=== PATIENT | female | born 1935 | race Caucasian/White ===

== ENCOUNTER 2017-06-25 11:35 | Emergency (ER) | payer MEDICARE, OTHER ==
[~2017-06-25] VITALS: Ht 170.2 cm; Wt 58.1 kg
[~2017-06-25 11:35] MED LIST: ALBIPROI; ALBU90OI; ALBU90OI61 INH; ATEN50; BECL40OI INH; CIPHYDOTSU AS; CITA20; CITA20 PO; CLON.1; LEVO750 PO; LISI10; LISI20 PO; LORA.5 PO; LOVA40; Lopressor PO; METO25ER PO; METO50 PO; OMEP20ER; OMEP20ER PO; Percocet 5-3251 EACH PO; QVAR; RXLORA1 PO; SIMV10 PO; VICODIN 5-3001 EACH PO; WARF5; WARF5 PO; Zocor PO; Zofran4 MG PO
[2017-06-25 12:14] LABS: BASOPHILS ABSOLUTE AUTO 0.04 K/mm3 (0.00-0.23); BASOPHILS PERCENT AUTO 1 % (0-2); EOSINOPHILS ABSOLUTE AUTO 0.06 K/mm3 (0.00-0.68); EOSINOPHILS PERCENT AUTO 1 % (0-6); Hematocrit 40.7 % (33.0-51.0); Hemoglobin 13.3 g/dL (11.5-16.0); IMMATURE GRAN ABSOLUTE AUTO 0.01 K/mm3 (0.00-0.10); IMMATURE GRAN PERCENT AUTO 0 % (0-1); LYMPHOCYTES PERCENT AUTO 13 % (21-46); MONOCYTES ABSOLUTE AUTO 0.56 K/mm3 (0.16-1.47); MONOCYTES PERCENT AUTO 11 % (4-13); Mean Corpuscular HGB 31.1 pg (26.0-34.0); Mean Corpuscular HGB Conc 32.7 g/dL (31.5-36.5); Mean Corpuscular Volume 95 fL (80-100); Mean Platelet Volume 10.8 fL (9.1-12.4); NEUTROPHILS ABSOLUTE AUTO 3.91 K/mm3 (1.96-9.15); NEUTROPHILS PERCENT AUTO 74 % (41-73); Platelet Count 191 K/mm3 (150-400); RDW Coefficient Variation 15.7 % (11.7-14.2); Red Blood Cell Count 4.28 M/mm3 (3.80-5.20); White Blood Cell Count 5.28 K/mm3 (4.00-11.30)
[2017-06-25 12:41] LABS: Alanine Aminotransfer (ALT/SGP 40 U/L (12-78); Albumin, Blood 2.8 g/dL (3.4-5.0); Albumin/Globulin Ratio 0.5 (0.8-1.8); Alk Phos 185 U/L (50-136); Anion Gap 8 mmol/L (6-16); Aspartate Aminotrans (AST/SGOT 48 U/L (12-37); Bilirubin, Total 1.5 mg/dL (0.1-1.0); Blood Urea Nitrogen 15 mg/dL (8-24); Bun/Creatinine Ratio 22.4 (12.0-20.0); CO2, Blood 24 mmol/L (21-32); Calcium, Blood 8.8 mg/dL (8.5-10.1); Chloride, Blood 104 mmol/L (98-108); Creatinine, Blood 0.67 mg/dL (0.40-1.00); Globulin, Blood 5.3 g/dL (2.2-4.0); Glomerular Filtration Rate >60 (60-); Glucose, Blood 92 mg/dL (70-99); Potassium, Blood 3.3 mmol/L (3.5-5.5); Sodium, Blood 136 mmol/L (136-145); Total Protein, Blood 8.1 g/dL (6.4-8.2); Troponin I 0.021 ng/mL (0.000-0.040)
[2017-06-25 13:46] LABS: International Normalized Ratio 2.55; Prothrombin Time Results 27.3 Sec (9.7-11.5)
[2017-06-25] MEDS ORDERED: LEVFLO500 PO (14:11)
== END 2017-06-25 14:22 | disposition home or self-care (01) ==
LOC: ER 11:35
PROVIDERS: Emergency Medicine
DX: J44.0 Chronic obstructive pulmonary disease with (acute) lower respiratory infection (principal); J18.9 Pneumonia, unspecified organism; I48.91 Unspecified atrial fibrillation; I10 Essential (primary) hypertension; Z88.1 Allergy status to other antibiotic agents; Z88.0 Allergy status to penicillin; Z88.2 Allergy status to sulfonamides; Z79.899 Other long term (current) drug therapy; Z79.01 Long term (current) use of anticoagulants
CPT/HCPCS: 36415; 71045; 80053; 83880; 84484; 85025; 85610; 93005; 93010; 94640; 96374; 99283; J2930

== ENCOUNTER 2018-02-05 11:36 | Inpatient (IN) | payer MEDICARE, OTHER ==
[~2018-02-05] VITALS: Ht 170.2 cm; Wt 72.4 kg
[~2018-02-05 11:36] MED LIST changes: +LEVFLO500 PO
[2018-02-05 12:35] LABS: BASOPHILS ABSOLUTE AUTO 0.02 K/mm3 (0.00-0.23); BASOPHILS PERCENT AUTO 0 % (0-2); EOSINOPHILS ABSOLUTE AUTO 0.08 K/mm3 (0.00-0.68); EOSINOPHILS PERCENT AUTO 1 % (0-6); Hematocrit 42.8 % (33.0-51.0); Hemoglobin 13.3 g/dL (11.5-16.0); IMMATURE GRAN ABSOLUTE AUTO 0.05 K/mm3 (0.00-0.10); IMMATURE GRAN PERCENT AUTO 1 % (0-1); LYMPHOCYTES ABSOLUTE AUTO 1.29 K/mm3 (0.84-5.20); LYMPHOCYTES PERCENT AUTO 20 % (21-46); MONOCYTES ABSOLUTE AUTO 0.85 K/mm3 (0.16-1.47); MONOCYTES PERCENT AUTO 13 % (4-13); Mean Corpuscular HGB Conc 31.1 g/dL (31.5-36.5); Mean Corpuscular Volume 100 fL (80-100); Mean Platelet Volume 11.5 fL (9.1-12.4); NEUTROPHILS PERCENT AUTO 64 % (41-73); Platelet Count 176 K/mm3 (150-400); RDW Coefficient Variation 15.8 % (11.7-14.2); RDW Standard Deviation 57.3 fL (35.1-46.3); Red Blood Cell Count 4.29 M/mm3 (3.80-5.20); White Blood Cell Count 6.39 K/mm3 (4.00-11.30)
[2018-02-05 12:50] LABS: Albumin/Globulin Ratio 0.6 (0.8-1.8); Bilirubin, Total 1.3 mg/dL (0.1-1.0); Creatinine, Blood 1.15 mg/dL (0.40-1.00); Globulin, Blood 5.3 g/dL (2.2-4.0); Potassium, Blood 4.1 mmol/L (3.5-5.5); Total Protein, Blood 8.3 g/dL (6.4-8.2)
[2018-02-05 12:54] LABS: Prothrombin Time Results 41.9 Sec (9.7-11.5)
[2018-02-05 13:10] LABS: International Normalized Ratio 4.43
[2018-02-05 16:45] LABS: Source, Urine Catheter
[2018-02-05 16:55] LABS: Appearance, Urine Clear (Clear); Blood, Urine 2+ (Neg); Color, Urine Yellow (P-Yellow); Glucose Qualitative, Urine Neg (Neg); Ketones, Urine Neg (Neg); Leukocyte Esterase, Urine 1+ (Neg); Nitrite, Urine Neg (Neg); Protein, Urine 3+ (Neg); Specific Gravity, Urine 1.025 (1.003-1.022); Urobilinogen, Urine 2+ (Normal)
[2018-02-05] MEDS ORDERED: Prilosec Otc20 MG (16:59)
[2018-02-05 17:07] LABS: Bilirubin, Urine 1+ (Neg)
[2018-02-05 17:37] LABS: Bacteria Rare /hpf; Red Blood Cells, Urine 0-2 /hpf (0-2); Squamous Epithelial Cells Few /hpf (Few)
--- NOTE | 2018-02-05 18:21 | NUR ---
SUMMARY PT ADMITTED TO THE FLOOR, FAMILY AT THE BEDSIDE. FFP STARTED PER ORDERS, PT IS TOLERATING INFUSION WITH NO PROBLEMS AT THIS POINT. RIGHT LEG ETERNALLY ROTATED, PEDAL PULSE INTACT. BILATERAL LEGS ELEVATED ON PILLOWS. PT'S FAMILY STATED PT HIT HER HEAD DURING THE FALL. WAS NOTIFIED VIA PHONE. NEURO CHECKS WNL. PAIN MEDICATED WITH PO PAIN MEDICATION. FISCHER CATH WAS PLACED PER JONNATHAN, URINE SAMPLE SENT. IV LASIX ADMINISTERED. LUNGS ARE DIMINISHED THROUGH OUT. PT IS 92% ON 4 L 02 VIA OXIMIZER, DENIES SOB/CP. WCTM AT THIS TIME.
--- NOTE | 2018-02-05 19:15 | NUR ---
UNIT 2 OF 3 FFP'S STARTED. WILL CONTINUE TO MONITOR.
--- NOTE | 2018-02-05 21:45 | NUR ---
UNIT 2 OF 3 FFP'S COMPLETED. PIV FLUSHES WITH EASE. TOELRATED WELL. SAFETY MEASURES IN PLACE. WILL CONTINUE TO MONITOR.
--- NOTE | 2018-02-05 21:51 | NUR ---
UNIT 3 OF 3 FFP'S STARTED. WILL CONTINUE TO MONITOR.
--- NOTE | 2018-02-05 23:45 | NUR ---
UNIT 3 OF 3 FFP'S COMPLETED, PIV FLUSED WITH EASE, TOLERATED WELL. SAFETY MEASURES IN PLACE. WILL CONTINUE TO MONITOR.
[2018-02-06 01:54] LABS: BASOPHILS ABSOLUTE AUTO 0.01 K/mm3 (0.00-0.23); BASOPHILS PERCENT AUTO 0 % (0-2); EOSINOPHILS PERCENT AUTO 0 % (0-6); Hematocrit 39.7 % (33.0-51.0); Hemoglobin 12.4 g/dL (11.5-16.0); IMMATURE GRAN ABSOLUTE AUTO 0.02 K/mm3 (0.00-0.10); IMMATURE GRAN PERCENT AUTO 0 % (0-1); LYMPHOCYTES ABSOLUTE AUTO 0.36 K/mm3 (0.84-5.20); LYMPHOCYTES PERCENT AUTO 6 % (21-46); MONOCYTES ABSOLUTE AUTO 0.87 K/mm3 (0.16-1.47); MONOCYTES PERCENT AUTO 14 % (4-13); Mean Corpuscular HGB 30.5 pg (26.0-34.0); Mean Corpuscular HGB Conc 31.2 g/dL (31.5-36.5); Mean Corpuscular Volume 98 fL (80-100); Mean Platelet Volume 11.8 fL (9.1-12.4); NEUTROPHILS ABSOLUTE AUTO 4.83 K/mm3 (1.96-9.15); NEUTROPHILS PERCENT AUTO 79 % (41-73); Platelet Count 144 K/mm3 (150-400); RDW Coefficient Variation 15.9 % (11.7-14.2); RDW Standard Deviation 56.6 fL (35.1-46.3); Red Blood Cell Count 4.06 M/mm3 (3.80-5.20); White Blood Cell Count 6.09 K/mm3 (4.00-11.30)
[2018-02-06 02:06] LABS: Bun/Creatinine Ratio 21.8 (12.0-20.0); Calcium, Blood 9.2 mg/dL (8.5-10.1); Creatinine, Blood 1.19 mg/dL (0.40-1.00); Potassium, Blood 4.7 mmol/L (3.5-5.5)
[2018-02-06 02:08] LABS: International Normalized Ratio 2.39; Prothrombin Time Results 23.4 Sec (9.7-11.5)
--- NOTE | 2018-02-06 05:00 | NUR ---
HEPARIN ORDER VERIFIED WITH PHARMACY REGUARDING WHEN TO RESTART IT. CURRENT INR AT 2.39. WILL CONTINUE TO MONITOR.
--- NOTE | 2018-02-06 06:42 | NUR ---
LYING IN SEMI FOWLERS WITH EYES CLOSED. 3 UNITS OF FFP'S GIVEN AND HEPARIN DRIP STARTED PER MD ORDER. PAIN MANAGED WIRH TYLENOL AND ULTRAM. NO FURTHER CHANGES SINCE START OF SHIFT. SAFETY MEASURES IN PLACE. WILL GIVE HAND OFF TO ONCOMING SHIFT.
--- NOTE | 2018-02-06 08:38 | NUR ---
PATIENT AND DAUGHTER SPOKE WITH HOSP REP RE CODE STATUS: CHANGE TO FULL CODE.
--- NOTE | 2018-02-06 09:13 | NUR ---
Jeb was completing a nebulizer treatment and appeared comfortable and well supported. Her daughter was on site showing attention and concern. I engaged them in conversation, answered questions about her code status, and offered advance care planning education. No impediments encountered. The room engaged well, showed clear signs of interest and verbalized comprehension. POLST and OHD Advance Directive distributed and explained. Code status altered per request of principal from DNR /DNI to Full Code. Patient / Family have agreed to pursue a larger discussion around medical treatment preferences upon discharge, and complete and file a POLST / AD. I also provided pastoral companionship, words of reassurance and audible prayer for restored strength, healing and endurance.
[2018-02-06 10:43] LABS: International Normalized Ratio 2.1; Prothrombin Time Results 20.7 Sec (9.7-11.5)
--- NOTE | 2018-02-06 11:57 | NUR ---
HEPARIN GTT ADJUSTED TO 18.5 ML/HOUR PER PHARMACTY (14MG/KG/HR)
--- NOTE | 2018-02-06 12:12 | NUR ---
HEPARIN GTT RATE CHANGED TO 19.9 ML/HR PER PHARMACY.
--- NOTE | 2018-02-06 17:09 | NUR ---
SHIFT SUMMARY PATIENT STATES PAIN CONTROLLED WITH PO AND IV PAIN MED. TOLERATING PO. REPOSITIONED FOR COMFORT, SKIN INTEGRITY. DAUGHTERS IN MOST OF SHIFT. PLAN FOR OC TO OR TOMORROW.
--- NOTE | 2018-02-06 20:07 | NUR ---
DEBBIE BACK CONTACTED AND GIVEN INFORMATION OF CRITICAL VALUE OF APTT OF 104.8 WHO THEN INSTRUCTED NURSING TO CONTACT PHARMACY WHO IS MANAGING THE HEPARIN DRIP. HEPARIN DRIP TITRATED TO 18.5ML/HR PER PHARMACY. WILL CONTINUE TO MONITOR.
--- NOTE | 2018-02-07 05:15 | NUR ---
HEPARIN DRIP CHANGED PER PHARMACY AFTER SECOND CRITICAL LAB CALLED OF PTT OF 107.3. HEPARIN DRIP TO BE D/C AT 0700HRS THIS AM.
[2018-02-07 06:53] LABS: International Normalized Ratio 2.52; Prothrombin Time Results 24.6 Sec (9.7-11.5)
[2018-02-07 09:32] LABS: International Normalized Ratio 1.74
[2018-02-07 09:35] LABS: Prothrombin Time Results 17.4 Sec (9.7-11.5)
[2018-02-07 11:02] LABS: International Normalized Ratio 1.52; Prothrombin Time Results 15.3 Sec (9.7-11.5)
--- NOTE | 2018-02-07 11:10 | NUR ---
PT TO PRE OP VIA HOSPITAL BED
--- NOTE | 2018-02-07 11:51 | NUR ---
DAY SURGERY RN | CALL FROM PHARMACY This RN entered verbal orders from Dr. Baca for cefazolin 2g. The computer flagged the medication as reactive with allergies in the EMAR. Clarified order with Dr. Baca stating that the patient had a history of allergic reaction. He stated that "I still want to give it anyway". This RN took a call from Janny (pharmacist) stating that "this looks like a real allergy" and advised to seek additional clarification from Dr. Baca. Padma Soliman recommended Clindamycin 900mg instead. This RN clarified a second time with Dr. Baca and he stated he wished to continue with administration of 2g of cefazolin. This was relayed to Janny Pharmacist by Beatriz MERRILL.
--- NOTE | 2018-02-07 12:08 | NUR ---
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 Baca and Dr. Starr saw the patient in PACU. Consents signed. Report to Kimmy MERRILL."
--- NOTE | 2018-02-07 12:41 | NUR ---
02/07/18 1241 Cat Nino PT ARRIVED TO OR WITH FISCHER CATH IN PLACE. DR MENDOZA CONFIRMED TO HAVE ANCEF GIVEN IV.
--- NOTE | 2018-02-07 14:00 | NUR ---
DR HORVATH HERE TO SEE PT; ORDERS RECEIVED.
--- NOTE | 2018-02-07 15:42 | NUR ---
OR TRANSFER AT 1345 POST RIGHT PRITESH ARTHROPLASTY. REPORT RECEIVED FROM DR URENA. PT IS INTUBATED AND CURRENTLY NOT ON SEDATION. PT OPENS HER EYES AND FOLLOWS COMMANDS. SHE SHAKES HER HEAD "NO" WHEN ASKED IF SHE IS HAVING PAIN. CURRENT VENT SETTINGS: A/C 16, TV 450, PEEP 5 AND FI02 OF 30%. SEE FLOWSHEET FOR VS. FAMILY HERE EARLIER AND UPDATED.
[2018-02-08 04:15] LABS: BASOPHILS ABSOLUTE AUTO 0.01 K/mm3 (0.00-0.23); BASOPHILS PERCENT AUTO 0 % (0-2); EOSINOPHILS PERCENT AUTO 0 % (0-6); Hematocrit 34.7 % (33.0-51.0); Hemoglobin 11.3 g/dL (11.5-16.0); IMMATURE GRAN ABSOLUTE AUTO 0.03 K/mm3 (0.00-0.10); IMMATURE GRAN PERCENT AUTO 0 % (0-1); LYMPHOCYTES ABSOLUTE AUTO 0.26 K/mm3 (0.84-5.20); LYMPHOCYTES PERCENT AUTO 4 % (21-46); MONOCYTES ABSOLUTE AUTO 0.93 K/mm3 (0.16-1.47); MONOCYTES PERCENT AUTO 13 % (4-13); Mean Corpuscular HGB Conc 32.6 g/dL (31.5-36.5); Mean Platelet Volume 12.1 fL (9.1-12.4); NEUTROPHILS ABSOLUTE AUTO 5.86 K/mm3 (1.96-9.15); NEUTROPHILS PERCENT AUTO 83 % (41-73); Platelet Count 125 K/mm3 (150-400); RDW Coefficient Variation 15.9 % (11.7-14.2); RDW Standard Deviation 54.3 fL (35.1-46.3); Red Blood Cell Count 3.64 M/mm3 (3.80-5.20); White Blood Cell Count 7.09 K/mm3 (4.00-11.30)
[2018-02-08 04:18] LABS: Mean Corpuscular Volume 95 fL (80-100)
[2018-02-08 04:39] LABS: Calcium, Blood 8.9 mg/dL (8.5-10.1); Creatinine, Blood 1.03 mg/dL (0.40-1.00); Potassium, Blood 3.9 mmol/L (3.5-5.5)
[2018-02-08 05:46] LABS: PO2 Arterial 74.4 mmHg (80-100); pH Blood Arterial 7.63 (7.35-7.45)
--- NOTE | 2018-02-08 06:21 | NUR ---
EARLY IN SHIFT PT NOTED TO BE "GUMMING" ON OG TUBE & W FURROWED BROW. BP & HR ALSO SL ELEVATED. PT WAS MED W FENTANYL 25 MCG & ALSO ULTRAM. PROPOFOL GTT FOR SEDATION & CONT W BILAT WRIST RESTRAINTS. PT AROUSES EASILY, ABLE TO NOD YES, BUT GEN SLEEPY. CONT AFIB. DURING WEANING TRIAL THIS AM, BP AGAIN ELEVATED & RR INCREASED. PROPOFOL RESTARTED AT 10 MCG/KG/MIN. DR BENITEZ NOTIFIED RE DVT PROPHYLAXIS. HE ADVISED THAT DR GATICA WOULD BE IN THIS AM TO SEE PT.
--- NOTE | 2018-02-08 09:43 | NUR ---
0730-ASSUMED CARE OF PT. PT IS SEDATED WITH 10MCG/KG/MIN OF PROPOFOL. NOTED PT IS GRIMACING, SLIGHTLY AWAKE, BUT NOT FOLLOWING COMMANDS. PT TRIES TO OPEN EYES TO VOICE. DR. GATICA AT BEDSIDE. UPDATED HIM OF PT'S STATUS. 09-HEPARIN DRIP WAS STARTED AT 11UNITS/KG/HR ORDERED. INCREASED PROPOFOL DRIP AT 25MCG/KG/MIN. PT HAS BEEN TEARFUL, INCOMFORTABLE, PT HAD RECEIVED A DOSE OF OXYCODONE. PT IS MOUTHING WORDS "THIRSTY." EXPLAINED TO PT THAT HOPEFULLY WE WILL BE ABLE TO EXTUBATE HER TODAY. PT'S DAUGHTER ADARSH AT BEDSIDE. UPDATED HER OF PT'S STATUS.
--- NOTE | 2018-02-08 09:49 | NUR ---
WHEN DR. WARNER CAME TO SEE PT. SHE WAS ALSO NOTIFIED REGARDING PT'S HEART RATE LOW 30M BEATS/MIN. PT HAD STATED THAT SHE ALWAYS HAS A LOW HR BUT NOT LOW 30 BEATS/MIN.
--- NOTE | 2018-02-08 10:03 | NUR ---
DR. GATICA WAS NOTIFIED REGARDING PT'S HR STILL ON THE 140s-150s DESPITE THE 25MG OF METOPROLOL THAT WAS GIVEN. ORDERS RECEIVED TO GIVE ANOTHER DOSE OF LOPRESSOR 25MG.
--- NOTE | 2018-02-08 11:51 | NUR ---
DR. HORVATH IS AWARE PT'S HR STILL IN THE 120s-130S DESPITE THE EXTRA DOSE OF LOPRESSOR. PT WAS STARTED ON AMIODARONE DRIP @ 1MG/MIN FOR 6 HOURS THEN 0.5MG/MIN THEREAFTER. PT RECEIVED 150MG IV BOLUS BEFORE DRIP WAS STARTED. PT'S HR CURRENTLY AT 102-110 BEATS/MIN. PT IS RECEIVING A 250ML BOLUS AT THIS TIME.
[2018-02-08 12:28] LABS: Hematocrit 33.8 % (33.0-51.0); Hemoglobin 11.1 g/dL (11.5-16.0)
--- NOTE | 2018-02-08 15:21 | NUR ---
PT WAS PLACED ON PRESSURE SUPPORT BY DR. HORVATH. SETTINGS ARE 9/5 FIO2 30%.
[2018-02-08 15:42] LABS: PCO2 Arterial 39.1 mmHg (35-45); PO2 Arterial 63.9 mmHg (80-100)
[2018-02-08 17:11] LABS: Hematocrit 38.6 % (33.0-51.0); Hemoglobin 12.3 g/dL (11.5-16.0)
--- NOTE | 2018-02-08 18:28 | NUR ---
DR. HORVATH WAS NOTIFIED REGARDING PT'S LOW URINE OUTPUT. INFORMED HER REGARDING PT'S SWALLOWING, PT WAS HAVING A LITTLE TROUBLE WITH CLEAR LIQUIDS, DID FINE WITH APPLESAUCE.
--- NOTE | 2018-02-08 19:19 | NUR ---
SHIFT SUMMARY: PT IS ALERT AND ORIENTED. PT WAS RECENTLY EXTUBATED THIS AFTERNOON AT 1557. PT IS CURRENTLY ON 2LPM NC. PT WAS CURRENTLY MEDICATED WITH ULTRAM. PT HAD A DOSE OF FENTANYL 12.5MCG FOR HIP PAIN POST EXTUBATION. SHE ALSO RECEIVED A DOSE OF OXYCODONE THIS MORNING. DRESSING TO R HIP IS DRY AND INTACT. PT WAS ABLE TO SWALLOW THIN LIQUIDS BUT WAS HAVING A LITTLE BIT OF DIFFICULTY SWALLOWING. PT DID NOT HAVE ANY DIFFICULTY WHEN SHE SWALLOWED APPLESAUCE ALONG WITH HER CRUSHED PILLS. PT STILL ON HEPARIN DRIP @ 12 UNIT/KG/HR. AMIODARONE DRIP STILL @ 1MG/MIN. DAUGHTERS BEEN AT BEDSIDE SINCE THIS MORNING.
--- NOTE | 2018-02-08 20:00 | NUR ---
PT RESTING IN BED. DENIES PAIN, SOB, AND N/V. ABLE TO STATE HOSPITAL NAME AND THAT IT'S [facility] TIME. HAS C/D/I DRESSING TO R HIP. NO SIGN OF DISTRESS.
[2018-02-09 00:37] LABS: Hematocrit 37.6 % (33.0-51.0)
[2018-02-09 04:18] LABS: BASOPHILS ABSOLUTE AUTO 0.01 K/mm3 (0.00-0.23); BASOPHILS PERCENT AUTO 0 % (0-2); EOSINOPHILS ABSOLUTE AUTO 0.01 K/mm3 (0.00-0.68); EOSINOPHILS PERCENT AUTO 0 % (0-6); Hematocrit 38.1 % (33.0-51.0); Hemoglobin 12.2 g/dL (11.5-16.0); IMMATURE GRAN ABSOLUTE AUTO 0.06 K/mm3 (0.00-0.10); IMMATURE GRAN PERCENT AUTO 1 % (0-1); LYMPHOCYTES ABSOLUTE AUTO 0.29 K/mm3 (0.84-5.20); LYMPHOCYTES PERCENT AUTO 3 % (21-46); MONOCYTES ABSOLUTE AUTO 1.57 K/mm3 (0.16-1.47); MONOCYTES PERCENT AUTO 13 % (4-13); Mean Corpuscular HGB 31.6 pg (26.0-34.0); Mean Corpuscular Volume 99 fL (80-100); Mean Platelet Volume 12.5 fL (9.1-12.4); NEUTROPHILS ABSOLUTE AUTO 9.84 K/mm3 (1.96-9.15); NEUTROPHILS PERCENT AUTO 84 % (41-73); NRBC ABSOLUTE 0.02 K/mm3 (0.00-0.02); NRBC Auto 0.2 /100 WBC (0.0-0.2); Platelet Count 147 K/mm3 (150-400); RDW Coefficient Variation 16.6 % (11.7-14.2); RDW Standard Deviation 58.9 fL (35.1-46.3); Red Blood Cell Count 3.86 M/mm3 (3.80-5.20); White Blood Cell Count 11.78 K/mm3 (4.00-11.30)
[2018-02-09 04:45] LABS: International Normalized Ratio 1.53; Prothrombin Time Results 15.4 Sec (9.7-11.5)
[2018-02-09 04:51] LABS: Bun/Creatinine Ratio 30.1 (12.0-20.0); Calcium, Blood 8.6 mg/dL (8.5-10.1); Creatinine, Blood 1.63 mg/dL (0.40-1.00); Potassium, Blood 4.2 mmol/L (3.5-5.5)
[2018-02-09 05:07] LABS: PCO2 Arterial 53.2 mmHg (35-45); PO2 Arterial 77.3 mmHg (80-100); pH Blood Arterial 7.38 (7.35-7.45)
--- NOTE | 2018-02-09 06:32 | NUR ---
SUMMARY PT SLEPT A LOT OF THE NIGHT. GAVE OXYCODONE ONE TIME FOR R HIP PAIN WITH REPOSITIONING IN BED. DENIES N/V AND SOB. CALLED DR. HORVATH THIS AM ABOUT INCREASED BNP, DECREASED URINE OUTPUT, AND CREATININE LEVEL. NEW ORDER FOR LASIX AND TO HOLD CARLOS INHIBITORS. NO SIGN OF DISTRESS.
--- NOTE | 2018-02-09 08:09 | NUR ---
ASSUMED CARE OF PT. PT IS SLEEPING SOUNDLY. PT OPENS EYES TO VOICE. FOLLOWING COMMANDS. AMIODARONE DRIP @ 0.5MMG/MIN. DENIES PAIN AT THIS TIME. PT SEEN BY DR. GATICA. UPDATED HIM OF PT'S STATUS. PT'S STATUS NOW CHANGED TO PCU. PT'S SWALLOWING HAS IMPROVED FROM YESTERDAY. PT STILL HAS SLIGHT DIFFIUCLTY SWALLOWING DUE TO SORE THROAT FROM ET TUBE. DRESSING TO R HIP CLEAN DRY AND INTACT. STILL AFIB BUT CONTROLLED RHYTHM.
[2018-02-09 13:20] LABS: Hematocrit 38.1 % (33.0-51.0)
--- NOTE | 2018-02-09 13:41 | NUR ---
DR. KAM CAME BY TO VISIT PT. UPDATED HIM OF PT'S STATUS.
--- NOTE | 2018-02-09 13:42 | NUR ---
1123-NS 1 LITER BOLUS INFUSING AT THIS TIME ORDERED BY DR. HORVATH. PT'S BLOOD PRESSURE IN THE 70s-80s. SYSTOLIC. PT IS ALERT AND ORIENTED. FAMILY UPDATED OF PT'S CONDITION.
--- NOTE | 2018-02-09 14:34 | NUR ---
IRRIGATED FISCHER CATH WITH CLEAR NS SOLUTION TO CHECK FOR ANY CLOTS. NO CLOTS NOTED, LIGHT RED DRAIN NOTED INITIALLY BUT CLEARED AFTER 3RD FLUSH.
--- NOTE | 2018-02-09 16:51 | NUR ---
PICC LINE NURSE, STILL ATTEMPTING TO PLACE PICC. BLOOD PRESSURE IMPROVED. STILL WITH ONLY 100 CC OUTPUT SINCE THIS MORNING. DR. HORVATH IS AWARE.
--- NOTE | 2018-02-09 18:53 | NUR ---
ORDERS NOTED CONSENT SIGNED BY DAUGHTER HERMILO MOORE.
--- NOTE | 2018-02-09 19:16 | NUR ---
SHIFT SUMMARY: PT IS ALERT AND ORIENTED. STILL ONLY HAS 100ML OF UO THROUGH OUT THE SHIFT. DR. HORVATH IS AWARE. BLOOD PRESSURE HAS IMPROVED. PICC LINE WAS JUST PLACED.
--- NOTE | 2018-02-09 19:52 | NUR ---
PICC LINE IN LUE, CEPHALIC.
--- NOTE | 2018-02-09 20:12 | NUR ---
[place] of Care: Patient drowsy, but responding to verbal stimuli, oriented x4, slow to respond. Denies pain, discomfort, SOB, or dyspnea at this time. Heart rhythm shows A-fibb in the 90's, BP stable, O2- 96% on 3L/NC. PICC line retracted by 4cm at start of shift, 15cm now exposed, draws and flushes wnl. Heparin gtt infusing at 14u/kg/hr dosed at 67kg. Dressing to rt hip C/D/I, will follow hp precautions when turning. Hazel cath in place, minimal amount of blood tinged urine seen in collection tube. Family at bedside. Will continue to monitor for pain, comfort, safety.
[2018-02-10 03:34] LABS: BASOPHILS ABSOLUTE AUTO 0.01 K/mm3 (0.00-0.23); BASOPHILS PERCENT AUTO 0 % (0-2); EOSINOPHILS PERCENT AUTO 0 % (0-6); Hematocrit 38.8 % (33.0-51.0); Hemoglobin 12.2 g/dL (11.5-16.0); IMMATURE GRAN ABSOLUTE AUTO 0.04 K/mm3 (0.00-0.10); IMMATURE GRAN PERCENT AUTO 0 % (0-1); LYMPHOCYTES ABSOLUTE AUTO 0.22 K/mm3 (0.84-5.20); LYMPHOCYTES PERCENT AUTO 2 % (21-46); MONOCYTES PERCENT AUTO 15 % (4-13); Mean Corpuscular HGB 31.1 pg (26.0-34.0); Mean Corpuscular HGB Conc 31.4 g/dL (31.5-36.5); Mean Corpuscular Volume 99 fL (80-100); Mean Platelet Volume 12.2 fL (9.1-12.4); NEUTROPHILS PERCENT AUTO 82 % (41-73); NRBC ABSOLUTE 0.09 K/mm3 (0.00-0.02); NRBC Auto 0.9 /100 WBC (0.0-0.2); Platelet Count 194 K/mm3 (150-400); RDW Coefficient Variation 16.8 % (11.7-14.2); RDW Standard Deviation 59.5 fL (35.1-46.3); Red Blood Cell Count 3.92 M/mm3 (3.80-5.20); White Blood Cell Count 9.77 K/mm3 (4.00-11.30)
[2018-02-10 03:49] LABS: Albumin, Blood 2.4 g/dL (3.4-5.0); Anion Gap 7 mmol/L (6-16); Blood Urea Nitrogen 63 mg/dL (8-24); CO2, Blood 30 mmol/L (21-32); Calcium, Blood 8.2 mg/dL (8.5-10.1); Chloride, Blood 99 mmol/L (98-108); Creatinine, Blood 2.62 mg/dL (0.40-1.00); Glomerular Filtration Rate 19 (60-); Glucose, Blood 99 mg/dL (70-99); Magnesium, Blood 1.9 mg/dL (1.6-2.4); Phosphorus, Blood 6.3 mg/dL (2.5-4.9); Potassium, Blood 4.9 mmol/L (3.5-5.5); Sodium, Blood 136 mmol/L (136-145)
[2018-02-10 04:39] LABS: PCO2 Arterial 60.8 mmHg (35-45); PO2 Arterial 78.7 mmHg (80-100)
--- NOTE | 2018-02-10 06:29 | NUR ---
Shift Summary: Patient drowsy/sleeping throughout shift, but easily roused via verbal stimuli. Appears drowsy and lethargic when awake, slow to respond verbally, quickly goes back to sleep when not stimulated. Levophed gtt started at approx 0100hr, at 2mcg/min, titrated between 2-4mcg/min throughout remainder of shift. Contacted Dr. Galvan this morning r/t scant urine output (25ml), hematuria, ABG results, decreased respiratory rate (10-12 when sleeping), and LOC. Received orders for x2 blood cultures, urine culture, BiPAP 10/5 when sleeping, and to consult Dr. Roberts. Patient tolerating BiPAP mask without difficulty (appears comfortable), but respiratory rate occasionally increases to high 30's with low tidal volumes, decreased back to rate low 20's with tidal volumes over 300. Rt hip dressing remains C/D/I. PICC to VLADISLAV remains patent and intact. Will continue to monitor until report to day shift RN.
[2018-02-10 09:01] LABS: International Normalized Ratio 2.62; Prothrombin Time Results 25.6 Sec (9.7-11.5)
--- NOTE | 2018-02-10 10:24 | NUR ---
PT UPDATE: SPEECH THERAPY WORKED WITH PT AND REPORTS CONTINUE THICKENED LIQ/NO STRAW/PUREE DIET. DR HORVATH IN TO ASSESS PT AND WILL ORDER CLINIMIX TO ASSIST WITH NUTRITIONAL STATUS, PT IS NOT TAKING IN MUCH PO R/T FATIGUE. DISCUSSED DECREASING METOPROLOL DOSE R/T CONTINUED LOW BP'S. ATTEMPTED TO TAKE PT OFF OF LEVOPHED MAP WAS >70 ON 2MCG/MIN, BUT MAP DROPPED TO <65. RESTARTED LEVOPHED AT 2MCG/MIN. HELD METOPROLOL THIS AM. WILL SEND A URINE ANALYSIS PER DR HORVATH A CX WAS SENT OFF ON NOC SHIFT.
[2018-02-10 11:55] LABS: Base Excess Venous 4.8 mmol/L; PCO2 Venous 58.2 mmHg (38-42); PO2 Venous 45.7 mmHg (38-42); pH Blood Venous 7.33 (7.34-7.37)
--- NOTE | 2018-02-10 12:03 | NUR ---
DR CONNOR IN TO ASSESS PT. DRSG TO RT HIP CHANGED PER DR. RT HIP WITH FLORIN IN PLACE. NO S/SX OF INFECTION/DRAINAGE/BLEEDING. GAUZE AND MEFIX NOW OVER SURGICAL SITE.
[2018-02-10 12:28] LABS: Source, Urine Catheter
[2018-02-10 12:35] LABS: Blood, Urine 5+ (Neg); Glucose Qualitative, Urine Neg (Neg); Ketones, Urine 1+ (Neg); Leukocyte Esterase, Urine 2+ (Neg); Nitrite, Urine Neg (Neg); Protein, Urine 3+ (Neg); Specific Gravity, Urine 1.025 (1.003-1.022); Urobilinogen, Urine NORM (Normal)
[2018-02-10 12:54] LABS: Appearance, Urine Cloudy (Clear); Bilirubin, Urine 1+ (Neg); Color, Urine Amber (P-Yellow)
[2018-02-10 12:55] LABS: Bacteria Few /hpf; Red Blood Cells, Urine TNTC /hpf (0-2); Squamous Epithelial Cells Few /hpf (Few); White Blood Cells, Urine TNTC /hpf (0-5)
--- NOTE | 2018-02-10 17:35 | NUR ---
DR JACOBSON IN TO CONSULT WITH PT. PT'S DAUGHTER AT THE BEDSIDE. DR JACOBSON UPDATED ON STATUS OF KIDNEYS. SEE NEW ORDERS.
--- NOTE | 2018-02-10 17:50 | NUR ---
SHIFT SUMMARY: PT IS ALERT AND ORIENTED X3. PT IS VERY SLOW TO ANSWER QUESTIONS, BUT ANSWERS THEM APPROPRIATELY. PLEASANT AND COOPERATIVE WITH CARE. PT IS SLIGHTLY LIME, AND HEARS BETTER OUT OF THE LT EAR. DOES NOT WEAR HEARING AIDS. MANAGING RT HIP PAIN R/T SURGICAL REPAIR OF RT HIP WITH FENTANYL/OXYCODONE. PHYSICAL THERAPY IN TO WORK WITH PT. PT AND FAMILY SHOWN IN BED EXERCISES AND PT'S DUAGHTER VERY HELPFUL IN ENCOURAGING PT TO DO EXERCISES AND USE IS. LUNGS ARE CLEAR BUT DIMINISHED T/O BILATERALLY. PT TAKES VERY SHALLOW BREATHES, BUT 02 SATS >90% ON HOME 02 DOSE OF 3L PER N/C. PT DID REQUIRE BIPAP DURING THE NOC FOR SHALLOW RESPIRATIONS. HR IRREGULAR, ATRIAL FIB-LOW 100'S RANGE. HEPARIN GTT D/C'D AND PT STARTED BACK ON COUMADIN. UNABLE TO WEAN PT COMPLETELY OFF OF LEVOPHED. PT HAS CONT TO NEED LEVOPHED AT 1MCG/MIN. SPEECH RE-EVALUATED PT THIS AM AND REPORTS TO CONTINUE PUREED DIET AND THICKENED LIQ/NO STRAWS. PT STARTED ON CLINIMIX TO SUPPORT NUTRITIONAL STATUS. -FULL CODE STATUS.
--- NOTE | 2018-02-10 19:15 | NUR ---
REPORTED OFF TO DESIRAE WORRELL WHOM WILL ASSUME CARE OF THIS PT.
--- NOTE | 2018-02-10 19:15 | NUR ---
ASSUMING CARE / DR. HORVATH ASSUMING CARE OF PT AT THIS TIME. PT REPORT RECEIVED AT BEDSIDE WITH OFFGOING NURSE, SALINA MERRILL. PT'S DAUGHTER AT BEDSIDE AT THIS TIME. PT LAYING IN BED, SLEEPING UPON ENTERING THE ROOM. VS STABLE - SEE VS FS. PT DOES NOT APPEAR TO BE IN DISTRESS AT THIS TIME. WILL REVEIW PLAN OF CARE.
--- NOTE | 2018-02-10 19:30 | NUR ---
ASSESSMENT PT CALM, QUIET, COOPERATIVE, RESPONDS TO VERBAL STIMULI, SPONT OPENS EYES, SLOW TO RESPOND, OTHERWISE TALKS AND ANSWERS QUESTIONS APPROPRIATELY, A&O EXCEPT TO DATE/TIME, SLEEPING IN BED. SENSATION INTACT BUE'S. N/T BLE'S. PT CORRAL. WEAKNESS NOTED. PT C/O 03/26 PAIN RIGHT HIP AND THROAT - MEDICATED WITH TYELNOL PER PHYSICIAN'S ORDER AND UTILIZED NONPHARM METHODS. PT ON 3L NC WITH HUMIDIFED AIR. BIPAP PRN: 01/18, FIO2 35%. OXY SAT >95% WHILE ON 3L NC WITH HUMIDIFIED AIR. RR 12. DENIES SOB. OCC WEAK, NONPRODUCTIVE COUGH. AFEBRILE. ATRIAL FLUTTER. HR 100'S. BP STABLE - SEE VS FS. LEVOPHED DRIP 1 MCG/MIN - WILL TITRATE TO EFFECT. FAINT PULSES. WARM, PINK SKIN. NON-PITTING EDEMA BUE'S AND BLE'S. HYPOACTIVE BT X4 QUADRANTS. ABD SOFT, NONTENDER. NO N/V. NO BM. ASPIRATION PRECAUTIONS. F/C IN PLACE - PINK, TEA COLORED URINE WITH BLOOD CLOTS. PICC SOY. PIV X1 - S. CLINIMIX AT 75 ML/HR.
[2018-02-11 03:29] LABS: Base Excess Venous 5.5 mmol/L; Bicarbonate Venous 27.3 mmol/L (24.0-30.0); PCO2 Venous 63.5 mmHg (38-42); PO2 Venous 36.6 mmHg (38-42); pH Blood Venous 7.31 (7.34-7.37)
[2018-02-11 03:43] LABS: BASOPHILS PERCENT AUTO 0 % (0-2); EOSINOPHILS ABSOLUTE AUTO 0.01 K/mm3 (0.00-0.68); EOSINOPHILS PERCENT AUTO 0 % (0-6); Hematocrit 35.6 % (33.0-51.0); Hemoglobin 11.2 g/dL (11.5-16.0); IMMATURE GRAN ABSOLUTE AUTO 0.02 K/mm3 (0.00-0.10); IMMATURE GRAN PERCENT AUTO 0 % (0-1); LYMPHOCYTES PERCENT AUTO 3 % (21-46); MONOCYTES ABSOLUTE AUTO 1.08 K/mm3 (0.16-1.47); MONOCYTES PERCENT AUTO 15 % (4-13); Mean Corpuscular HGB 31.1 pg (26.0-34.0); Mean Corpuscular HGB Conc 31.5 g/dL (31.5-36.5); Mean Corpuscular Volume 99 fL (80-100); Mean Platelet Volume 12.3 fL (9.1-12.4); NEUTROPHILS ABSOLUTE AUTO 5.96 K/mm3 (1.96-9.15); NEUTROPHILS PERCENT AUTO 82 % (41-73); NRBC ABSOLUTE 0.03 K/mm3 (0.00-0.02); NRBC Auto 0.4 /100 WBC (0.0-0.2); Platelet Count 162 K/mm3 (150-400); RDW Coefficient Variation 16.3 % (11.7-14.2); RDW Standard Deviation 58.2 fL (35.1-46.3); White Blood Cell Count 7.27 K/mm3 (4.00-11.30)
[2018-02-11 03:56] LABS: International Normalized Ratio 3.9; Prothrombin Time Results 37.2 Sec (9.7-11.5)
[2018-02-11 04:05] LABS: Alanine Aminotransfer (ALT/SGP 20 U/L (12-78); Albumin, Blood 2.2 g/dL (3.4-5.0); Albumin/Globulin Ratio 0.5 (0.8-1.8); Alk Phos 76 U/L (50-136); Anion Gap 5 mmol/L (6-16); Aspartate Aminotrans (AST/SGOT 27 U/L (12-37); Bilirubin, Direct 1.1 mg/dL (0.0-0.3); Bilirubin, Indirect 0.4 mg/dL (0.1-0.7); Bilirubin, Total 1.5 mg/dL (0.1-1.0); Blood Urea Nitrogen 83 mg/dL (8-24); Bun/Creatinine Ratio 29.1 (12.0-20.0); CO2, Blood 32 mmol/L (21-32); CPK Creatine Kinase 89 U/L (26-193); Calcium, Blood 7.7 mg/dL (8.5-10.1); Chloride, Blood 99 mmol/L (98-108); Creatinine, Blood 2.85 mg/dL (0.40-1.00); Globulin, Blood 4.1 g/dL (2.2-4.0); Glomerular Filtration Rate 17 (60-); Glucose, Blood 130 mg/dL (70-99); Phosphorus, Blood 5.9 mg/dL (2.5-4.9); Potassium, Blood 4.8 mmol/L (3.5-5.5); Sodium, Blood 136 mmol/L (136-145); Total Protein, Blood 6.3 g/dL (6.4-8.2)
--- NOTE | 2018-02-11 05:01 | NUR ---
SHIFT ASSESSMENT NO ACUTE CHANGES NOTED T/O SHIFT. PT CALM, QUIET, COOPERATIVE, SLEPT T/O SHIFT, LETHARGIC, DROWSY, QUICKLY FALLS BACK ASLEEP WITH DECREASING STIMULI, RESPONDS TO VERBAL STIMULI, SPONT OPNES EYES, SLOW TO RESPOND, OTHERWISE TALKS AND ANSWERS QUESTIONS APPROPRIATLEY, SOFT SPEECH, A&O EXCEPT TO DATE/TIME. SENSATION INTACT BUE'S. N/T BLE'S. PT CORRAL. WEAKNESS NOTED. PT C/O RIGHT HIP AND THROAT PAIN AT BEGINNING OF THE SHIFT THAT RESOLVED AFTER ADMINISTERING TYLENOL AND UTILIZING NONPHARM METHODS. LUNGS CLEAR, DIMINISHED LOWER LOBES. PT ON 3L NC WITH HUMIDIFED AIR. OXY SAT >90%. RR 10 TO 14. NO BIPAP T/O SHIFT. DENIES SOB. OCC WEAK, NONPRODUCTIVE COUGH. AFEBRILE. ATRIAL FLUTTER T/O SHIFT, BUT CONVERTED TO NSR TO ST THIS AM. HR 80'S TO 100'S. BP STABLE - SEE VS FS. LEVOPHED DRIP CURRENTLY 2 MCG/MIN - CONTINUED TO TITRATE TO EFFECT. FAINT PULSES. NON-PITTING EDEMA BUE'S AND BLE'S. WARM, PINK SKIN. HYPOACTIVE BT X4 QUADRANTS. ABD SOFT, NONTENDER. NO N/V. NO BM. ASPIRATION PRECAUTIONS. F/C IN PLACE - PINK, TEA COLORED URINE WITH BLOOD CLOTS. PICC SOY. PIV X1 - SL. CLINIMIX AT 75 ML/HR. WILL CONT TO MONITOR PT AND WILL PROVIDE BEDSIDE REPORT TO ONCOMING NURSE THIS AM.
--- NOTE | 2018-02-11 07:15 | NUR ---
REC'D BEDSIDE REPORT FROM DESIRAE WORRELL. REVIEWED ALL GTTS.
--- NOTE | 2018-02-11 08:38 | NUR ---
DR GATICA IN TO ASSESS PT. DISCUSSED POSSIBLY STARTING MIDODRINE R/T PT NEEDING CONTINUED LOW DOSE LEVOPHED. DISCUSSED WHAT TO USE FOR NUTRITIONAL REPLACEMENT IF CLINIMIX IS STOPPED. DISCUSSED CHANGING BOWEL CARE PROTOCOL.
--- NOTE | 2018-02-11 11:37 | NUR ---
PT UPDATE: DR HORVATH IN TO ASSESS PT. DISCUSSED PT NEED TO BE PLACED ON BIPAP WITH ALL NAPS/SLEEP, R/T SHALLOW BREATHING/WORSENING ABG. PT PLACED ON BIPAP 28/06, WITH FI02-35% AT THIS TIME BY RT DEXTER.
--- NOTE | 2018-02-11 17:44 | NUR ---
SHIFT SUMMAR: PT REMAINS VERY DROWSY T/O THE SHIFT. PT WILL AWAKEN TO VERBAL STIMULI. HOWEVER, DOES NOT STAY AWAKE FOR MORE THAN A COUPLE MINUTES. SPEECH THERAPY AND PT UNABLE TO WORK WITH PT RELATED TO DROWSINESS. PT MEDICATED ONCE EARLY THIS SHIFT FOR RT HIP PAIN, BUT HAS APPEARED COMFORTABLE T/O THE REST OF THE SHIFT. LUNGS REMAIN CLEAR IN THE UPPER LOBES AND DIMINISHED IN THE LOWER LOBES. PT TO WEAR BIPAP WITH ALL SLEEP PERIODS SHE BREATHES VERY SHALLOW AND BLOOD GASES WORSE AFTER NOT WEARING BIPAP THROUGH LAST NOC. PT TOLERATING BIPAP WELL AND 02 SATS MAINTAIN >90% ON 01/18, RATE 14, AND FI02 FO 30%. HR IRREGULAR, ATRIAL FIB WITH CONTROLLED RATE OF 90-LOW 100'S. FISCHER CATH WITH IMPROVED URINE OUTPUT. APPEARANCE OF URINE MUCH IMPROVED, IT IS NOW HAZE, DARK YELLOW.
--- NOTE | 2018-02-11 19:15 | NUR ---
ASSUMING CARE OF PT AT THIS TIME. PT REPORT RECEIVED AT BEDSIDE WITH OFFGOING NURSE, SALINA MERRILL. PT LAYING IN BED, SLEEPING UPON ENTERING THE ROOM. PT ON BIPAP 01/18, FIO2 25%. PT'S DAUGHTER AT BEDSIDE. VS STABLE - SEE VS FS. PT DOES NOT APPEAR TO BE IN DISTRESS AT THIS TIME. WILL REVIEW PLAN OF CARE.
--- NOTE | 2018-02-11 19:30 | NUR ---
ASSESSMENT PT CALM, QUIET, COOPERATIVE, RESPONDS TO VERBAL STIMULI, OPENING EYES TO VERBAL STIMULI, DROWSY, LETHARGIC, QUICKLY FALLS BACK ASLEEP WITH DECREASED STIMULI, A&O EXCEPT TO EXACT TIME/DATE, OTHERWISE TALKS AND ANSWERS QUESTIONS APPROPRIATELY, SOFT SPEECH, SLWO TO RESPONDS. SENSATION INTACT. DENIES N/T. PT CORRAL. WEAKNESS NOTED. PT REQUIRES ASSISTANCE WITH TURNS. S/SX OF PAIN/DISCOMFORT NOTED - MEDICATED WITH TYLENOL PER PHYSICIAN'S ORDER / UTILIZED NONPHARM METHODS. LUNGS CLEAR, LOWER LOBES DIMINIHSED AND FINE CRACKLES. BIPAP 12/5, FI2O 25%. OXY SAT >90% WHILE ON BIPAP. RR 20'S WHILE ON BIPAP. PT PLACED ON 3L NC WITH HUMIDIFIED AIR WHILE COMPLETING ORAL CARE AND ADMINSITERING PO MEDICATIONS. OXY SAT >90% AND RR 20'S WHILE ON 3L NC WITH HUMIDIFED AIR. OCC WEAK, NONPRODUCTIVE COUGH. AFEBRILE. A FLUTTER. HR 100'S. BP STABLE - SEE VS FS. LEVOPHED DRIP 1 MCG/MIN - WILL TITRATE TO EFFECT. FAINT PULSES. COOL PINK SKIN - WARM BLANKETS APPLIED. EDEMA NOTED. HYPOACTIVE BT X4 QUADRANTS. ABD SOFT, NONTENDER. NO N/V. NO BM. PT TOLERATED APPLESAUCE WITH MEDICATIONS. F/C IN PLACE - DARK, YELLOW URINE NOTED. PICC VLADISLAV. D5 NS AT 50 ML/HR. R HIP SURGICAL SITE - DRESSING REMAINS C/I WITH SMALL AMOUNTS OF SEROSANGUINOUS FLUDIS NOTED, NO S/SX OF INFECTION.
[2018-02-12 03:41] LABS: Base Excess Venous 2.5 mmol/L; Bicarbonate Venous 25.2 mmol/L (24.0-30.0); PCO2 Venous 65.8 mmHg (38-42); PO2 Venous 72 mmHg (38-42); pH Blood Venous 7.26 (7.34-7.37)
[2018-02-12 03:42] LABS: BASOPHILS PERCENT AUTO 0 % (0-2); EOSINOPHILS ABSOLUTE AUTO 0.05 K/mm3 (0.00-0.68); EOSINOPHILS PERCENT AUTO 1 % (0-6); Hematocrit 36.9 % (33.0-51.0); Hemoglobin 11.5 g/dL (11.5-16.0); IMMATURE GRAN ABSOLUTE AUTO 0.03 K/mm3 (0.00-0.10); IMMATURE GRAN PERCENT AUTO 0 % (0-1); LYMPHOCYTES PERCENT AUTO 2 % (21-46); MONOCYTES ABSOLUTE AUTO 1.31 K/mm3 (0.16-1.47); MONOCYTES PERCENT AUTO 16 % (4-13); Mean Corpuscular HGB 30.7 pg (26.0-34.0); Mean Corpuscular HGB Conc 31.2 g/dL (31.5-36.5); Mean Corpuscular Volume 98 fL (80-100); Mean Platelet Volume 12.1 fL (9.1-12.4); NEUTROPHILS ABSOLUTE AUTO 6.65 K/mm3 (1.96-9.15); NEUTROPHILS PERCENT AUTO 81 % (41-73); NRBC ABSOLUTE 0.03 K/mm3 (0.00-0.02); NRBC Auto 0.4 /100 WBC (0.0-0.2); Platelet Count 188 K/mm3 (150-400); RDW Standard Deviation 57.1 fL (35.1-46.3); Red Blood Cell Count 3.75 M/mm3 (3.80-5.20); White Blood Cell Count 8.24 K/mm3 (4.00-11.30)
[2018-02-12 04:01] LABS: Alanine Aminotransfer (ALT/SGP 20 U/L (12-78); Albumin, Blood 2.2 g/dL (3.4-5.0); Albumin/Globulin Ratio 0.5 (0.8-1.8); Alk Phos 94 U/L (50-136); Anion Gap 4 mmol/L (6-16); Aspartate Aminotrans (AST/SGOT 28 U/L (12-37); Bilirubin, Total 1.9 mg/dL (0.1-1.0); Blood Urea Nitrogen 90 mg/dL (8-24); CO2, Blood 31 mmol/L (21-32); Calcium, Blood 7.8 mg/dL (8.5-10.1); Chloride, Blood 101 mmol/L (98-108); Creatinine, Blood 2.81 mg/dL (0.40-1.00); Globulin, Blood 4.3 g/dL (2.2-4.0); Glomerular Filtration Rate 17 (60-); Glucose, Blood 97 mg/dL (70-99); Phosphorus, Blood 5.7 mg/dL (2.5-4.9); Potassium, Blood 5.1 mmol/L (3.5-5.5); Prothrombin Time Results 63.8 Sec (9.7-11.5); Sodium, Blood 136 mmol/L (136-145); Total Protein, Blood 6.5 g/dL (6.4-8.2)
[2018-02-12 04:07] LABS: International Normalized Ratio 6.91
--- NOTE | 2018-02-12 04:30 | NUR ---
DR. HORVATH INFORMED DR. HORVATH OF AM LABS. DR. HORVATH ORDERED BIPAP 14/5, FIO2 25%. INFORMED DEANDRE RT OF BIPAP CHANGES. DR. HORVATH ALSO INSTRUCTED TO HOLD WARFARIN THIS AM D/T INR VALUE. INFORMED RUDDY PHARMACIST OF INR VALUE.
--- NOTE | 2018-02-12 05:40 | NUR ---
DR. KAVON JACOBSON CALLED ICU AT THIS TIME. INFORMED DR. JACOBSON OF AM LABS. DR. JACOBSON INCREASED DOSAGE OF MIDODRINE TO 7.5 MG TIDD AND ORDERED 12.5 MG ALBUMIN NOW. WAITING FOR VERIFICATION OF MEDICATION FROM PHARMACY AND WAITING FOR ALBUMIN FROM PHARMACY AT THIS TIME. DR. JACOBSON PLANNING TO COME TO ICU THIS AM.
--- NOTE | 2018-02-12 06:30 | NUR ---
DR. KAVON JACOBSON IN TO SEE PT AT THIS TIME. DR. JACOBSON ORDERED 2MG BUMEX THAT IS TO BE ADMINSITERED AFTER COMPLETION OF ALBUMIN. WAITING FOR ALMBUMIN FROM PHARMACY AT THIS TIME.
--- NOTE | 2018-02-12 06:38 | NUR ---
SHIFT ASSESSMENT NO ACUTE CHANGES NOTED T/O SHIFT. PT SLEPT T/O SHIFT. PT CALM, QUIET, COOPERATIVE, RESPONDS TO VERBAL STIMULI, OPENING EYES TO VERBAL STIMULI, DROWSY, LETHARGIC, QUICKLY FALLS BACK ASLEEP WITH DECREASED STIMULI, A&O EXCEPT TO EXACT TIME/DATE, OTHERWISE TALKS AND ANSWERS QUESTIONS APPROPRIATELY, SOFT SPEECH, SLWO TO RESPOND. PT MORE DIFFICULT TO AROUSE THIS PM. SENSATION INTACT. DENIES N/T. PT CORRAL. WEAKNESS NOTED. PT REQUIRES ASSISTANCE WITH TURNS. S/SX OF RODRIGUEZ/DISCOMFORT NTOED T/O SHIFT - TYLENOL ADMINISTERED PER PHYSICIAN'S ORDER / UTILIZED NONPAHRM METHODS. LUNGS CLEAR. LOWER LOBES DIMINIHSED AND FINE CRACKLES. BIPAP CURRENTLY 14/5, FIO2 25%. OXY SAT 90% AND GREATER WHILE ON BIPPA. PT PLACED ON 3L NC WITH HUMIDIFIED AIR WHILE COMPLETING ORAL CARE AND ADMINSITERING PO MEDICATIONS. RR 14 TO 30'S. OCC WEAK, NONPRODUCTIVE COUGH. AFEBRILE. A FLUTTER. HR 90'S TO 100'S. CONTINUED TO TITRATE LEVOPHED DRIP TO MAINTAIN BP - SEE VS FS. LEVOPHED DRIP 3 MCG/MIN - CONTINUED TO TITRATE TO EFFECT. FAINT PULSES. WARM, PINK SKIN. EDEMA NOTED. HYPOACTIVE BT X4 QUADRANTS. ABD SOFT, NONTENDER. NO N/V. NO BM. PT TOELRATED APPLESAUCE WITH MEDICATIONS. F/C IN PLACE - DARK, YELLOW URINE NOTED. PICC VLADISLAV. D5 NS AT 50 ML/HR. R HIP SURGICAL SITE - DRESSING REMAINS C/I WITH SMALL AMOUNTS OF SEROSANGUINOUS FLUIDS NOTED, NO S/SX OF INFECTION. ALBUMIN INFUSING. WAITING TO ADMINISTER BUMEX UNTIL COMPLETION OF ALBUMIN. WILL CONT TO MONITOR PT AND WILL PROVIDE BEDSIDE REPORT TO ONCOMING NURSE THIS AM.
--- NOTE | 2018-02-12 07:15 | NUR ---
REC'D REPORT FROM DESIRAE WORRELL AND WILL NOW ASSUME CARE OF PT.
--- NOTE | 2018-02-12 08:00 | NUR ---
DR GATICA IN TO ASSESS PT. DISCUSSED NUTRITIONAL STATUS, CLINIMIX WAS D/C'D YESTERDAY AND PT'S LETHERGY IS SUCH THAT PO INTAKE IS MINIMAL.
--- NOTE | 2018-02-12 08:59 | NUR ---
PT/FAMILY UPDATE: PT TAKEN OFF BIPAP TO PROVIDE ORAL CARE. WILL ATTEMPT TO GIVE PO MEDS AND FEED BREAKFAST IF PT IS ABLE TO STAY AWAKE. UPDATED PT'S DAUGHTER ON PT'S STATUS AND NEW ORDERS TO PLACE DOBHOFF FOR TUBE FEEDINGS. PT'S DAUGHTER CONCERNED ABOUT DISCOMFORT TO PT, AND REQUESTED TO CONSULT WITH DR HORVATH RE: OTHER NUTRITIONAL OPTIONS BEFORE PLACING TUBE.
--- NOTE | 2018-02-12 10:00 | NUR ---
DR HORVATH IN TO ASSESS PT. IN LIGHT THAT PT ATE WELL AT BREAKFAST TODAY, WILL CONTINUE TO ENCOURAGE MAGIC CUPS/NEPHRO, EVEN IN BETWEEN MEALS. DR HORVATH TALKED WITH PT/FAMILY ABOUT TRYING TO MANAGE PAIN WITH TYLENOL, PT MAY BE SENSITIVE TO NARCOTICS. PT ATE WELL WITH FULL ASSIST AND DID WELL WORKING WITH PT TODAY AND WAS ABLE TO SIT AT THE SIDE OF THE BED TO DANGLE.
--- NOTE | 2018-02-12 13:15 | NUR ---
PT UPDATE: PT MORE AWAKE IN COMPARISON TO YESTERDAY AND ABLE TO ANSWER QUESTIONS SLOWLY BUT APPROPRIATELY, FOLLOW SIMPLE COMMANDS AND PO INTAKE MUCH IMPROVED WITH FULL MEAL ASSIST. PT'S DAUGHTER IN ROOM AT BEDSIDE AND VERY HELPFUL IN PT'S CARE. PT ABLE TO CONSUME 40-50% OF BREAKFAST/LUNCH. PT REMAINS OOB TO CHAIR WITH CEILING LIFT. PT TOLERATING BEING OOB WELL. PT AWAITING DOPPLER OF LT UE R/T CONTINUED SWELLING. PT REMAINS ON LEVOPHED @ 3MCG/MIN DESPITE INCREASING MIDODRINE DOSAGE.
--- NOTE | 2018-02-12 14:00 | NUR ---
AUTOMATIC GRINDER OPERATOR HERE TO DO VENOUS DUPLEX OF LT UA.
--- NOTE | 2018-02-12 15:18 | NUR ---
CALLED DR HORVATH RE: LT UE VENOUS DUPLEX RESULTS. ADVISED TO APPLY WARM COMPRESSES TO LT UE.
--- NOTE | 2018-02-12 18:45 | NUR ---
SHIFT SUMMARY: PT WITH SOME IMPROVEMENTS THIS SHIFT. PT HAS BEEN MUCH MORE ALERT, ORIENTED TO PERSON, SELF, FAMILY, PLACE, MONTH/YEAR. PT ABLE TO FOLLOW SIMPLE COMMANDS THAT ARE WITHIN HER PHYSICAL CAPIBILITIES. PT ALERT ENOUGH TO WORK WITH PHYSICAL THERAPY AND DANGLE AT THE SIDE OF THE BED FOR A SHORT TIME. PT OOB FOR THE LAST PART OF THE SHIFT AND TOLERATED WELL. LUNGS REMAIN CLEAR BUT DIMINISHED IN THE BILATERAL BASES. 02 SATS >90% ON 3L 02 VIA N/C. PT HAS OCCASIONAL, WET, NON-PRODUCTIVE COUGH. HR SLIGHTLY IRREGULAR, ATRIAL FLUTTER THIS EVENING. VENOUS DUPLEX OF LT UE DONE, AND HEAT PACKS BEING APPLIED TO THE LT UE PER DR HORVATH. LEVOPHED CONTINUED AT 3MCG/MIN T/O SHIFT. UNABLE TO WEAN LEVOPHED DOWN DESPITE INCREASED MIDODRINE DOSE. D5NS @ 50ML/HR. APPETITE MUCH IMPROVED WITH IMPROVED PO INTAKE FOR BREAKFAST AND LUNCH, HOWEVER, PT REFUSED TO EAT ANY OF HER DINNER, EVEN WITH SEVERAL ATTEMPTS FROM FAMILY TRYING TO ASSIST WITH DINING. FISCHER CATHETER WITH CASTS AND SOME BLOOD TINGED CASTING SEEN, HOWEVER, MUCH CLEARER, AND OUTPUT IMPROVED WITH 500ML OUT.
--- NOTE | 2018-02-12 19:15 | NUR ---
REPORTED OFF TO DESIRAE WORRELL WHOM WILL ASSUME CARE OF PT.
--- NOTE | 2018-02-12 19:15 | NUR ---
ASSUMING OF PT AT THIS TIME. PT REPORT RECEIVED AT BEDSIDE WITH OFFGOING NURSE, SALINA MERRILL. PT LAYING IN BED, SLEEPING UPON ENTERING THE ROOM. PT'S DAUGHTER AT BEDSIDE. VS STABLE - SEE VS FS. PT DOES NOT APPEAR TO BE IN DISTRESS AT THIS TIME. WILL REVIEW PLAN OF CARE.
--- NOTE | 2018-02-12 19:30 | NUR ---
ASSESSMENT PT CALM, QUIET, COOPERATIVE, RESPONDS TO VERBAL STIMULI, OPENING EYES TO VERBAL STIMULI, DROWSY, LETHARGIC, QUICKLY FALLS BACK ASLEEP WITH DECREASED STIMULI, A&O EXCEPT TO TIME/DATE, OTHERWISE TALKS AND ANSWERS QUESTIONS APPROPRIAZTLEY, SOFT SPEECH, SLOW TO RESPOND. LESS DROWSY AND LETHARGIC THIS PM. SENSATION INTACT. DENIES N/T. PT MAR. WEAKNESS NOTED. PT REQUIRES ASSISTANCE WITH TURNS. S/SX OF PAIN/DISCOMFORT NOTED - MEDICATED WITH FENT PER PHYSICIAN'S ORDER / UTILIZED NONPHARM METHODS. LUNGS CLEAR, DIMINISHED T/O. PT ON 3L NC WITH HUMIDIFED AIR. RR 14. OXY SAT >95%. BIPAP ON STANDBY: 01/18, FI02 25%. USE BIPAP WHILE SLEEPING. OCC WEAK, NONPRODUCTIVE COUGH. AFEBRILE. A FLUTTER. HR 100'S. BP STABLE - SEE VS FS. LEVOPHED DRIP 3 MCG/MIN - WILL TITRATE TO EFFECT. FAINT PULSES. WARM, PINK SKIN. EDEMA NOTED. WARM BLANKETS APPLIED TO LUE. HYPOACTIVE BT X4 QUADRANTS. ABD SOFT, NONTENDER. N/V. PT VOMITING THIN YELLOW SECRETIONS. ZOFRAN ADMINISTERED. F/C IN PLACE - DARK YELLOW URINE NOTED. PICC VLADISLAV. D5 NS AT 50 ML/HR. R HIP SURGICAL SITE - DRESSING SATURATED, DRESSING CHANGED, CURRENT DRESSING C/D/I, NO S/SX OF INFECTION NOTED.
--- NOTE | 2018-02-12 19:39 | NUR ---
DR. HORVATH INFORMED DR. HORVATH OF N/V. PT VOMING MODERATE AMOUNTS OF THIN YELLOW SECRETIONS. ZOFRAN ADMINISTERED. NO VOMITING AFTER ADMINISTERING ZOFRAN, BUT PT REMAINS NASEOUS. DR. HORVATH D/C PREVIOUS PROTONIX ORDER AND ORDER PROTONIX 40 MG BID. PT HAS HX OF REFLUX AND TAKES PRILOSEC AT HOME. WAITING FOR VERIFICATION OF MEDICATION FROM PHARMACY AT THIS TIME.
--- NOTE | 2018-02-12 22:30 | NUR ---
DR. HORVATH PT'S HR 120'S TO 130'S. LEVOPHED 3 MCG/MIN. AFIB. INFORMED DR. HORVATH OF VS, LEVOPHED DRIP, AND AFIB. DR. HORVATH ORDERED AMDIORAONE BOLUS 150 MG AND AMIODRAONE DRIP. DR. HORVATH INSTRUCTED TO INFUSE THE AMIODARONE 1 MG FOR FIRST SIX HOURS AND TITRATE THE AMDIODARONE TO 0.5 MG FOR THE FOLLOWING 18 HOURS.
[2018-02-13 03:44] LABS: Base Excess Venous 3.1 mmol/L; Bicarbonate Venous 25.9 mmol/L (24.0-30.0); PCO2 Venous 53.3 mmHg (38-42); PO2 Venous 43.1 mmHg (38-42); pH Blood Venous 7.34 (7.34-7.37)
[2018-02-13 03:48] LABS: BASOPHILS ABSOLUTE AUTO 0.01 K/mm3 (0.00-0.23); BASOPHILS PERCENT AUTO 0 % (0-2); EOSINOPHILS ABSOLUTE AUTO 0.04 K/mm3 (0.00-0.68); EOSINOPHILS PERCENT AUTO 0 % (0-6); Hematocrit 34.5 % (33.0-51.0); Hemoglobin 11.1 g/dL (11.5-16.0); IMMATURE GRAN ABSOLUTE AUTO 0.03 K/mm3 (0.00-0.10); IMMATURE GRAN PERCENT AUTO 0 % (0-1); LYMPHOCYTES ABSOLUTE AUTO 0.09 K/mm3 (0.84-5.20); LYMPHOCYTES PERCENT AUTO 1 % (21-46); MONOCYTES ABSOLUTE AUTO 1.57 K/mm3 (0.16-1.47); MONOCYTES PERCENT AUTO 14 % (4-13); Mean Corpuscular HGB 31.5 pg (26.0-34.0); Mean Corpuscular HGB Conc 32.2 g/dL (31.5-36.5); Mean Corpuscular Volume 98 fL (80-100); NEUTROPHILS PERCENT AUTO 84 % (41-73); NRBC ABSOLUTE 0.03 K/mm3 (0.00-0.02); NRBC Auto 0.3 /100 WBC (0.0-0.2); Platelet Count 189 K/mm3 (150-400); RDW Standard Deviation 55.8 fL (35.1-46.3); Red Blood Cell Count 3.52 M/mm3 (3.80-5.20); White Blood Cell Count 11.14 K/mm3 (4.00-11.30)
[2018-02-13 04:11] LABS: International Normalized Ratio 6.02
[2018-02-13 04:14] LABS: Alanine Aminotransfer (ALT/SGP 22 U/L (12-78); Albumin, Blood 2.3 g/dL (3.4-5.0); Albumin/Globulin Ratio 0.6 (0.8-1.8); Anion Gap 5 mmol/L (6-16); Aspartate Aminotrans (AST/SGOT 41 U/L (12-37); Bilirubin, Total 2.3 mg/dL (0.1-1.0); Blood Urea Nitrogen 88 mg/dL (8-24); Bun/Creatinine Ratio 33.8 (12.0-20.0); CO2, Blood 28 mmol/L (21-32); Calcium, Blood 7.9 mg/dL (8.5-10.1); Chloride, Blood 102 mmol/L (98-108); Glomerular Filtration Rate 19 (60-); Glucose, Blood 115 mg/dL (70-99); Magnesium, Blood 1.8 mg/dL (1.6-2.4); Phosphorus, Blood 4.4 mg/dL (2.5-4.9); Potassium, Blood 5.3 mmol/L (3.5-5.5); Sodium, Blood 135 mmol/L (136-145); Total Protein, Blood 6.3 g/dL (6.4-8.2); Triglycerides 79 mg/dL (30-160)
[2018-02-13 04:15] LABS: Alk Phos 123 U/L (50-136)
--- NOTE | 2018-02-13 05:03 | NUR ---
SHIFT ASSESSMENT PT SLEPT T/O SHIFT. PT CALM, QUIET, COOPERATIVE, RESPONDS TO VERBAL STIMULI, OPENING EYES TO VERBAL STIMULI, DROWSY, LETHARGIC, QUICKLY FALLS BACK ASLEEP WITH DECREASED STIMULI, A&O EXCEPT TO TIME/DATE, OTHERWISE TALKS AND ANSWERS QUESTIONS APPROPRIATELY, SOFT SPEECH, SLOW TO RESOPND. LESS DROWSY AND LETHARGIC THIS PM. PT TALKED MORE THIS PM. SENSATION INTACT. DENIES N/T. PT CORRAL. WEANESS NOTED. PT REQUIRES ASSISTANCE WITH TURNS. OCC S/SX OF PAIN/DISCOMFORT NOTED T/O SHIFT - MEDICATED WITH FENT PER PHYSICIAN'S ORDER / UTILIZED NONPHARM METHODS. LUNGS CLEAR, DIMINIHSED T/O WHILE ON NC, AND DIMINISHED LOWER LOBES WHILE ON BIPAP. PT ON 3L NC WITH HUMIDIFIED AIR WHILE AWAKE. OXY SAT REMAINED 90% AND GREATER WHILE ON 3L NC. PT ON BIPAP WHILE SLEEPING. BIPAP 14/5, FIO2 25%. OXY SAT REMAINED 90% AND GREATER WHILE ON BIPAP 14/5, FIO2 25%. OCC WEAK NONPRODUCTIVE COUGH. AFEBRILE. ATRIAL FLUTTER TO AFIB T/O SHIFT. HR 90'S TO 130'S. AMDIODARONE BOLUS ADMINISTERED FOR AFIB WITH RVR. AMIODARONE DRIP 1 MG/MIN FOR 6 HR. WILL TITRATE AMIODARONE DRIP TO 0.5 MG/MIN FOR REMAINING 18 HOURS. HR CURRENTLY 90'S. CONTINUED TO TITRATE LEVOPHED TO MAINTAIN BP. LEVOPHED DRIP 1 MCG/MIN - CONTINUED TO TITRATE TO EFFECT. FAINT PULSES. WARM, PINK SKIN. EDEMA NOTED. WARM BLANKETS APPLIED TO LUE. HYPOACTIVE BT X4 QUADRANTS. ABD SOFT, NONTENDER. PT VOMITED THIN YELLOW SECRETIONS AT BEGINNING OF THE SHIFT. NO VOMITING NOTED AFTER ADMINSITERING ZOFRAN. PT C/O NAUSEA THIS AM, NO VOMITING. PT STATES NAUSEA RESOLVED AFTER ADMINISTERING ZOFRAN. NO PO MEDICATIONS ADMINSITERED D/T N/V. F/C IN PLACE - DARK, YELLOW URINE NOTED. PICC VLADISLAV. D5 NS AT 50 ML/HR. R HIP SURGICAL SITE - SMALL AMOUNTS OF CLEAR SECRETIONS NOTED, OTHERWISE DRESSING C/D/I, NO S/SX OF INFECTION NOTED. WILL CONT TO MONITOR PT AND WILL PROVIDE BEDSIDE REPORT TO ONCOMING NURSE THIS AM.
--- NOTE | 2018-02-13 07:00 | NUR ---
DR. KAVON JACOBSON IN TO SEE PT AT THIS TIME. DR. JACOBSON ORDERED ALBUMIN 12.5 MG AND BUMEX [address] JACOBSON INSTRUCTED TO ADMINISTER BUMEX AFTER COMPLETION OF ALBUMIN. WAITING FOR VERIFICATION OF MEDICATIONS AT THIS TIME.
--- NOTE | 2018-02-13 07:45 | NUR ---
STOPPED LEVOPHED DRIP AT THIS TIME.
--- NOTE | 2018-02-13 09:33 | NUR ---
0715-ASSUMED CARE OF PT. PT IS ASLEEP AT THIS TIME. WILL ALLOW PT TO SLEEP IN AT THIS TIME. 0850-AWAKENED PT FOR BREAKFAST AND MEDICATIONS. PT IS ALERT, ORIENTED TO SELF, FAMILY, PLACE, DISORIENTED TO TIME. PT WAS ABLE TO SWALLOW MEDS WITH APPLESAUCE WITHOUT ANY DIFFICULTY ALTHOUGH SHE STILL COMPLAINTS OF SORE THROAT. 0915-ASSISTED PT WITH MEALS. PT'S DAUGHTER AT BEDSIDE. 0932-DR. HERNANDEZ AT BEDSIDE. UPDATED HIM OF PT'S STATUS.
--- NOTE | 2018-02-13 16:31 | NUR ---
DR. GOMEZ WAS NOTIFIED REGARDING PT'S HR/RHYTHM & BLOOD PRESSURE. NO ORDERS RECEIVED.
--- NOTE | 2018-02-13 17:30 | NUR ---
CALLED DR. JACOBSON RE: IV FLUID CLARIFICATION ONCE TPN STARTED. UPDATED HIM OF PT'S STATUS. ORDERS RECEIVED.
[2018-02-13 18:19] LABS: Hematocrit 31.7 % (33.0-51.0); Hemoglobin 10.1 g/dL (11.5-16.0)
--- NOTE | 2018-02-13 18:40 | NUR ---
SHIFT SUMMARY: PT IS ALERT AND ORIENTED. PT HAS BEEN SLEEPING ON AND OFF TODAY. PT WAS UP IN THE CHAIR FOR 5 HOURS. PT WAS ABLE TO EAT 30-40% OF HER LUNCH, 50% OF HER DINNER. PT NEEDED TO BE PRODDED WITH ACTIVITY AND EATING. PT HAS MAINTAINED HER SBP >90 MOST OF THE DAY. LEVOPHED WAS TURNED OFF AT 0745 THIS MORNING. STILL ON AMIODARONE DRIP @ 0.5 MG/MIN THEN DC ONCE WHOLE TREATMENT IS DONE. PT IS ON TPN AT 75ML/HR.
[2018-02-13 19:23] LABS: Stool Occult Blood Guaiac 1 Pos (Neg)
--- NOTE | 2018-02-13 19:54 | NUR ---
[place] of Care: Patient drowsy but wake visiting with family at bedside. Slow to respond, oriented to self, place, family, confused to time/date. Denies pain except for mild discomfort with repositioning. Denies dyspnea or SOB, O2- 99% on 3L/NC, plan to place patient on BiPAP mask when sleeping. Amiodarone gtt at 0.5mg/min, will D/C when volume in bag is completed. TPN infusing at 75ml/hr, rate confirmed with EMAR. PICC line patent and intact, infusing without difficulty. Hazel cath patent and intact, draining light yellow clear urine. Gauze/tape dressing to rt hip, minimal serous drainage noted to gauze, will continue to monitor and change dressing as indicated. Maroon colored BM reported from day shift RN, but no stool/BM noted at this time, HR and BP stable, will continue to monitor for stool, s/s of bleeding. Will continue to monitor for pain, comfort, safety.
[2018-02-14 03:24] LABS: BASOPHILS ABSOLUTE AUTO 0.01 K/mm3 (0.00-0.23); BASOPHILS PERCENT AUTO 0 % (0-2); EOSINOPHILS PERCENT AUTO 3 % (0-6); Hematocrit 30.3 % (33.0-51.0); Hemoglobin 9.7 g/dL (11.5-16.0); IMMATURE GRAN ABSOLUTE AUTO 0.02 K/mm3 (0.00-0.10); IMMATURE GRAN PERCENT AUTO 0 % (0-1); LYMPHOCYTES PERCENT AUTO 3 % (21-46); MONOCYTES ABSOLUTE AUTO 1.01 K/mm3 (0.16-1.47); MONOCYTES PERCENT AUTO 13 % (4-13); Mean Corpuscular HGB 31.5 pg (26.0-34.0); Mean Corpuscular Volume 98 fL (80-100); Mean Platelet Volume 11.7 fL (9.1-12.4); NEUTROPHILS ABSOLUTE AUTO 6.54 K/mm3 (1.96-9.15); NEUTROPHILS PERCENT AUTO 82 % (41-73); Platelet Count 160 K/mm3 (150-400); RDW Coefficient Variation 16.1 % (11.7-14.2); Red Blood Cell Count 3.08 M/mm3 (3.80-5.20); White Blood Cell Count 7.98 K/mm3 (4.00-11.30)
[2018-02-14 03:35] LABS: International Normalized Ratio 3.26; Prothrombin Time Results 31.4 Sec (9.7-11.5)
[2018-02-14 03:40] LABS: Albumin, Blood 2.5 g/dL (3.4-5.0); Anion Gap 6 mmol/L (6-16); Blood Urea Nitrogen 90 mg/dL (8-24); Bun/Creatinine Ratio 37.5 (12.0-20.0); CO2, Blood 29 mmol/L (21-32); Chloride, Blood 104 mmol/L (98-108); Glomerular Filtration Rate 21 (60-); Glucose, Blood 131 mg/dL (70-99); Magnesium, Blood 1.7 mg/dL (1.6-2.4); Phosphorus, Blood 3.5 mg/dL (2.5-4.9); Potassium, Blood 4.7 mmol/L (3.5-5.5); Sodium, Blood 139 mmol/L (136-145)
--- NOTE | 2018-02-14 05:30 | NUR ---
Shift Summary: Patient slept well throughout shift, easily roused via verbal stimuli. BiPAP mask on throughout most of shift while sleeping, also tolerating 1-2 h breaks from mask, with 3L/NC. No BM's/bloody stool, or s/s of bleeding this shift, BP and HR stable. Hazel cath remains patent and intact, draining clear yellow urine. PICC line remains patent and intact. Moderate amount of serous drainage noted to rt hip dressing, plan to change with 0600hr repositioning. Pt denies pain, but showed facial grimace late in shift, accepted prn tylenol, now sleeping. Will continue to monitor until report to day shift RN.
--- NOTE | 2018-02-14 07:40 | NUR ---
START OF SHIFT NOTE: PATIENT IS RESTING WITH EYES CLOSED, OPENS EYES TO SPEECH, FOLLOWS COMMANDS, ALERT AND ORIENTED TO SELF AND PLACE, AFEBRILE, LS CLEAR BUT DIMINISHED, HR 100S, ON 3L NC, O2 SATS IN MID 90S, REPOSITIONED FOR COMFORT AND DRESSING ON R HIP CHANGED, FLORIN INTACT, SKIN DRY AND NO SIGNS OF INFECTION, NO REDNESS OR SWELLING NOTED, PATIENT DENIES PAIN OR SOB, REPORTS NO CHEST PAIN OR DISCOMFORT, TPN INFUSING VIA VLADISLAV PICC LINE, CALL LIGHT IN REACH, WILL CONTINUE TO MONITOR.
--- NOTE | 2018-02-14 11:16 | NUR ---
PATIENT UP TO CHAIR VIA CEILING LIFT AND 2 ASSIST, PATIENT TOLERATED FAIR, POSITIONED FOR COMFORT, PATIENT CONTINUES TO HAVE NO APPETITE, DAUGHTER AT BEDSIDE, CALL LIGHT IN REACH, CONTINUE TO MONITOR.
--- NOTE | 2018-02-14 13:50 | NUR ---
PATIENT RECEIVED 10 MG HYDRALAZINE FOR ELEVATED SBPs IN 170s, WILL CONTINUE TO MONITOR.
--- NOTE | 2018-02-14 14:44 | NUR ---
WHILE PATIENT WAS MOVED BACK TO BED FROM CHAIR, SHE C/O ABDOMINAL PAIN, DAUGHTER IN ROOM STATED "SHE DOES VERY WELL WITH TYLENOL", PATIENT RECEIVED 650 MG TYLENOL PO, MEDICATION WAS GIVEN WITH APPLESAUCE AND PATIENT SWALLOWED WITHOUT PROBLEMS, CALL LIGHT IN REACH, WILL CONTINUE TO MONITOR.
--- NOTE | 2018-02-14 15:36 | NUR ---
CALLED DR. GOMEZ ABOUT PATIENT'S HR, SBP, AND C/O PAIN IN ABDOMEN, NO NEW ORDERS RECEIVED.
--- NOTE | 2018-02-14 17:55 | NUR ---
SHIFT SUMMARY NOTE: PATIENT'S DAUGHTER AT BEDSIDE FEEDING DINNER TO PATIENT, NEEDS ASSISTANCE AND ENCOURAGEMENT TO EAT, TPN INFUSING AT 75 CC/HR, PATIENT TOLERATING WELL, A+O TO SELF AND PLACE, LS CLEAR BUT DIMINISHED IN BASES, CONTINUOUS TO BE IN A-FLUTTER WITH HR IN 110s, SBP IN 170s AT TIMES, DR. GOMEZ AWARE, DID NOT WRITE NEW ORDERS, PATIENT WAS UP IN CHAIR FOR 3.5 HOURS AND TOLERATED WELL, FISCHER CATHETER IN PLACE, PATIENT HAD BMs x 3, TWO OF THEM LOOSE AND WATERY, ONE MEDIUM FORMED BROWN BM, NO SIGNS OF BLEEDING NOTED, URINE OUTPUT HAS INCREASED, 950 CC OUT THIS SHIFT, PATIENT RECEIVED TYLENOL 650 MG PO AND FENTANYL 50 MCG IV ONCE FOR 9/10 PAIN IN ABDOMEN AND RIGHT HIP, PAIN DECREASED, PAIN MEDS EFFECTIVE, PATIENT ALSO RECEIVED HYDRALAZINE 10 MG TWICE FOR SBPs IN 170s, DR. GOMEZ AWARE, DAUGHTERS AT BEDSIDE THROUGHOUT DAY, PATIENT INCREASINGLY MORE ACTIVE, AND ALERT TODAY, INCREASE IN INTERACTION WITH STAFF AND FAMILY, CALL LIGHT IN REACH, WILL CONTINUE TO MONITOR AND GIVE REPORT TO ONCOMING PEDIGREE TRACER.
--- NOTE | 2018-02-14 19:35 | NUR ---
THIS RN DISCOVERED THAT SHE GAVE THE WRONG DOSE OF FENTANYL, ORDER WAS WRITTEN O.25 ML OF 50 MCG, AND THIS RN GAVE 50 MCG AT 1452 AND 50 MCG [id number], THE CORRECT DOSE WAS 12.5 MCG PATIENT WAS RESPONSIVE AT ALL TIMES AND VITAL SIGNS WERE STABLE, PATIENT REPORTED GOOD PAIN CONTROL, IRIS WAS DONE AND DR. OLIVEIRA WAS NOTIFIED OF THE INCIDENTAT 19:35.
--- NOTE | 2018-02-14 20:16 | NUR ---
ASSUMED CARE OF PT AT 1900. REPORT RECEIVED AT BEDSIDE. PT PRESENTS IN BED. ALERT AND ORIENTED. PLEASANT AND COOPERATIVE WITH CARE AND ASSESSMENT. PT'S DAUGHTER AT BEDSIDE. VITAL SIGNS DONE WHICH REVEALS MODERATE HYPERTENSION AND TACHYCARDIA - ATRIAL FLUTTER. PT HAS JUST COMPLETED NEBULIZER TREATMENT. WILL MONITOR RATE AND BLOOD PRESSURE TO SEE IF THIS SELF CORRECTS. DOES GET BETA ROSA THIS EVENING. WILL MEDICATE WITH PRN ANTIHYPERTENSIVES NEEDED. WILL REVIEW CHART AND PLAN OF CARE FOR THIS PT.
--- NOTE | 2018-02-14 23:23 | NUR ---
PT REMAINS ON 3 L/M O2 PER NASAL CANNULA. TOLERATING THIS WELL. HAVE DISCUSSED WITH RESPIRATORY THERAPY ABOUT PT WEARING BIPAP. WILL USE IF PT'S RESPIRATORY NEEDS INCREASE. PT TOLERATING Q 2 HOUR TURNS IN BED. USES CALL LIGHT APPROPRIATELY AND REQUESTS WATER. PROVIDED NECTAR THICK WATER. PT STATES SHE WOULD RATHER HAVE REGULAR CONSISTENCY WATER. EXPLAINED TO PT THAT SWALLOW EVALUATION RECOMMEDED NECTAR THICK. PT ABLE TO TAKE PO MEDS WITH APPLESAUCE.
[2018-02-15 04:08] LABS: BASOPHILS ABSOLUTE AUTO 0.01 K/mm3 (0.00-0.23); BASOPHILS PERCENT AUTO 0 % (0-2); EOSINOPHILS ABSOLUTE AUTO 0.11 K/mm3 (0.00-0.68); EOSINOPHILS PERCENT AUTO 1 % (0-6); Hemoglobin 10.5 g/dL (11.5-16.0); IMMATURE GRAN ABSOLUTE AUTO 0.03 K/mm3 (0.00-0.10); IMMATURE GRAN PERCENT AUTO 0 % (0-1); LYMPHOCYTES ABSOLUTE AUTO 0.19 K/mm3 (0.84-5.20); LYMPHOCYTES PERCENT AUTO 2 % (21-46); MONOCYTES ABSOLUTE AUTO 1.18 K/mm3 (0.16-1.47); MONOCYTES PERCENT AUTO 14 % (4-13); Mean Corpuscular HGB 31.1 pg (26.0-34.0); Mean Corpuscular HGB Conc 31.8 g/dL (31.5-36.5); Mean Corpuscular Volume 98 fL (80-100); Mean Platelet Volume 11.5 fL (9.1-12.4); NEUTROPHILS ABSOLUTE AUTO 7.14 K/mm3 (1.96-9.15); NEUTROPHILS PERCENT AUTO 83 % (41-73); Platelet Count 186 K/mm3 (150-400); RDW Coefficient Variation 16.1 % (11.7-14.2); RDW Standard Deviation 56.5 fL (35.1-46.3); Red Blood Cell Count 3.38 M/mm3 (3.80-5.20); White Blood Cell Count 8.66 K/mm3 (4.00-11.30)
[2018-02-15 04:21] LABS: International Normalized Ratio 1.73; Prothrombin Time Results 17.3 Sec (9.7-11.5)
[2018-02-15 04:25] LABS: Albumin, Blood 2.4 g/dL (3.4-5.0); Anion Gap 3 mmol/L (6-16); Blood Urea Nitrogen 88 mg/dL (8-24); Bun/Creatinine Ratio 43.6 (12.0-20.0); CO2, Blood 32 mmol/L (21-32); Calcium, Blood 8.2 mg/dL (8.5-10.1); Chloride, Blood 106 mmol/L (98-108); Creatinine, Blood 2.02 mg/dL (0.40-1.00); Glomerular Filtration Rate 25 (60-); Glucose, Blood 119 mg/dL (70-99); Magnesium, Blood 1.4 mg/dL (1.6-2.4); Phosphorus, Blood 2.4 mg/dL (2.5-4.9); Potassium, Blood 4.4 mmol/L (3.5-5.5); Sodium, Blood 141 mmol/L (136-145)
[2018-02-15 04:30] LABS: Percent Saturation 22.7 % (15.0-50.0)
--- NOTE | 2018-02-15 06:37 | NUR ---
PT HAS BEEN ABLE TO REST THIS NIGHT. DID WEAR O2 AT 3 L/M THROUGHOUT THE NIGHT. MAINTAINS SATURATIONS >93 PERCENT. NO COMPLAINTS OF DYSPNEA. HAS HAD ONE SMALL INCONTINENT STOOL WITHOUT FALLON BLOOD. MEDICATED ONCE WITH 12.5 MCG FENTANYL FOR COMPLAINTS OF ABDOMINAL AND RIGHT HIP PAIN. PT STATES THAT THIS IS AFFECTIVE IN RELIEVING PAIN. DRESSING TO RIGHT HIP CDI. GOOD DISTAL CMS CHECKS NOTED. HAS TOLERATED Q [address] BED[address] JACOBSON HAS BEEN IN TO SEE PT THIS AM. ORDERS RECEIVED. WILL CONTINUE TO MONITOR PT, AND WILL REPORT OFF TO ONCOMING RN.
--- NOTE | 2018-02-15 08:20 | NUR ---
Received report and assumed care of patient. This morning she has c/o a sore throat and abdominal pain t/o. She continues to use 3 LPM humidified O2 via NC, O2 sat are 97% and RR 18. TPN is running at 75 ml/hour at this time. Pt has a grimace and reports 8/10 pain that is in her abdomen and hip, when offered pain medication, she refused. Will continue to monitor closely and offer warm fluids and repositioning Q2 hours or as needed.
--- NOTE | 2018-02-15 10:10 | NUR ---
PT O2 LEVELS ABOUT 99%, DECREASED O2 TO 2 LPM HUMIDIFIED. PT TOLERATING WELL, O2 SAT ABOVE 97%.
--- NOTE | 2018-02-15 14:06 | NUR ---
Dr. Harrington in to see patient. Plan to continue TPN. CBG checks will be reassessed for need after 48 hours of TPN use.
--- NOTE | 2018-02-15 18:45 | NUR ---
Shift Summary: Patient has rested throughout the day, she stated multiple times throughout the day that she was feeling tired. She reports pain 8/10; however, when offered pain medications, she refuses. O2 sat is stable >92% on 2 LPM via NC. PT worked with patient today, and patient daughters at bedside encouraging continued movement as well as assisting and encouraging meals. HIDA scan planned for 0715 02/[address] He orders. TPN running at 75ml/hr. Will continue to monitor and give report to NOC RN>
--- NOTE | 2018-02-15 20:40 | NUR ---
ASSUMED CARE OF PT AT 1900. REPORT PARTIALLY RECEIVED AT BEDSIDE. PT'S DAUGHTER AT BEDSIDE. PT INITIALLY IN ICU 14 AND HAS BEEN SUBSEQUENTLY BEEN MOVED TO ROOM ICU 3 SECONDARY TO PATIENT CONSOLIDATION. PT TOLERATES THE TRANSFER WELL. DAUGHTER HAS GONE HOME FOR THE NIGHT. WILL REVIEW CHART AND PLAN OF CARE FOR THIS PT.
--- NOTE | 2018-02-15 22:36 | NUR ---
PT AWAKENS AND IS ABLE TO TAKE HER PO MEDICATIONS THIS EVENING IN ICE CREAM FOR THE FAT REQUIRED FOR TOMORROW'S HIDA SCAN. PT DENIES COMPLAINTS AT THIS TIME.
--- NOTE | 2018-02-16 01:44 | NUR ---
PT CONTINUES TO BE ABLE TO REST THIS NIGHT. NO COMPLAINTS OF ABDOMINAL PAIN. CONTINUES ON TPN AT 75 PER HOUR. WILL CONTINUE TO MONITOR PT.
[2018-02-16 04:19] LABS: Hemoglobin 10.5 g/dL (11.5-16.0)
[2018-02-16 04:32] LABS: International Normalized Ratio 1.53; Prothrombin Time Results 15.4 Sec (9.7-11.5)
[2018-02-16 04:37] LABS: Alanine Aminotransfer (ALT/SGP 28 U/L (12-78); Albumin, Blood 2.3 g/dL (3.4-5.0); Albumin/Globulin Ratio 0.6 (0.8-1.8); Alk Phos 162 U/L (50-136); Amylase, Blood 334 U/L (25-115); Anion Gap 5 mmol/L (6-16); Aspartate Aminotrans (AST/SGOT 40 U/L (12-37); Bilirubin, Direct 1.2 mg/dL (0.0-0.3); Bilirubin, Indirect 0.5 mg/dL (0.1-0.7); Bilirubin, Total 1.7 mg/dL (0.1-1.0); Blood Urea Nitrogen 89 mg/dL (8-24); Bun/Creatinine Ratio 55.6 (12.0-20.0); CO2, Blood 31 mmol/L (21-32); Calcium, Blood 8.5 mg/dL (8.5-10.1); Chloride, Blood 106 mmol/L (98-108); Globulin, Blood 3.9 g/dL (2.2-4.0); Glomerular Filtration Rate 33 (60-); Glucose, Blood 142 mg/dL (70-99); Magnesium, Blood 1.3 mg/dL (1.6-2.4); Phosphorus, Blood 2.3 mg/dL (2.5-4.9); Potassium, Blood 4.2 mmol/L (3.5-5.5); Sodium, Blood 142 mmol/L (136-145); Total Protein, Blood 6.2 g/dL (6.4-8.2)
--- NOTE | 2018-02-16 06:34 | NUR ---
PT HAS HAD RESTFUL NIGHT. IS TOLERANT OF Q 2 HOUR TURNS. TAKES NECTAR THICKENED WATER. CONTINUES ON 1 LITER PER MINUTE OXYGEN THERAPY PER NASAL CANNULA. HAS MAINTAINED > 90 PERCENT SATURATIONS. OF NOTE: PT USES 3 LITERS OXYGEN PER NASAL CANNULA AT HOME. PT HAS HAD ONLY MILD DISCOMFORT IN ABDOMEN. IS TO HAVE HIDA SCAN THIS AM. RECOMMEDATIONS FOR HIDA SCAN IS NO NARCOTICS IN AM OF TEST. DRESSING TO RIGHT HIP CDI. WILL CONTINUE TO MONITOR PT, AND WILL REPORT OFF TO ONCOMING RN.
--- NOTE | 2018-02-16 07:20 | NUR ---
RECEIVED REPORT ON PATIENT AND ASSUMED CARE. PT IS DOING WELL THIS MORNING, SITTING UP IN BED SHE IS RELAXED AND COMFORTABLE. 1 LPM VIA NC WITH O2 SAT >95%. TPN CONTINUES TO RUN AT 75 ML/HOUR. CALLED DR. GOMEZ TO UPDATE ON STATUS OF PATIENT, HE GAVE VERBAL ORDER TO CHANGE TO PCU STATUS. PT SCHEDULED FOR HIDA SCAN THIS MORNING, GEAR STRAIGHTENER IN ROOM TO TRANSFER PATIENT TO SCAN.
--- NOTE | 2018-02-16 10:01 | NUR ---
PT BACK FROM IMAGING AT THIS TIME. VITALS STABLE. PT SATTING WELL ON 1L/MIN NC. PT REFUSING BREAKFAST AT THIS TIME. ABLE TO TAKE A FEW DRINKS OF NEPRO SUPPLEMENT. TPN INFUSING AT 75ML/HR. PT IS PCU STATUS. WILL CONTINUE TO MONITOR.
--- NOTE | 2018-02-16 12:08 | NUR ---
DR GOMEZ SAW PATIENT THIS MORNING AND POC TO INCREASE METOPROLOL AND CONTINUE TPN TO BE MANAGED BY HOSPITALIST SHE ADVANCES DIET. PT AND SPEECH THERAPY IN TO WORK WITH PATIENT. TODAY SHE WAS STILL UNABLE TO DRINK CLEAR LIQUIDS, SO SHE WILL CONTINUE ON NECTAR THICK FLUIDS. PT STATED THAT SHE WOULD BENEFIT FROM OT WELL. PT HAS ROOM TO BE TRANSFERRED TO PCU 5, WILL CALL REPORT TO RN.
--- NOTE | 2018-02-16 18:33 | NUR ---
SHIFT SUMMARY PT RESTING IN ROOM COMFORTABLY WITH FAMILY AT BEDSIDE. PT CAME FROM ICU THIS AFTERNOON. EXTUBATED X3 DAYS AGO. R HIP FRACTURE REPAIR WITH FLORIN AND CLEAN DRESSING IN PLACE. PT REPORT SOME PAIN TO HIP, BUT UNDER CONTROL. PT REPORTS ABD PAIN, PER PT AND FAMILY PT LIVES WITH CHRONIC ABD PAIN. PT WAS MEDICATED PER EMAR FOR PAIN. FISCHER CATH IN PLACE DRAINING DARK YELLOW URINE, SOME LEAKING NOTED AROUND FISCHER. BALOON DEFLATED 8ML OF NS IN BALOON. REINFLATED WITH A NEW 10ML SYRINGE. CPN INFUSING IN PICC TO VLADISLAV. CALL LIGHT IN REACH.
[2018-02-17 05:27] LABS: International Normalized Ratio 1.65; Prothrombin Time Results 16.5 Sec (9.7-11.5)
--- NOTE | 2018-02-17 05:29 | NUR ---
SHIFT SUMMARY PATIENT PLEASENT AND COOPERATIVE THROUGHOUT THE NIGHT. PATIENT APPEARED TO NAP ON AND OFF LAST NIGHT. PATIENT REPOSITIONED Q2H AND REMAINS VERY WEAK. CPN RUNNING PER ORDERS VIA PICC. FISCHER CATHETER APPEARS TO BE DRAINING WELL AND PATIENT APPEARS TO NO LONGER BE VOIDING AROUND THE CATHETER. WILL CONTINUE TO MONITOR. VITAL SIGNS CHARTED. WILL CONTINUE TO MONITOR PATIENT AND REPORT TO ONCOMING RN.
--- NOTE | 2018-02-17 09:04 | NUR ---
pt eating breakfast, is feeding herself, but very slow going, she took her po medications with applesauce without diff, a/ox3, slow to answer, has a tremor, feeding precautions, lungs are clear in upper [place], dim in bases, resp even and unlabored, no cough noted, was 100% on 2 liters, turned her down to 1. hrr, tele in place running sr per monitor, see strip, no edema noted, ppp+1, cap refill <3 sec, vs stable, afebrile, iv site is clear and patent, is picc line to left upper arm infusing cpn at this time, btx4, abd flat soft nontender, luque cath draining clear yellow urine, skin has fernando to right hip, otherwise c/w/d, wanda samuel, call light in reach.
[2018-02-17 10:17] LABS: Albumin, Blood 2.4 g/dL (3.4-5.0); Anion Gap 6 mmol/L (6-16); Blood Urea Nitrogen 76 mg/dL (8-24); Bun/Creatinine Ratio 66.7 (12.0-20.0); CO2, Blood 29 mmol/L (21-32); Calcium, Blood 8.4 mg/dL (8.5-10.1); Chloride, Blood 109 mmol/L (98-108); Creatinine, Blood 1.14 mg/dL (0.40-1.00); Glomerular Filtration Rate 49 (60-); Glucose, Blood 97 mg/dL (70-99); Magnesium, Blood 1.6 mg/dL (1.6-2.4); Phosphorus, Blood 3.2 mg/dL (2.5-4.9); Potassium, Blood 4.6 mmol/L (3.5-5.5); Sodium, Blood 144 mmol/L (136-145)
--- NOTE | 2018-02-17 14:00 | NUR ---
pt has been somewhat agitated, and uncomfortable, heart rate up to 130's. call to Dr. Alvarez, recieved orders for ekg and labatolol push, this brought rate down to 115. continue to monitor. call light in reach.
--- NOTE | 2018-02-17 18:27 | NUR ---
spoke with Dr. Alvarez this evening regarding heart rate going up again, recieved orders to increase metoporol to 25mg, and give a one time dose of 12.5 now, this was given, she is also complaining about her mouth and throat hurting, looked in her mouth is bright shiny red. recieved order for nystatin s/s, this was started, her daughter said she said she was feeling like she needs to void but can't, inspected luque, is straight with no kinks, but found the bed wet, she was cleaned up as she had some stool, and old luque removed, was almost out, and looked like it was clogged, after cleaning her and using sterile technique, placed new 16f luque with immediate return of 900mls theodore urine, pt expressed some relief. family in room, call light in reach.
[2018-02-18 04:28] LABS: Hematocrit 35.3 % (33.0-51.0); Hemoglobin 11.2 g/dL (11.5-16.0); Mean Corpuscular HGB Conc 31.7 g/dL (31.5-36.5); Mean Corpuscular Volume 98 fL (80-100); Mean Platelet Volume 11.6 fL (9.1-12.4); Platelet Count 225 K/mm3 (150-400); RDW Coefficient Variation 17.4 % (11.7-14.2); RDW Standard Deviation 60.1 fL (35.1-46.3); Red Blood Cell Count 3.61 M/mm3 (3.80-5.20); White Blood Cell Count 10.16 K/mm3 (4.00-11.30)
[2018-02-18 04:42] LABS: International Normalized Ratio 1.98; Prothrombin Time Results 19.6 Sec (9.7-11.5)
[2018-02-18 04:52] LABS: Magnesium, Blood 1.6 mg/dL (1.6-2.4)
[2018-02-18 05:07] LABS: Albumin, Blood 2.4 g/dL (3.4-5.0); Anion Gap 4 mmol/L (6-16); Blood Urea Nitrogen 68 mg/dL (8-24); CO2, Blood 29 mmol/L (21-32); Calcium, Blood 8.7 mg/dL (8.5-10.1); Chloride, Blood 110 mmol/L (98-108); Creatinine, Blood 0.95 mg/dL (0.40-1.00); Glomerular Filtration Rate >60 (60-); Glucose, Blood 89 mg/dL (70-99); Phosphorus, Blood 2.9 mg/dL (2.5-4.9); Potassium, Blood 6.2 mmol/L (3.5-5.5); Sodium, Blood 143 mmol/L (136-145); Triglycerides 39 mg/dL (30-160)
--- NOTE | 2018-02-18 06:00 | NUR ---
SHIFT SUMMARY PT ALERT AND ORIENTED THROUGHOUT SHIFT. ELEVATED BP THAT IMPROVED WITH MEDICATION ADMINISTRATION SEE VS. ELEVATED K+ THIS AM. DR BADILLO NOTIFIED AND ORDERS GIVEN. PT REPOSTIIONED Q2H. PT COMPLAINS THAT SHE WOULD LIKE TO DRINIK REGULAR WATER, BUT EDUCATED ABOUT ASPIRATION RISK. HR HAS BEEN AFLUTTER WITH A RATE IN THE 110-120s. PT DENIES ANY PAIN IN HER HIP. NO OTHER CHANGES SINCE INITIAL ASSESSMENT. WILL CONTINUE TO MONITOR AND REPORT TO ONCOMING RN. CALL LIGHT IN REACH.
--- NOTE | 2018-02-18 10:16 | NUR ---
pt laying in bed awake a/ox3, pleasant and cooperative with care, follows commands well, denies pain at this time, states she isn't much better than yesterday, but looks better, she is more relaxed, lungs are clear in upper [place], dim in bases, took 02 off as her sats were 99% on 1 liter. resp even and unlabored no cough noted, hrr, tele in place running aflutter per monitor, in the one teens, no edema noted to b/l le, she has wendy hose in place, does however have edema to thighs, ppp+2, cap refill <3sec, vs stable, afebrile, iv is picc line that is flushing well, dressing c/d/i, btx4, abd round soft some tenderness noted, pt is very frail, luque cath draing theodore urine, skin frail, some pink area to inner thighs, has very red mouth, started swish and swallow for thrush, she feels some improvment, attends in place, profoundly weak, pt/ot working with her, wanda, call light in reach.
--- NOTE | 2018-02-18 12:23 | NUR ---
pt worked with pt this am and was able to dangle on side of bed while recieving a bed bath, and linen change. was advanced in her diet by speech. vs stable, no needs at this time. call light in reach.
[2018-02-18 14:50] LABS: Bun/Creatinine Ratio 67.8 (12.0-20.0); Calcium, Blood 8.7 mg/dL (8.5-10.1); Creatinine, Blood 0.96 mg/dL (0.40-1.00)
[2018-02-18 15:30] LABS: Potassium, Blood 3.9 mmol/L (3.5-5.5)
[2018-02-19 05:48] LABS: International Normalized Ratio 2.29; Prothrombin Time Results 22.5 Sec (9.7-11.5)
[2018-02-19 05:51] LABS: Bun/Creatinine Ratio 60.2 (12.0-20.0); Calcium, Blood 8.6 mg/dL (8.5-10.1); Creatinine, Blood 1.08 mg/dL (0.40-1.00); Magnesium, Blood 1.5 mg/dL (1.6-2.4); Phosphorus, Blood 3.5 mg/dL (2.5-4.9); Potassium, Blood 4.1 mmol/L (3.5-5.5)
--- NOTE | 2018-02-19 06:27 | NUR ---
SHIFT SUMMARY PT ALERT AND ORIENTED. VS STABLE. O2 SATS REMIANED >92% ON 1L VIA NC. PT REMAINS VERY WEAK. PT ENCOURAGED TO MOVE LIMBS WHILE IN BED. PT PARTICIPATED IN RANGE OF MOTION EXERCISES. HR HAS BEEN AFLUTTER WITH A RATE IN THE 110-120'2. PT DENIES ANY PAIN TO RIGHT HIP. SURGICAL SITE COVERED WITH DRESSING C/D/I. FISCHER CATHETER PATENT AND DRAINING DAYAMI URINE. SWALLOW PRECAUTIONS IN PLACE. WILL CONTINUE TO MONITOR AND REPORT TO ONCOMING RN. CALL LIGHT IN REACH.
--- NOTE | 2018-02-19 17:37 | NUR ---
EVENING NOTE PT ALERT. FINDINS MOVING AROUND AND BENDING HIS KNEES DIFFICULT. SHE HAS AN OLD FRACTURED LEFT ANKLE THAT GIVES HER ROM ISSUES. HER DAUGHTER HELP REMIND HER TO DO HER BED EXERCISES. SHE IS STARTING TO HELP TURN SIDE TO SIDE. TALKED WITH PT/DAUGHTERS ABOUT ASPIRATION PRECAUTIONS AND SITTIN UP AND HOW IMPORTANT IT IS TO GET OFF HER BUTTOCKS DURING THE NIGHT. PT DENIES NEED FOR PAIN MEDICATIONS. HER AREA OF DISCOMFORT IS HER THROAT AND MOUTH. NYSTATIN IS STARTING TO HELP. COLD FOODS/LIQUIDS HELP TOO. PT AFIB CONVERTED TO SR THIS MORNING. VSS. JUAQUIN ALDANA CALLED (SACHIN) TO INQUIRE ABOUT PT. ASKED PT/DAUGHTER PRIOR TO TALKING WITH THEM FOR PERMISSION. [facility] CARE TEAM WILL BE CONTACTING TOURIST ADVISER TO START PLANNING FOR REHAB TRANSFER AND CONTINUED THERAPY IN THEIR FACILITY. PT AWARE OF PROBABLE TRANSFER. CONTINUE POT.
--- NOTE | 2018-02-20 05:25 | NUR ---
SHIFT SUMMARY PT A&O, FORGETFUL AT TIMES. NO C/O HIP PAIN T/O SHIFT. Q2H REPOSITIONING W/ ROLLED WEDGE KEPT IN BETWEEN KNEES. DRESSING TO R HIP C/D/I. PT C/O MOUTH DISCOMFORT AT BEGINNING OF SHIFT. ORAL NYSTATIN ADMINISTERED ORDERED. NO FURTHER COMPLAINT FROM PT. ASPIRATION PRECAUTIONS FOLLOWED T/O SHIFT. MONITOR SHOWS NSR W/ PAC'S, HR 80'S. LUNG SOUNDS CLEAR T/O, DIM IN BASES. SPO2 > 92% ON 0.5L T/O NIGHT, WITH SWITCH TO RA THIS AM. PT TOLERATING WELL. FISCHER PATENT AND DRAINING CLEAR, DARK YELLOW URINE. BLE ELEVATED W/ PILLOWS . FOAM HEEL PROTECTORS IN PLACE TO BILAT HEELS. WILL CONTINUE TO MONITOR AND PROVIDE CARE UNTIL REPORT OFF TO DAY SHIFT RN.
[2018-02-20 05:26] LABS: International Normalized Ratio 2.66; Prothrombin Time Results 25.9 Sec (9.7-11.5)
[2018-02-20 05:38] LABS: Bun/Creatinine Ratio 54.8 (12.0-20.0); Calcium, Blood 8.3 mg/dL (8.5-10.1); Creatinine, Blood 1.24 mg/dL (0.40-1.00); Magnesium, Blood 1.6 mg/dL (1.6-2.4); Phosphorus, Blood 3.6 mg/dL (2.5-4.9); Potassium, Blood 4.5 mmol/L (3.5-5.5)
--- NOTE | 2018-02-20 11:33 | NUR ---
NOTE PT UP IN RECLINER AT BEDSIDE. PT TOLERATING WELL. PT NAPPING SOFTLY. DAUGHTER AT BEDSIDE. REPOSTIONED FOR COMFORT IN RECLINER. VSS. CONTINUE POT.
--- NOTE | 2018-02-20 17:41 | NUR ---
EVENING NOTE PT WAS UP IN THE RECLINER FOR ABOUT 3 HOURS THIS MORNING. TOOK 3 PEOPLE TO GET HER BACK TO BED WITH GAIT BELT. PT WAS VERY TIRED AFTER HER TIME UP AND NAPPED MOST OF THE AFTERNOON. DAUGHTER AT BEDSIDE. GOOD APPETITE. PT STATED THAT HER MOUTH AND THROAT ARE FEELING BETTER. NO GRIMMICING WITH SWALLOWING. PT HELPED TO TURN SIDE TO SIDE. PILLOW BETWEEN HER KNEES TO PREVENT ANKLE CROSSING WHILE IN BED. RIGHT HIP CD&I. INCISION WITH EDGES WELL APPROXIMATED. CLEAN DRY DRESSING OVER THE TOP. CONTINUE POT.
[2018-02-21 04:31] LABS: International Normalized Ratio 2.9; Prothrombin Time Results 28.1 Sec (9.7-11.5)
--- NOTE | 2018-02-21 05:08 | NUR ---
SHIFT SUMMARY. TURNED Q 2 HR. ENC TO COUGH AND DEEP BREATHE ALL NOC. PAIN REPORTED WAS ONLY SORE THROAT AND TONGUE. AND WHEN TURNED PAINFUL W/ MOVEMENT OF LEG.ALWAYS ABDUCTION MAINTAINED W/ ALL TURNS. FORGETFUL AND REORIENTED. AWAKENS FORM SOUND SLEEP AND A LITTLE DISORIENTED AND TALKING TO SELF. TYLENOL HELP SORE THROAT. DSG INTACT ON RT HIP/ ANASARCA / ESPECIALLY RT HIP AREA/ SR SB / PAC'S ALL SHIFT. RASHY APPEARANCE WILLIE ANAL UNGT APPLIED./MOUTH SEVERE DRYNESS BUT NO WHITE SPOTS SEEN. ALOT OF H2O TAKEN W/ ASP PRECAUTIONS AND HIGH FOWLERS . CONSTANT SUPERVISION FOR FEEDING SELF AND TAKING A DRINK FROM CUP. AT 2300 NOTED HOME O2 USED 24/ . REPORTS 3L USE . 2 L PLACED ALL NOC. LIGHT TEA URINE FEW SPECS OF BLOOD THREADS IN TUBING OF FISCHER. I.S. 500ML. AWAKE ON AND OFF. MOSTLY W/TURNING AND HAS SOME SIPS OF FLUID.
[2018-02-21 07:20] LABS: Bun/Creatinine Ratio 52.1 (12.0-20.0); Calcium, Blood 7.9 mg/dL (8.5-10.1); Creatinine, Blood 1.44 mg/dL (0.40-1.00); Magnesium, Blood 1.7 mg/dL (1.6-2.4); Potassium, Blood 4.2 mmol/L (3.5-5.5)
--- NOTE | 2018-02-21 12:47 | NUR ---
pt up to chair with PT for lunch, daughter in room. she had a bm. did well, is actually smiling, much better affect than last week. call light in reach.
--- NOTE | 2018-02-21 18:11 | NUR ---
pt resting quietly when left undisturbed, she denies complaints this evening, daughter in room. pt condition improving, states she is feeling better, did give pain meds once today, has not required since then, call light in reach.
[2018-02-22 04:40] LABS: International Normalized Ratio 3.35; Prothrombin Time Results 32.2 Sec (9.7-11.5)
--- NOTE | 2018-02-22 05:03 | NUR ---
SHIFT SUMMARY PT ALERT AND ORIENTED. VS STABLE. PT RESTED MOST OF SHIFT. FLORIN REMOVED FROM INCISION SITE. INCISION REMAINS C/D/I. STERI STRIPS APPLIED AND COVERED WITH DRESSING. PT TOLERATED WELL. NO COMPLAINTS AT THIS TIME. PT REPOSITIONED Q2H. PT DENIES ANY PAIN IN THE HIP. EDEMATOUS EXTREMETIES ELEVATED ON PILLOWS. CALL LIGHT IN REACH. WILL CONTINUE TO MONITOR AND REPORT TO ONCOMING RN.
[2018-02-22 08:36] LABS: Hematocrit 33.1 % (33.0-51.0); Hemoglobin 10.5 g/dL (11.5-16.0)
[2018-02-22 08:51] LABS: Bun/Creatinine Ratio 49.3 (12.0-20.0); Calcium, Blood 8.2 mg/dL (8.5-10.1); Creatinine, Blood 1.42 mg/dL (0.40-1.00); Magnesium, Blood 1.6 mg/dL (1.6-2.4); Potassium, Blood 4.3 mmol/L (3.5-5.5)
--- NOTE | 2018-02-22 10:18 | NUR ---
PT RESTING IN BED TROUGHOUT THE MORNING. VSS. ALERT AND ORIENTED X3. C/O 7/10 THROAT PAIN. RIGHT HIP DRSG CDI, NO DRAINAGE NOTED. AMADO DC'D PER ORDERS. ATTENDS IN PLACE. 2+ PITTING EDEMA TO BLE. PT STABLE FOR TRANSFER TO SURGICAL FLOOR. BEDSIDE REPORT TO LIZ MERRILL. PT TRANSFERED TO SURGICAL FLOOR WITH BELONGINGS. DAUGHTER STACIE UPDATED ON NEW ROOM.
--- NOTE | 2018-02-22 13:11 | NUR ---
PT EATING LUNCH. DR FELIZ TO ROOM. DRESSING TO RIGHT HIP CHANGED. NEW AQUACELL DRESSING PLACED. PT SAMUEL WELL. PT WEAK WITH ROLLING.
--- NOTE | 2018-02-22 19:23 | NUR ---
SHIFT SUMMARY PT HAS SHOWN IMPROVEMENT THIS SHIFT-WORKED WITH PT AND OT, UP TO BSC MAX ASSIST WITH 2 STAFF AND GAIT BELT. URINARY RETENTION THIS SHIFT SINCE FISCHER REMOVED AT 1000, BLADDER SCANNED FOR 341 AND STRAIGHT CATHED FOR 400. FLOMAX STARTED THIS SHIFT PER DR GATICA. DENIES PAIN. LEGS ELEVATED FOR BLE EDEMA. PLAN IS TO DC TO SNF WHEN PT VOIDING.
--- NOTE | 2018-02-23 04:43 | NUR ---
SHIFT SUMMARY: PT CONTINUES TO RETAIN URINE. BLADDER SCANNED TWICE AND STRAIGHT CATHED ONCE THIS SHIFT WITH 475 OUTPUT AT APPROX 0345. PT IN BED MOST OF SHIFT. TYLENOL GIVEN TWICE FOR PAIN. SKIN BREAKDOWN NOTED ON COCCYX AREA. PICTURES TAKEN. MEPILEX IN PLACE. SATS ABOVE 90% ON 1 L 02 NC. PT SAMUEL ORAL MEDS WHOLE WITH APPLE SAUCE. EDEMA IN BLE. ANTIEMBOLIC STOCKINGS AND SKUDS APPLIED. PLAN IS FOR PT TO DISCHARGE TO SNF TODAY.
[2018-02-23 05:24] LABS: International Normalized Ratio 3.03; Prothrombin Time Results 29.3 Sec (9.7-11.5)
--- NOTE | 2018-02-23 13:05 | NUR ---
PERMISSION FOR CARE PT GAVE THIS FENDER FINISHER PERMISSION TO CARE FOR HER ON FEBRUARY 23, 2018
--- NOTE | 2018-02-23 16:13 | NUR ---
DISCHARGE PT DISCHARGED TO [facility] AT APROX 1545. REPORT GIVEN TO HERBERTH AT 1600.
== END 2018-02-23 15:45 | DRG 469 ==
LOC: ER 11:36 → SURS 14:49 → ICUW 14:49 → SURS 15:45 → ICUW 02-07 13:50 → ICUE 02-15 19:05 → PCU 02-16 13:30 → SURS 02-22 10:05
PROVIDERS: Anesthesiology; Emergency Medicine; Internal Medicine; Internal Medicine Critical Care Medicine; Internal Medicine Nephrology; Orthopaedic Surgery; Pharmacist; ADMIT Hospitalist
PROC: 30233K1 Transfusion of Nonautologous Frozen Plasma into Peripheral Vein, Percutaneous Approach (ICD-10-PCS; 2018-02-05)
PROC: 30233K1 Transfusion of Nonautologous Frozen Plasma into Peripheral Vein, Percutaneous Approach (ICD-10-PCS; 2018-02-06)
PROC: 30233K1 Transfusion of Nonautologous Frozen Plasma into Peripheral Vein, Percutaneous Approach (ICD-10-PCS; 2018-02-07)
PROC: 0SRR0JZ Replacement of Right Hip Joint, Femoral Surface with Synthetic Substitute, Open Approach (ICD-10-PCS; principal; 2018-02-07 09:00)
PROC: 02HV33Z Insertion of Infusion Device into Superior Vena Cava, Percutaneous Approach (ICD-10-PCS; 2018-02-09)
PROC: B548ZZA Ultrasonography of Superior Vena Cava, Guidance (ICD-10-PCS; 2018-02-09)
PROC: 3E043XZ Introduction of Vasopressor into Central Vein, Percutaneous Approach (ICD-10-PCS; 2018-02-09)
PROC: 5A1955Z Respiratory Ventilation, Greater than 96 Consecutive Hours (ICD-10-PCS; 2018-02-10)
DX: S72.011A Unspecified intracapsular fracture of right femur, initial encounter for closed fracture (principal); N17.0 Acute kidney failure with tubular necrosis; R65.21 Severe sepsis with septic shock; A41.9 Sepsis, unspecified organism; I50.31 Acute diastolic (congestive) heart failure; J95.2 Acute pulmonary insufficiency following nonthoracic surgery; E87.1 Hypo-osmolality and hyponatremia; N39.0 Urinary tract infection, site not specified; J44.9 Chronic obstructive pulmonary disease, unspecified; I11.0 Hypertensive heart disease with heart failure; I95.9 Hypotension, unspecified; E86.1 Hypovolemia; E88.09 Other disorders of plasma-protein metabolism, not elsewhere classified; E86.9 Volume depletion, unspecified; E87.5 Hyperkalemia; Z99.81 Dependence on supplemental oxygen; R31.9 Hematuria, unspecified; R13.10 Dysphagia, unspecified; E83.39 Other disorders of phosphorus metabolism; E83.42 Hypomagnesemia; I36.1 Nonrheumatic tricuspid (valve) insufficiency; Z66 Do not resuscitate; D63.8 Anemia in other chronic diseases classified elsewhere; I48.91 Unspecified atrial fibrillation; E63.9 Nutritional deficiency, unspecified; Z79.899 Other long term (current) drug therapy; R79.1 Abnormal coagulation profile; R19.5 Other fecal abnormalities; K21.9 Gastro-esophageal reflux disease without esophagitis; R00.0 Tachycardia, unspecified; B37.9 Candidiasis, unspecified; R33.9 Retention of urine, unspecified; Z79.01 Long term (current) use of anticoagulants; Z91.81 History of falling; Z88.1 Allergy status to other antibiotic agents; Z88.0 Allergy status to penicillin; Z88.2 Allergy status to sulfonamides; Z95.2 Presence of prosthetic heart valve; V48.4XXA Person boarding or alighting a car injured in noncollision transport accident, initial encounter; Y93.89 Activity, other specified; Y92.9 Unspecified place or not applicable
CPT/HCPCS: 31720; 36415; 36430; 36569; 36600; 71045; 73502; 76770; 78227; 80048; 80053; 80069; 81001; 82150; 82248; 82272; 82550; 82728; 82803; 82947; 83540; 83550; 83690; 83735; 83880; 84100; 84478; 85014; 85018; 85025; 85027; 85610; 85730; 86900; 86901; 87040; 87086; 88305; 88311; 92526; 92610; 93005; 93010; 93306; 93971; 94002; 94003; 94640; 94660; 94760; 96374; 97110; 97163; 97166; 97530; 99285-25; A9537; C1751; C1776; C1894; C9113; G8978; G8979; G8996; G8997; J0282; J0360; J0610; J0690; J0881; J1100; J1644; J1815; J1940; J2370; J2405; J2710; J3010; J3411; J3430; J3475; J7030; J7040; J7042; J7050; J7060; J7120; J7131; P9041; P9059

== ENCOUNTER → 2018-05-31 | Outpatient (CLI) | payer MEDICARE, OTHER ==
[~2018-05-31] MED LIST changes: +Prilosec Otc20 MG
[2018-05-31 13:53] LABS: International Normalized Ratio 2.55; Prothrombin Time Results 24.8 Sec (9.7-11.5)
== END ==
LOC: LAB HH 13:26 → LAB 13:26
PROVIDERS: Family Medicine
DX: Z79.01 Long term (current) use of anticoagulants (principal); Z51.81 Encounter for therapeutic drug level monitoring; I48.91 Unspecified atrial fibrillation
CPT/HCPCS: 85610

== ENCOUNTER → 2018-06-07 | Outpatient (CLI) | payer MEDICARE, OTHER ==
[2018-06-07 12:32] LABS: Creatinine, Blood 1.27 mg/dL (0.40-1.00); Potassium, Blood 3.6 mmol/L (3.5-5.5)
[2018-06-07 12:38] LABS: International Normalized Ratio 2.26; Prothrombin Time Results 22.2 Sec (9.7-11.5)
== END ==
LOC: LAB SHORT 12:10 → LAB 12:10
PROVIDERS: Family Medicine
DX: Z79.01 Long term (current) use of anticoagulants (principal); Z51.81 Encounter for therapeutic drug level monitoring; I11.0 Hypertensive heart disease with heart failure; I50.22 Chronic systolic (congestive) heart failure
CPT/HCPCS: 82565; 83735; 84132; 84520; 85610

== ENCOUNTER 2018-08-09 18:34 | Emergency (ER) | payer MEDICARE, OTHER ==
[~2018-08-09] VITALS: Ht 167.6 cm; Wt 90.7 kg
[2018-08-09] MEDS ORDERED: FURO40 PO (19:14)
[2018-08-09] MEDS ORDERED: MAGOXI400 PO (19:14)
[2018-08-09] MEDS ORDERED: METO5 PO (19:16)
[2018-08-09] MEDS ORDERED: POTCHL10ER PO (19:17)
[2018-08-09] MEDS ORDERED: WARF2.5 PO (19:18)
[2018-08-09] MEDS ORDERED: VITAMIN D32000 UNIT PO (19:20)
[2018-08-09 19:25] LABS: BASOPHILS ABSOLUTE AUTO 0.05 K/mm3 (0.00-0.23); BASOPHILS PERCENT AUTO 1 % (0-2); EOSINOPHILS PERCENT AUTO 3 % (0-6); Hematocrit 37.3 % (33.0-51.0); Hemoglobin 11.1 g/dL (11.5-16.0); IMMATURE GRAN ABSOLUTE AUTO 0.01 K/mm3 (0.00-0.10); IMMATURE GRAN PERCENT AUTO 0 % (0-1); LYMPHOCYTES ABSOLUTE AUTO 0.82 K/mm3 (0.84-5.20); LYMPHOCYTES PERCENT AUTO 21 % (21-46); MONOCYTES PERCENT AUTO 21 % (4-13); Mean Corpuscular HGB 29.1 pg (26.0-34.0); Mean Corpuscular HGB Conc 29.8 g/dL (31.5-36.5); Mean Corpuscular Volume 98 fL (80-100); Mean Platelet Volume 11.6 fL (9.1-12.4); NEUTROPHILS ABSOLUTE AUTO 2.07 K/mm3 (1.96-9.15); NEUTROPHILS PERCENT AUTO 54 % (41-73); Platelet Count 189 K/mm3 (150-400); RDW Coefficient Variation 19.2 % (11.7-14.2); RDW Standard Deviation 69.5 fL (35.1-46.3); Red Blood Cell Count 3.82 M/mm3 (3.80-5.20); White Blood Cell Count 3.85 K/mm3 (4.00-11.30)
[2018-08-09 19:41] LABS: International Normalized Ratio 2.72; Prothrombin Time Results 26.3 Sec (9.7-11.5)
[2018-08-09 19:46] LABS: Troponin I 0.02 ng/mL (0.000-0.040)
[2018-08-09 20:01] LABS: Albumin, Blood 2.4 g/dL (3.4-5.0); Albumin/Globulin Ratio 0.4 (0.8-1.8); Bilirubin, Total 0.8 mg/dL (0.1-1.0); Bun/Creatinine Ratio 26.4 (12.0-20.0); Calcium, Blood 9.1 mg/dL (8.5-10.1); Creatinine, Blood 0.98 mg/dL (0.40-1.00); Globulin, Blood 5.6 g/dL (2.2-4.0); Potassium, Blood 4.9 mmol/L (3.5-5.5)
== END 2018-08-09 21:10 | disposition home or self-care (01) ==
LOC: ER 18:34
PROVIDERS: Physician Assistant
DX: R60.0 Localized edema (principal); I11.0 Hypertensive heart disease with heart failure; I50.32 Chronic diastolic (congestive) heart failure; I48.91 Unspecified atrial fibrillation; J44.9 Chronic obstructive pulmonary disease, unspecified; K21.9 Gastro-esophageal reflux disease without esophagitis; Z79.899 Other long term (current) drug therapy; Z79.01 Long term (current) use of anticoagulants
CPT/HCPCS: 36415; 71046; 80053; 83880; 84484; 85025; 85610; 85730; 93005; 93010; 96374; 99284-25; J1940

== ENCOUNTER 2018-08-21 13:16 | Emergency (ER) | payer MEDICARE, OTHER ==
[~2018-08-21] VITALS: Ht 170.2 cm; Wt 72.6 kg
[~2018-08-21 13:16] MED LIST changes: +FURO40 PO; +MAGOXI400 PO; +METO5 PO; +POTCHL10ER PO; +VITAMIN D32000 UNIT PO; +WARF2.5 PO
[2018-08-21 14:15] LABS: BASOPHILS ABSOLUTE AUTO 0.04 K/mm3 (0.00-0.23); BASOPHILS PERCENT AUTO 1 % (0-2); EOSINOPHILS ABSOLUTE AUTO 0.08 K/mm3 (0.00-0.68); EOSINOPHILS PERCENT AUTO 2 % (0-6); Hematocrit 37.7 % (33.0-51.0); Hemoglobin 11.5 g/dL (11.5-16.0); IMMATURE GRAN ABSOLUTE AUTO 0.01 K/mm3 (0.00-0.10); IMMATURE GRAN PERCENT AUTO 0 % (0-1); LYMPHOCYTES ABSOLUTE AUTO 0.76 K/mm3 (0.84-5.20); LYMPHOCYTES PERCENT AUTO 16 % (21-46); MONOCYTES ABSOLUTE AUTO 0.71 K/mm3 (0.16-1.47); MONOCYTES PERCENT AUTO 15 % (4-13); Mean Corpuscular HGB 29.1 pg (26.0-34.0); Mean Corpuscular HGB Conc 30.5 g/dL (31.5-36.5); Mean Platelet Volume 11.2 fL (9.1-12.4); NEUTROPHILS ABSOLUTE AUTO 3.15 K/mm3 (1.96-9.15); NEUTROPHILS PERCENT AUTO 66 % (41-73); Platelet Count 216 K/mm3 (150-400); RDW Coefficient Variation 19.4 % (11.7-14.2); RDW Standard Deviation 67.6 fL (35.1-46.3); Red Blood Cell Count 3.95 M/mm3 (3.80-5.20); White Blood Cell Count 4.75 K/mm3 (4.00-11.30)
[2018-08-21 14:16] LABS: Mean Corpuscular Volume 95 fL (80-100)
[2018-08-21 14:46] LABS: Albumin, Blood 2.5 g/dL (3.4-5.0); Albumin/Globulin Ratio 0.4 (0.8-1.8); Bilirubin, Total 0.9 mg/dL (0.1-1.0); Bun/Creatinine Ratio 27.6 (12.0-20.0); Calcium, Blood 8.9 mg/dL (8.5-10.1); Creatinine, Blood 1.05 mg/dL (0.40-1.00); Globulin, Blood 5.6 g/dL (2.2-4.0); Potassium, Blood 3.7 mmol/L (3.5-5.5); Total Protein, Blood 8.1 g/dL (6.4-8.2)
[2018-08-21 14:48] LABS: Troponin I 0.022 ng/mL (0.000-0.040)
[2018-08-21 14:55] LABS: International Normalized Ratio 2.57
[2018-08-21 15:08] LABS: Source, Urine Clean Catch
[2018-08-21 15:11] LABS: Bilirubin, Urine Neg (Neg); Blood, Urine Neg (Neg); Glucose Qualitative, Urine Neg (Neg); Ketones, Urine Neg (Neg); Leukocyte Esterase, Urine Neg (Neg); Nitrite, Urine Neg (Neg); Protein, Urine Neg (Neg); Specific Gravity, Urine 1.005 (1.003-1.022); Urobilinogen, Urine NORM (Normal)
[2018-08-21 15:24] LABS: Appearance, Urine Clear (Clear); Color, Urine Pale Yellow (P-Yellow)
== END 2018-08-21 16:50 | disposition home or self-care (01) ==
LOC: ER 13:16
PROVIDERS: Emergency Medicine; Physician Assistant
DX: R53.1 Weakness (principal); R62.7 Adult failure to thrive; Z68.25 Body mass index [BMI] 25.0-25.9, adult; Z88.8 Allergy status to other drugs, medicaments and biological substances; Z88.0 Allergy status to penicillin; Z88.1 Allergy status to other antibiotic agents; Z88.2 Allergy status to sulfonamides; Z79.899 Other long term (current) drug therapy; Z79.01 Long term (current) use of anticoagulants; I10 Essential (primary) hypertension; I48.91 Unspecified atrial fibrillation
CPT/HCPCS: 36415; 71046; 80053; 81003; 83735; 83880; 84484; 85025; 85610; 93005; 93010; 99284-25

== ENCOUNTER 2018-10-31 20:49 | Inpatient (IN) | payer MEDICARE, OTHER ==
[~2018-10-31] VITALS: Ht 170.2 cm; Wt 67.3 kg
[2018-10-31 21:02] LABS: Hematocrit 38.9 % (33.0-51.0); Hemoglobin 11.7 g/dL (11.5-16.0); Mean Corpuscular HGB Conc 30.1 g/dL (31.5-36.5); Mean Corpuscular Volume 103 fL (80-100); Mean Platelet Volume 10.6 fL (9.1-12.4); Platelet Count 210 K/mm3 (150-400); RDW Coefficient Variation 16.8 % (11.7-14.2); RDW Standard Deviation 63.8 fL (35.1-46.3); Red Blood Cell Count 3.77 M/mm3 (3.80-5.20)
[2018-10-31] MEDS ORDERED: CITA20 PO (21:05)
[2018-10-31] MEDS ORDERED: MIRT15 PO (21:05)
[2018-10-31] MEDS ORDERED: POTA10T PO (21:05)
[2018-10-31] MEDS ORDERED: OMEPRAZOLE20 MG PO (21:05)
[2018-10-31] MEDS ORDERED: METO25 PO (21:05)
[2018-10-31] MEDS ORDERED: Zocor20 MG PO (21:06)
[2018-10-31] MEDS ORDERED: MAGNESIUM OXID500 MG PO (21:06)
[2018-10-31] MEDS ORDERED: FURO40 PO (21:06)
[2018-10-31] MEDS ORDERED: WARF2.5 PO ×2 (21:06→21:07)
[2018-10-31] MEDS ORDERED: Ventolin/Prove6.7 GM INH (21:07)
[2018-10-31] MEDS ORDERED: ALVESCO INH (21:08)
[2018-10-31 21:23] LABS: BAND PERCENT MAN 8 % (0-8); BASOPHILS ABSOLUTE MAN 0.13 K/mm3 (0.00-0.23); BASOPHILS PERCENT MAN 1 % (0-2); EOSINOPHILS PERCENT MAN 0 % (0-6); LYMPHOCYTES ABSOLUTE MAN 0.52 K/mm3 (0.84-5.20); LYMPHOCYTES PERCENT MAN 4 % (21-46); MONOCYTES ABSOLUTE MAN 1.17 K/mm3 (0.16-1.47); MONOCYTES PERCENT MAN 9 % (4-13); NEUTROPHILS ABSOLUTE MAN 11.26 K/mm3 (1.96-9.15); SEG NEUTROPHILS PERCENT MAN 78 % (41-73); TOTAL CELLS COUNTED 100
[2018-10-31 21:25] LABS: Alanine Aminotransfer (ALT/SGP 101 U/L (12-78); Albumin, Blood 2.7 g/dL (3.4-5.0); Albumin/Globulin Ratio 0.5 (0.8-1.8); Alk Phos 399 U/L (50-136); Anion Gap 5 mmol/L (6-16); Aspartate Aminotrans (AST/SGOT 205 U/L (12-37); Bilirubin, Total 3.1 mg/dL (0.1-1.0); Blood Urea Nitrogen 30 mg/dL (8-24); Bun/Creatinine Ratio 35.4 (12.0-20.0); CO2, Blood 41 mmol/L (21-32); Calcium, Blood 9.5 mg/dL (8.5-10.1); Chloride, Blood 98 mmol/L (98-108); Creatinine, Blood 0.85 mg/dL (0.40-1.00); Globulin, Blood 5.9 g/dL (2.2-4.0); Glomerular Filtration Rate >60 (60-); Glucose, Blood 141 mg/dL (70-99); Potassium, Blood 3.5 mmol/L (3.5-5.5); Sodium, Blood 144 mmol/L (136-145); Total Protein, Blood 8.6 g/dL (6.4-8.2); Troponin I 0.024 ng/mL (0.000-0.040)
[2018-10-31 21:47] LABS: PCO2 Arterial 69.9 mmHg (35-45); PO2 Arterial 66.9 mmHg (80-100); pH Blood Arterial 7.41 (7.35-7.45)
[2018-11-01 05:09] LABS: Hematocrit 33.8 % (33.0-51.0); Hemoglobin 10.3 g/dL (11.5-16.0); Mean Corpuscular HGB 31.1 pg (26.0-34.0); Mean Corpuscular HGB Conc 30.5 g/dL (31.5-36.5); Mean Corpuscular Volume 102 fL (80-100); Mean Platelet Volume 11.4 fL (9.1-12.4); Platelet Count 162 K/mm3 (150-400); RDW Standard Deviation 63.5 fL (35.1-46.3); Red Blood Cell Count 3.31 M/mm3 (3.80-5.20); White Blood Cell Count 10.58 K/mm3 (4.00-11.30)
[2018-11-01 05:29] LABS: Albumin, Blood 2.3 g/dL (3.4-5.0); Albumin/Globulin Ratio 0.5 (0.8-1.8); Bilirubin, Total 3.8 mg/dL (0.1-1.0); Bun/Creatinine Ratio 25.2 (12.0-20.0); Creatinine, Blood 1.35 mg/dL (0.40-1.00); Magnesium, Blood 1.9 mg/dL (1.6-2.4); Prothrombin Time Results 44.2 Sec (9.7-11.5); Total Protein, Blood 7.3 g/dL (6.4-8.2)
[2018-11-01 05:33] LABS: International Normalized Ratio 4.81
[2018-11-01 05:36] LABS: BAND PERCENT MAN 9 % (0-8); BASOPHILS PERCENT MAN 0 % (0-2); EOSINOPHILS PERCENT MAN 0 % (0-6); LYMPHOCYTES ABSOLUTE MAN 0.21 K/mm3 (0.84-5.20); LYMPHOCYTES PERCENT MAN 2 % (21-46); MONOCYTES ABSOLUTE MAN 0.21 K/mm3 (0.16-1.47); MONOCYTES PERCENT MAN 2 % (4-13); NEUTROPHILS ABSOLUTE MAN 10.15 K/mm3 (1.96-9.15); SEG NEUTROPHILS PERCENT MAN 87 % (41-73); TOTAL CELLS COUNTED 100
--- NOTE | 2018-11-01 11:00 | NUR ---
INITIAL ASSESSMENT: Report recieved from Maria Eugenia Comer ED RN. Patient arrived to PCU 2 via gurney and was slid to the bed. Patient is awake and oriented to self only. Patient thinks she is at [facility] and is not able to tell me the date. Patient reports she is having pain in her left hand, unalbe to rate-3/10 per face scale. HRR, SR with PAC's per telemetry. LS dim T/O. Biox 98% on 4L oxygen via oxymizer. RT titrated Oxygen down to 2l via NC. BT+. PPP. No edema present at this time. Patient rolled to get extra linen out from underneath her. Skin checked, she has a couple of pressure ulcers to bilat upper buttocks. Area around coccyx and gluteal cleft is purple, but blanchable. Will place mepliex to coccyx, and take pictures. Patient repositioned to left side. Bed alarm on for safety. Patient oriented to room and call light. Will continue to monitor.
--- NOTE | 2018-11-01 12:00 | NUR ---
Report given to Monster Moreno.
--- NOTE | 2018-11-01 12:19 | NUR ---
NEW 18G IV STARTED TO LEFT FA. FLUSHES WELL. WILL START IVF TO THIS ACCESS. IV TO RIGHT AC FLUSHED AND CLAMPED.
--- NOTE | 2018-11-01 13:26 | NUR ---
THERAPY AT BEDSIDE. FAMILY NOW PRESENT.
--- NOTE | 2018-11-01 15:53 | NUR ---
PT TURNED, MEPILEX PLACED TO BUTTOCKS.
--- NOTE | 2018-11-01 16:00 | NUR ---
ASSUMED CARE OF PATIENT. PT IS RESTING WITH EYES CLOSED, RESP E/U. FAMILY AT BEDSIDE. PT AND FAMILY DENIES NEEDS AT THIS TIME. CALL LIGHT IN REACH. BED ALARM ON FOR SAFETY. WILL CONTINUE TO MONITOR.
--- NOTE | 2018-11-01 17:30 | NUR ---
BEDSIDE SWALLOW EVAL: PT IS SITTING AT A 90 DEGREE ANGLE IN BED. ORAL CARE PERFORMED WITH GREEN ORAL SWAB. BIOX WNL ON 2L VIA NC. RESP E/U AT 20 BPM. PT WAS ABLE TO SWALLOW SPOONFUL OF WATER WITHOUT DIFFICULTY. THIS RN ALSO GAVE PATIENT, A BITE OF APPLESAUCE, PUDDING, AND A GRAM CRACKER. ALL OF THESE VARIOUS ITEMS WERE SWALLOWED WITHOUT DIFFICULTY. PT HAD CLEAR VOICE AFTER SWALLOWING EACH. PRILOSEC GIVEN WITH APPLESAUCE WHOLE, SWALLOWED WITHOUT DIFFICULTY. PT DENIES OTHER NEEDS AT THIS TIME. CARDIAC DIET ORDERED PER MD ORDERS POST-BEDSIDE SWALLOW EVAL.
--- NOTE | 2018-11-01 18:51 | NUR ---
PATIENT HAS DONE WELL SINCE ARRIVAL TO PCU 2. PT HAS MOSTLY BEEN RESTING WITH EYES CLOSED, RESP E/U. BIOX HAS BEEN WNL ON 2L VIA NC. PT HAS NOT REQUIRED BI-PAP AT ALL THIS SHIFT. PT WAS ABLE TO PASS BEDSIDE SWALLOW EVAL-RN. NO ACUTE CHANGES THIS SHIFT. WILL REPORT TO ONCOMING RN.
[2018-11-01 22:04] LABS: Source, Urine Catheter
[2018-11-01 22:07] LABS: Blood, Urine 3+ (Neg); Glucose Qualitative, Urine 1+ (Neg); Ketones, Urine 1+ (Neg); Leukocyte Esterase, Urine 1+ (Neg); Nitrite, Urine Pos (Neg); Protein, Urine 2+ (Neg); Specific Gravity, Urine 1.025 (1.003-1.022); Urobilinogen, Urine 3+ (Normal)
[2018-11-01 22:18] LABS: Appearance, Urine Hazy (Clear); Bilirubin, Urine 2+ (Neg); Color, Urine Amber (P-Yellow)
[2018-11-01 22:19] LABS: Amorphous Light (0-Heavy); Bacteria Mod /hpf; Red Blood Cells, Urine Rare /hpf (0-2); Squamous Epithelial Cells Few /hpf (Few); Transitional Epithelial Cells Few /hpf (0-Rare)
[2018-11-02 04:08] LABS: Hematocrit 31.5 % (33.0-51.0); Hemoglobin 9.8 g/dL (11.5-16.0); Mean Corpuscular HGB 30.5 pg (26.0-34.0); Mean Corpuscular HGB Conc 31.1 g/dL (31.5-36.5); Mean Platelet Volume 11.5 fL (9.1-12.4); Platelet Count 162 K/mm3 (150-400); RDW Standard Deviation 61.8 fL (35.1-46.3); Red Blood Cell Count 3.21 M/mm3 (3.80-5.20)
[2018-11-02 04:09] LABS: Mean Corpuscular Volume 98 fL (80-100)
[2018-11-02 04:31] LABS: Prothrombin Time Results 52.5 Sec (9.7-11.5)
[2018-11-02 04:37] LABS: Alanine Aminotransfer (ALT/SGP 165 U/L (12-78); Albumin, Blood 2.4 g/dL (3.4-5.0); Albumin/Globulin Ratio 0.5 (0.8-1.8); Alk Phos 334 U/L (50-136); Anion Gap 6 mmol/L (6-16); Aspartate Aminotrans (AST/SGOT 274 U/L (12-37); Blood Urea Nitrogen 52 mg/dL (8-24); Bun/Creatinine Ratio 21.8 (12.0-20.0); CO2, Blood 38 mmol/L (21-32); Calcium, Blood 8.9 mg/dL (8.5-10.1); Chloride, Blood 98 mmol/L (98-108); Creatinine, Blood 2.39 mg/dL (0.40-1.00); Glomerular Filtration Rate 21 (60-); Glucose, Blood 104 mg/dL (70-99); Phosphorus, Blood 3.8 mg/dL (2.5-4.9); Potassium, Blood 3.6 mmol/L (3.5-5.5); Sodium, Blood 142 mmol/L (136-145); Total Protein, Blood 7.4 g/dL (6.4-8.2)
[2018-11-02 04:48] LABS: BAND PERCENT MAN 4 % (0-8); BASOPHILS PERCENT MAN 0 % (0-2); EOSINOPHILS PERCENT MAN 0 % (0-6); LYMPHOCYTES ABSOLUTE MAN 0.08 K/mm3 (0.84-5.20); LYMPHOCYTES PERCENT MAN 1 % (21-46); MONOCYTES ABSOLUTE MAN 0.49 K/mm3 (0.16-1.47); MONOCYTES PERCENT MAN 6 % (4-13); NEUTROPHILS ABSOLUTE MAN 7.62 K/mm3 (1.96-9.15); SEG NEUTROPHILS PERCENT MAN 89 % (41-73); TOTAL CELLS COUNTED 100
[2018-11-02 04:50] LABS: International Normalized Ratio 5.81
--- NOTE | 2018-11-02 05:00 | NUR ---
PROVIDER DR RITCHIE NOTIFIED OF PT'S CREATININE INCREASING FROM 1.35 TO 2.39 AND BUN FROM 34 TO 52. REVIEWED CURRENT NS IV OF 50MLS/HR. DOES NOT PLACE ANY ORDERS AT THIS TIME.
--- NOTE | 2018-11-02 07:43 | NUR ---
END OF SHIFT SUMMARY PT ALERT AND SOMETIMES ORIENTED WITH UNDERLYING ANXIETY. PT PRESESNTS WITH TREMORS AND FOOT DROP. PT BEING REPOSITIONED BY STAFF. PT VSS EXCEPT WHEN DESATURATING WHEN PT TAKES OFF HER M SERIES. PT HAS BEEN ON M SERIES THIS SHIFT WITH 4L BLEED IN, THIS HAS REQUIRED SOME TITRATION UP AND DOWN T/O THE NIGHT. PT HAS TOLERATED SMALL BREAKS ON 2LNC. PT WAS NOT INCONTINENT THIS SHIFT SINCE I OBTAINED THIS PT FROM VERONIKA MERRILL. SEE NOTE REGARDING PHYSICIAN. PT WAS COMPLAINING OF SEVERE SHOOTING PAIN IN FEET, PT STARTED ON GABAPENTIN PER DR RITCHIE. OTHERWISE, PT HAS TO BE REMINDED TO USE TALYA LIGHT APPROPRIATELY AND TO KEEP MASK ON. CALL LIGHT ON BED. BED IN LOWEST POSITION. BED ALARM IN PLACE. REPORT GIVEN TO ONCKIA MERRILL.
--- NOTE | 2018-11-02 17:28 | NUR ---
EVENING NOTE PT ALERT, ORIENTED TO SELF. HAS A BEAUTIFUL SMILE. DAUGHTER AT BEDSIDE. SLEPT MOST OF THE DAY. UNLESS STAFF WAS TURNING HER, CLEANING HER OR HELPING TO EAT MEALS. PT HAND TREMOR MAKES IT DIFFICULT FOR HER TO USE UTENSILS WITHOUT DROPPING THE FOOD. DAUGHTER AT BEDSIDE. SLUDGE CONTROL OPERATOR IS WORKING TOWARDS MOVING HER TO SNF. DR JACOBSON CONSULTED. BLADDER SCAN DONE PER ORDER. PT RESTING QUIETLY. NO DISCOMFORT TODAY. SHE TRIES TO HLEP TURN BUT HER LEFT HAND HAS SUCH BAD ARTHRITUS THAT IT'S HARD FOR HER TO DISTILLERY LABORER AND HER RIGHT HAND HAS A TREMOR. CONTINUE POT.
[2018-11-03 04:05] LABS: BASOPHILS ABSOLUTE AUTO 0.01 K/mm3 (0.00-0.23); BASOPHILS PERCENT AUTO 0 % (0-2); EOSINOPHILS ABSOLUTE AUTO 0.01 K/mm3 (0.00-0.68); EOSINOPHILS PERCENT AUTO 0 % (0-6); Hematocrit 30.7 % (33.0-51.0); Hemoglobin 9.2 g/dL (11.5-16.0); IMMATURE GRAN ABSOLUTE AUTO 0.02 K/mm3 (0.00-0.10); IMMATURE GRAN PERCENT AUTO 0 % (0-1); LYMPHOCYTES ABSOLUTE AUTO 0.32 K/mm3 (0.84-5.20); LYMPHOCYTES PERCENT AUTO 5 % (21-46); MONOCYTES PERCENT AUTO 14 % (4-13); Mean Corpuscular HGB 30.4 pg (26.0-34.0); NEUTROPHILS ABSOLUTE AUTO 5.26 K/mm3 (1.96-9.15); NEUTROPHILS PERCENT AUTO 81 % (41-73); Platelet Count 142 K/mm3 (150-400); RDW Coefficient Variation 17.1 % (11.7-14.2); RDW Standard Deviation 63.2 fL (35.1-46.3); Red Blood Cell Count 3.03 M/mm3 (3.80-5.20); White Blood Cell Count 6.52 K/mm3 (4.00-11.30)
--- NOTE | 2018-11-03 04:05 | NUR ---
PATIENT HAS NOT HAD ANY URINE OUTPUT TONIGHT. PATIENT GETTING IV FLUIDS AT 75/HR. BLADDER SCANNED FOR 210CC. PATIENT DOES NOT FEEL THE NEED TO GO.
[2018-11-03 04:06] LABS: Mean Corpuscular Volume 101 fL (80-100)
[2018-11-03 04:24] LABS: Albumin, Blood 2.2 g/dL (3.4-5.0); Albumin/Globulin Ratio 0.5 (0.8-1.8); Bilirubin, Total 1.6 mg/dL (0.1-1.0); Bun/Creatinine Ratio 23.1 (12.0-20.0); Calcium, Blood 8.8 mg/dL (8.5-10.1); Creatinine, Blood 2.77 mg/dL (0.40-1.00); Globulin, Blood 4.8 g/dL (2.2-4.0)
[2018-11-03 04:25] LABS: Prothrombin Time Results 38.2 Sec (9.7-11.5)
[2018-11-03 04:28] LABS: International Normalized Ratio 4.1
--- NOTE | 2018-11-03 05:40 | NUR ---
PATIENT REPOSITIONED EVERY TWO HOURS. PATIENT PLEASANTLY CONFUSED. PATIENT CAN NOT MAKE ANY INDEPENDENT MOVEMENT. CONTINUES TO BE NO VOID. DENIES ANY PAIN. SLEPT THROUGH NIGHT IN BETWEEN CARE.
--- NOTE | 2018-11-03 10:27 | NUR ---
Reviewed pt's POLST form at [facility] with her. She agrees with POLST choices and is able to initial the form. She c/o very shaky hands. POLST signed by pt left on bedside table for MD to sign. Requested that pt's nurse contact PC when MD signs the POLST so it can be processed into the EMR and sent to [place] POL[place] registry.
[2018-11-03] MEDS ORDERED: METO2.5 PO (13:50)
--- NOTE | 2018-11-03 15:28 | NUR ---
UPDATE PT STILL UNABLE TO URINATE. BLADDER SCAN SHOWS 408ML. DR. JACOBSON CALLED AND NOTIFED. PT FAMILY MEMBER BROUGHT IN HOME MEDICATION ZAROXOLYN AND DR. JACOBSON NOTIFIED. NEW ORDERS FOR IV LASIX AND IF NO OUTPUT, PLACE FISCHER CATHETER. WILL CONTINUE TO MONITOR.
--- NOTE | 2018-11-03 17:52 | NUR ---
SHIFT SUMMARY PT ALERT AND ORIENTED TO SELF, SITUATION, AND FAMILY. VS STABLE. O2 SATS REMAIN ABOVE 90% ON 2L NC. HR HAS BEEN SR WITH WAP AVG RATE 105. BP STABLE. PT DENIES ANY PAIN. PT REPOSITIONED Q2H. FISCHER CATHETER INSERTED DUE TO RETENTION. NS INFUSING PER ORDERS. WILL CONTINUE TO MONITOR CLOSELY.
--- NOTE | 2018-11-03 19:43 | NUR ---
PATIENT COMPLAINING OF PAIN IN HER NECK AND JUST WANTING APAP. CALLED DR BENITEZ WHO ORDERED APAP 650MG Q8H PRN FOR PAIN. NO FURTHER ORDERS TAKEN.
[2018-11-04 04:21] LABS: Hemoglobin 9.4 g/dL (11.5-16.0)
[2018-11-04 04:34] LABS: International Normalized Ratio 2.6; Prothrombin Time Results 25.3 Sec (9.7-11.5)
[2018-11-04 04:39] LABS: Albumin, Blood 2.2 g/dL (3.4-5.0); Anion Gap 5 mmol/L (6-16); Blood Urea Nitrogen 68 mg/dL (8-24); Bun/Creatinine Ratio 25.5 (12.0-20.0); CO2, Blood 34 mmol/L (21-32); Calcium, Blood 8.4 mg/dL (8.5-10.1); Chloride, Blood 98 mmol/L (98-108); Creatinine, Blood 2.67 mg/dL (0.40-1.00); Glomerular Filtration Rate 18 (60-); Glucose, Blood 98 mg/dL (70-99); Magnesium, Blood 1.8 mg/dL (1.6-2.4); Phosphorus, Blood 3.5 mg/dL (2.5-4.9); Potassium, Blood 3.8 mmol/L (3.5-5.5); Sodium, Blood 137 mmol/L (136-145)
--- NOTE | 2018-11-04 06:00 | NUR ---
PATIENT HAS BEEN SLIGHTLY RESTLESS TONIGHT. PATIENT PULLING OFF OXYGEN AT TIMES. PATIENT SATURATION DROPS TO LOW 80'S ON ROOM AIR. PATIENT HAD NECK ACHE THAT WAS RESOLVED WITH APAP. PATIENT REPOSITIONED EVERY TWO HOURS. CALL LIGHT REMAINED WITH IN REACH.
--- NOTE | 2018-11-04 19:28 | NUR ---
SHIFT SUMMARY FISCHER IN PLACE AND DRAINING, ONLY 2OOcc OUT DURING SHIFT, 24cc BLADDER SCAN. LEFT MESSAGE FOR DR JACOBSON WITH NO RETURN CALL OF NOW, REPORT GIVEN TO DESIRAE MAJOR TO FOLLOW UP. PT HAS HAD INCREASED EDEMA TO BLE, 1+ THIS AM, 2+ THIS AFTERNOON. PT SOB WITH EXERTION, SPO2 >94% ON 3L O2, TITRATED TO 2L O2 DURING SHIFT, LS DIM T/O. PT A&Ox1, PLEASANTLY CONFUSED. PT 1-2 PERSON ASSIST WITH SITTING ON SIDE OF BED. PT REPORTS NECK PAIN, MEDICATED WITH TYLENOL WITH POSITIVE RESULTS. PT REPOSITIONED Q2 T/O SHIFT. PT RECEIVING IV ANTIBIOTICS AND IV FLUIDS. NO BM SINCE ADMISSION, DR CALVILLO NOTIFIED, NEW ORDERS ENTERED. VSS. NO OTHER ACUTE CHANGES NOTED DURING SHIFT. REPORT GIVEN TO ONCOMING RN.
--- NOTE | 2018-11-04 20:02 | NUR ---
DR. JACOBSON CALLED BACK. INFORMED DOCTOR OF URINE OUTPUT. DOCTOR ORDERED FOR 2MG IV BUMEX X1. NO FURTHER ORDERS TAKEN.
--- NOTE | 2018-11-04 23:19 | NUR ---
DR. JACOBSON IN TO SEE PATIENT. DOCTOR ORDERED TO DISCONTINUE I FLUIDS AND START ON 2MG BUMEX IV BID. NO FURTHER ORDERS TAKEN.
[2018-11-05 04:03] LABS: BASOPHILS ABSOLUTE AUTO 0.01 K/mm3 (0.00-0.23); BASOPHILS PERCENT AUTO 0 % (0-2); EOSINOPHILS ABSOLUTE AUTO 0.11 K/mm3 (0.00-0.68); EOSINOPHILS PERCENT AUTO 2 % (0-6); Hematocrit 31.2 % (33.0-51.0); Hemoglobin 9.6 g/dL (11.5-16.0); IMMATURE GRAN ABSOLUTE AUTO 0.01 K/mm3 (0.00-0.10); IMMATURE GRAN PERCENT AUTO 0 % (0-1); LYMPHOCYTES ABSOLUTE AUTO 0.37 K/mm3 (0.84-5.20); LYMPHOCYTES PERCENT AUTO 8 % (21-46); MONOCYTES ABSOLUTE AUTO 0.63 K/mm3 (0.16-1.47); MONOCYTES PERCENT AUTO 14 % (4-13); Mean Corpuscular HGB 30.4 pg (26.0-34.0); Mean Corpuscular HGB Conc 30.8 g/dL (31.5-36.5); Mean Corpuscular Volume 99 fL (80-100); NEUTROPHILS ABSOLUTE AUTO 3.52 K/mm3 (1.96-9.15); NEUTROPHILS PERCENT AUTO 76 % (41-73); Platelet Count 143 K/mm3 (150-400); RDW Coefficient Variation 16.9 % (11.7-14.2); RDW Standard Deviation 60.7 fL (35.1-46.3); Red Blood Cell Count 3.16 M/mm3 (3.80-5.20); White Blood Cell Count 4.65 K/mm3 (4.00-11.30)
[2018-11-05 04:16] LABS: International Normalized Ratio 1.93; Prothrombin Time Results 19.3 Sec (9.7-11.5)
[2018-11-05 04:20] LABS: Albumin, Blood 2.2 g/dL (3.4-5.0); Anion Gap 4 mmol/L (6-16); Blood Urea Nitrogen 67 mg/dL (8-24); Bun/Creatinine Ratio 26.7 (12.0-20.0); CO2, Blood 34 mmol/L (21-32); Calcium, Blood 8.7 mg/dL (8.5-10.1); Chloride, Blood 99 mmol/L (98-108); Creatinine, Blood 2.51 mg/dL (0.40-1.00); Glomerular Filtration Rate 20 (60-); Glucose, Blood 85 mg/dL (70-99); Potassium, Blood 3.9 mmol/L (3.5-5.5); Sodium, Blood 137 mmol/L (136-145)
--- NOTE | 2018-11-05 05:42 | NUR ---
PATIENT LAYING IN BED, REPOSITIONED EVERY 2 HOURS. PATIENT DENIES ANY PAIN, BUT COMPLAINING OF A SORE THROAT THIS AM. PATIENT IS A MOUTH BREATHER. PATIENT HAD 700 URINE OUTPUT AFTER DIYRETIC. PATIENT FLUIDS DISCONTINUED.
--- NOTE | 2018-11-05 18:48 | NUR ---
SHIFT SUMMARY PT A&O TO PERSON, UNABLE TO STATE DATE, PLACE/SURROUNDING OR WHY SHE IS HERE. PT PLEASANTLY CONFUSED. 2 PERSON ASSIST WITH REPOSITIONING, Q2. PASSIVE RANGE OF MOTION PREFORMED T/O SHIFT. PT REPORTS PAIN IN NECK, MEDICATED x1 WITH TYLENOL WITH POSITIVE RESULTS, REPOSITIONED NECK WITH POSITIVE RESULTS. PT DENIES NAUSEA, GOOD APPETITE, FEEDER. PT ON FLUID RESTRICTION THIS AM PER DR JACOBSON, 1000ML, 800ML IN DURING SHIFT. 1000ML URINE OUTPUT DURING SHIFT. PT RECEIVING IV BUMEX. PT SOB AND DESAT WITH MOVEMENT, ON 3L O2 MARK NC THIS AM, TITRATED TO 2L O2 VIA NC THIS EVENING. FISCHER PATENT AND DRAINING. VSS. NO OTHER ACUTE CHANGES NOTED DURING SHIFT. REPORT GIVEN TO ONCOMING RN.
--- NOTE | 2018-11-05 21:08 | NUR ---
CALLED SOLEDAD GUTIERREZ FOR ORDERS FOR CONSTIPATION. TAKEN ORDERS FOR DULCOLAX SUPP AND FLEET MINERAL OIL ENEMA PRN DAILY FOR BOTH. NO FURTHER ORDERS TAKEN.
[2018-11-06 03:59] LABS: Hemoglobin 10.4 g/dL (11.5-16.0)
[2018-11-06 04:18] LABS: Albumin, Blood 2.2 g/dL (3.4-5.0); Anion Gap 5 mmol/L (6-16); Blood Urea Nitrogen 69 mg/dL (8-24); CO2, Blood 37 mmol/L (21-32); Calcium, Blood 8.9 mg/dL (8.5-10.1); Chloride, Blood 95 mmol/L (98-108); Creatinine, Blood 2.46 mg/dL (0.40-1.00); Glomerular Filtration Rate 20 (60-); Glucose, Blood 84 mg/dL (70-99); Magnesium, Blood 1.8 mg/dL (1.6-2.4); Sodium, Blood 137 mmol/L (136-145)
--- NOTE | 2018-11-06 05:42 | NUR ---
PATIENT GIVEN SUPPOSITORY IN THE EVENING. PATIENT COMPLAINED OF STOMACH CRAMPS AT ONE POINT AND HAS BEEN HAVING SMEARS. PATIENT HAS YET TO HACE ACTUALLY STOOL. PATIENT REPOSITIONED EVERY 2H. CALL LIGHT REMAINS WITH IN REACH.
[2018-11-06 09:01] LABS: International Normalized Ratio 1.79
--- NOTE | 2018-11-06 10:33 | NUR ---
TRANSFER NOTE PT STABLE FOR TRANSFER TO MEDICAL FLOOR. REPORT CALLED TO CHRIS MERRILL ON MEDICAL FLOOR. PT TRANSFERED VIA BED TO MEDICAL FLOOR WITH BELONGINGS. DAUGHTER HERMILO UPDATED ON MOVE TO MEDICAL FLOOR.
--- NOTE | 2018-11-06 11:40 | NUR ---
PT TRANSFERRED TO ROOM 363 FROM PCU 2 BY RN AND LEAD MOBILE DEVELOPER. SLIDE TRANSFERRED TO BED. DID WINCE WITH MOVEMENT OF L ARM. AFTER SETTLED IN BED SHE SMILED AND WAS ABLE TO CARRY ON A SIMPLE CONVERSATION AND ANSWER QUESTIONS.
[2018-11-06] MEDS ORDERED: ALBU90OI INH (14:25)
--- NOTE | 2018-11-06 18:29 | NUR ---
SHIFT SUMMARY FAMILY AT BEDSIDE ASSISTING PT WITH HER SUPPER. HAS HAD NO RESP DISTRESS SINCE ARRIVAL TO FLOOR. DOZING ON AND OFF LISTENING TO MUSIC. MD IN TO SEE PT AND FELT SHE ISN'T READY TO DISCHARGE YET.
[2018-11-07 04:30] LABS: Hematocrit 33.7 % (33.0-51.0); Hemoglobin 10.6 g/dL (11.5-16.0)
[2018-11-07 04:44] LABS: International Normalized Ratio 1.88; Prothrombin Time Results 18.8 Sec (9.7-11.5)
[2018-11-07 04:46] LABS: Albumin, Blood 2.3 g/dL (3.4-5.0); Anion Gap 5 mmol/L (6-16); Blood Urea Nitrogen 67 mg/dL (8-24); Bun/Creatinine Ratio 28.6 (12.0-20.0); CO2, Blood 40 mmol/L (21-32); Calcium, Blood 9.1 mg/dL (8.5-10.1); Chloride, Blood 95 mmol/L (98-108); Creatinine, Blood 2.34 mg/dL (0.40-1.00); Glomerular Filtration Rate 21 (60-); Glucose, Blood 84 mg/dL (70-99); Magnesium, Blood 1.8 mg/dL (1.6-2.4); Phosphorus, Blood 3.4 mg/dL (2.5-4.9); Potassium, Blood 3.7 mmol/L (3.5-5.5); Sodium, Blood 140 mmol/L (136-145)
--- NOTE | 2018-11-07 05:04 | NUR ---
SHIFT SUMMARY: 83 Y/O FEMALE RESTED COMFORTABLY IN BED ALL SHIFT, DENIES PAIN OR NAUSEA, BED ALARM APPLIED, BED LOW POSITION, CALL LIGHT AT SIDE.
--- NOTE | 2018-11-07 11:59 | NUR ---
DISCHARGED TO [facility] VIA [facility]. AFTER BEING CHANGED FOR TRANSPORT PT BECAME QUITE WINDED AND WAS SLOW TO RECOVER. PT WOULD WINCE WHENEVER L ARM WAS MOVED, TYLENOL WAS GIVEN. SMILED WHENEVER SHE INTERACTED WITH STAFF. SPOKE WITH DR. ZARAGOZA ABOUT FISCHER CATHETER PRIOR TO DISCHARGING AND SHE REPORTED TO KEEP IT AND HAVE FACILITY WORK ON BLADDER TRAINING. [facility] HERE TO PICK PT UP AT [phone]-TO [place] VIA [facility].
[2018-11-07] MEDS ORDERED: ALBU2.5V5 INH (19:11)
[2018-11-07] MEDS ORDERED: Bumetanide2 MG PO (19:12)
[2018-11-07] MEDS ORDERED: METO25ER PO (19:13)
[2018-11-07] MEDS ORDERED: WARF3 PO (19:14)
[2018-11-07] MEDS ORDERED: ACET325 PO (19:15)
[2018-11-07] MEDS ORDERED: BISA5EC PO (19:15)
[2018-11-07] MEDS ORDERED: CLOT10 MT (19:16)
[2018-11-07] MEDS ORDERED: DOCU100 PO (19:16)
[2018-11-07] MEDS ORDERED: GABA100 PO (19:17)
[2018-11-07] MEDS ORDERED: LEVFLO500 PO (19:19)
[2018-11-07] MEDS ORDERED: MINERAL OIL PR (19:20)
[2018-11-07] MEDS ORDERED: GAVILAX17 GM PO (19:21)
[2018-11-07] MEDS ORDERED: ONDA4ODT SL (19:21)
[2018-11-07] MEDS ORDERED: Aspercreme 1035.4 GM TOP (19:22)
== END 2018-11-07 11:40 | DRG 871 ==
LOC: ER 20:49 → MEDS 11-01 00:50 → ERHOLD 11-01 00:50 → PCU 11-01 00:50 → MEDS 11-06 10:48 → ENPENDDIS 11-07 09:46 → MEDS 11-07 11:40
PROVIDERS: Emergency Medicine; Family Medicine; Internal Medicine; Internal Medicine Nephrology; Nurse Practitioner Acute Care; Pharmacist; ADMIT Hospitalist
PROC: 5A09357 Assistance with Respiratory Ventilation, Less than 24 Consecutive Hours, Continuous Positive Airway Pressure (ICD-10-PCS; principal; 2018-11-01)
DX: A41.9 Sepsis, unspecified organism (principal); J18.9 Pneumonia, unspecified organism; I50.33 Acute on chronic diastolic (congestive) heart failure; J96.21 Acute and chronic respiratory failure with hypoxia; N17.9 Acute kidney failure, unspecified; B37.0 Candidal stomatitis; J44.0 Chronic obstructive pulmonary disease with (acute) lower respiratory infection; E87.2 Acidosis; R65.20 Severe sepsis without septic shock; R74.0 Nonspecific elevation of levels of transaminase and lactic acid dehydrogenase [LDH]; D63.1 Anemia in chronic kidney disease; I48.2 Chronic atrial fibrillation; N18.3 Chronic kidney disease, stage 3 (moderate); K21.9 Gastro-esophageal reflux disease without esophagitis; F32.9 Major depressive disorder, single episode, unspecified; E88.09 Other disorders of plasma-protein metabolism, not elsewhere classified; D89.2 Hypergammaglobulinemia, unspecified; E86.9 Volume depletion, unspecified; Z66 Do not resuscitate; Z99.81 Dependence on supplemental oxygen; Z88.1 Allergy status to other antibiotic agents; Z88.0 Allergy status to penicillin; Z88.2 Allergy status to sulfonamides; Z88.8 Allergy status to other drugs, medicaments and biological substances
CPT/HCPCS: 36415; 36600; 51702; 71045; 71046; 73120; 74176; 76700; 80053; 80069; 81001; 82803; 83605; 83735; 83880; 84100; 84145; 84484; 85014; 85018; 85025; 85610; 87040; 87086; 93005; 93010; 93306; 94640; 94660; 94760; 94762; 96361; 96365; 96375; 97110; 97162; 97167; 97530; 99285-25; A9270; J0881; J1100; J1940; J1956; J2405; J7030; J7050

== ENCOUNTER 2019-02-26 10:50 | Inpatient (IN) | payer MEDICARE, OTHER ==
[~2019-02-26] VITALS: Ht 170.2 cm; Wt 67.8 kg
[~2019-02-26 10:50] MED LIST changes: +ACET325 PO; +ALBU2.5V5 INH; +ALBU90OI INH; +ALVESCO INH; +Aspercreme 1035.4 GM TOP; +BISA5EC PO; +Bumetanide2 MG PO; +CLOT10 MT; +Coumadin2 MG PO; +DOCU100 PO; +GABA100 PO; +GAVILAX17 GM PO; +MAGNESIUM OXID500 MG PO; +METO2.5 PO; +MINERAL OIL PR; +MIRT15 PO; +OMEPRAZOLE20 MG PO; +ONDA4ODT SL; +POTCHL20ER PO; +TOPROL XL25 MG PO; +Ventolin/Prove6.7 GM INH; +WARF3 PO; +Zocor20 MG PO
[2019-02-26 11:25] LABS: BASOPHILS ABSOLUTE AUTO 0.03 K/mm3 (0.00-0.23); BASOPHILS PERCENT AUTO 0 % (0-2); EOSINOPHILS PERCENT AUTO 0 % (0-6); Hematocrit 33.4 % (33.0-51.0); IMMATURE GRAN ABSOLUTE AUTO 0.05 K/mm3 (0.00-0.10); IMMATURE GRAN PERCENT AUTO 0 % (0-1); LYMPHOCYTES ABSOLUTE AUTO 0.42 K/mm3 (0.84-5.20); LYMPHOCYTES PERCENT AUTO 3 % (21-46); MONOCYTES ABSOLUTE AUTO 2.02 K/mm3 (0.16-1.47); MONOCYTES PERCENT AUTO 15 % (4-13); Mean Corpuscular HGB Conc 29.9 g/dL (31.5-36.5); Mean Corpuscular Volume 90 fL (80-100); Mean Platelet Volume 11.7 fL (9.1-12.4); NEUTROPHILS PERCENT AUTO 82 % (41-73); Platelet Count 216 K/mm3 (150-400); RDW Coefficient Variation 18.5 % (11.7-14.2); RDW Standard Deviation 60.4 fL (35.1-46.3); White Blood Cell Count 13.72 K/mm3 (4.00-11.30)
[2019-02-26 11:47] LABS: Albumin, Blood 2.6 g/dL (3.4-5.0); Albumin/Globulin Ratio 0.5 (0.8-1.8); Bilirubin, Total 1.6 mg/dL (0.1-1.0); Bun/Creatinine Ratio 36.8 (12.0-20.0); Calcium, Blood 9.2 mg/dL (8.5-10.1); Creatinine, Blood 1.44 mg/dL (0.40-1.00); Globulin, Blood 5.7 g/dL (2.2-4.0); Potassium, Blood 5.1 mmol/L (3.5-5.5); Total Protein, Blood 8.3 g/dL (6.4-8.2)
[2019-02-26 13:37] LABS: International Normalized Ratio 1.62; Prothrombin Time Results 16.9 Sec (9.7-11.5)
[2019-02-26] MEDS ORDERED: SPIR50 PO (13:59)
[2019-02-26] MEDS ORDERED: ALVESCO INH (14:00)
[2019-02-26] MEDS ORDERED: CALC.25 PO (14:01)
[2019-02-26] MEDS ORDERED: LANS30EC PO (14:02)
[2019-02-26] MEDS ORDERED: LACTULOSE20 GM/301 PO (14:08)
[2019-02-26 15:36] LABS: Bicarbonate Venous 28.4 mmol/L (24.0-30.0); PO2 Venous 161 mmHg (38-42); pH Blood Venous 7.42 (7.34-7.37)
--- NOTE | 2019-02-26 22:00 | NUR ---
CARE ASSUMPTION ASSUMED CARE OF PT @ APPROX 1900. PT WAKES TO VERBAL STIMULATION W/ TOUCH. PT ABLE TO STATE NAME & , THEN GOES BACK TO SLEEP. REPORT FROM DAY SHIFT NURSE THAT PT HAS BEEN "VERY SLEEPY". MONITOR SHOWS SR, HR 90's, BP 93/52 W/ CARDIZEM GTT INFUSING @ 5 MG/HR VIA PIV. CARDIZEM GTT PLACED ON STANDBY. SPO2 > 92% ON 3L NC. PT NPO UNTIL ST EVAL. EVENING PO MEDICATION HELD PER CLINICAL JUDGMENT D/T PT INABILITY TO STAY AWAKE. WILL CONTINUE TO MONITOR AND PROVIDE CARE.
--- NOTE | 2019-02-27 03:47 | NUR ---
UPDATE PT MORE ALERT, ABLE TO STAY AWAKE AND HAVE CONVERSATION. PT ORIENTED TO SELF, DATE & TIME, LOCATION, AND EVENT. PT DENIES PAIN/DISCOMFORT. PT ABLE TO TELL THIS NURSE HER ATTENDS WAS WET AND NEEDED TO BE CHANGED. WILLIE CARE AND ATTENDS CHANGE DONE W/ PT ABLE TO ROLL SIDE TO SIDE IN BED W/ 1 PERSON ASSISTANCE. BED ALARM ON FOR PT SAFETY. WILL CONTINUE TO MONITOR AND PROVIDE CARE.
[2019-02-27 03:58] LABS: BASOPHILS ABSOLUTE AUTO 0.01 K/mm3 (0.00-0.23); BASOPHILS PERCENT AUTO 0 % (0-2); EOSINOPHILS PERCENT AUTO 0 % (0-6); Hematocrit 30.9 % (33.0-51.0); Hemoglobin 9.1 g/dL (11.5-16.0); IMMATURE GRAN ABSOLUTE AUTO 0.03 K/mm3 (0.00-0.10); IMMATURE GRAN PERCENT AUTO 0 % (0-1); LYMPHOCYTES ABSOLUTE AUTO 0.27 K/mm3 (0.84-5.20); LYMPHOCYTES PERCENT AUTO 3 % (21-46); MONOCYTES ABSOLUTE AUTO 0.47 K/mm3 (0.16-1.47); MONOCYTES PERCENT AUTO 4 % (4-13); Mean Corpuscular HGB 26.6 pg (26.0-34.0); Mean Corpuscular HGB Conc 29.4 g/dL (31.5-36.5); Mean Corpuscular Volume 90 fL (80-100); Mean Platelet Volume 11.8 fL (9.1-12.4); NEUTROPHILS ABSOLUTE AUTO 9.88 K/mm3 (1.96-9.15); NEUTROPHILS PERCENT AUTO 93 % (41-73); Platelet Count 186 K/mm3 (150-400); RDW Coefficient Variation 18.4 % (11.7-14.2); RDW Standard Deviation 61.1 fL (35.1-46.3); Red Blood Cell Count 3.42 M/mm3 (3.80-5.20); White Blood Cell Count 10.66 K/mm3 (4.00-11.30)
[2019-02-27 04:13] LABS: International Normalized Ratio 2.08; Prothrombin Time Results 21.4 Sec (9.7-11.5)
[2019-02-27 04:20] LABS: Albumin, Blood 2.3 g/dL (3.4-5.0); Albumin/Globulin Ratio 0.5 (0.8-1.8); Bilirubin, Total 0.8 mg/dL (0.1-1.0); Bun/Creatinine Ratio 41.1 (12.0-20.0); Calcium, Blood 8.8 mg/dL (8.5-10.1); Creatinine, Blood 1.41 mg/dL (0.40-1.00); Globulin, Blood 4.9 g/dL (2.2-4.0); Phosphorus, Blood 4.1 mg/dL (2.5-4.9); Potassium, Blood 5.1 mmol/L (3.5-5.5); Total Protein, Blood 7.2 g/dL (6.4-8.2)
--- NOTE | 2019-02-27 05:20 | NUR ---
SHIFT SUMMARY PT W/ IMPROVING ALERTNESS. PT A&O X4, ANSWERING ALL Q's APPROPRIATELY THIS AM. MONITOR SHOWS SR, HR 80's-90's. CARDIZEM GTT OFF. VSS. SPO2 > 92% TITRATED FROM 3L NC TO 2L NC THIS SHIFT. PT INCONTINENT, WEARING ATTENDS. PT DENIES PAIN/DISCOMFORT. PT NPO, AWAITING ST EVAL. WILL CONTINUE TO MONITOR AND PROVIDE CARE UNTIL REPORT OFF TO DAY SHIFT RN.
--- NOTE | 2019-02-27 07:15 | NUR ---
BEDSIDE REPORT REC'D FROM JAYME MERRILL. PT A&OX4 WITH SOME EXPECTED DATE DEFICIENCY. ASSESSMENT NOTED. PT WAS IN NSR UPON ARRIVAL TO PCU ON [facility] GTT 02/26/2019 AT 1600 CONFIRMED WITH SIGN LETTERER YADI AT 0800 THIS MORNING. PT HAS NO COMPLAINTS. NO REQUESTS. IS AWARE OF AND CONCERNED FOR MAKING SURE WE CHECK HER BLOOD FOR HER COUMADIN. SHE IS ON 2L NC AT THIS TIME. DENIES ANY CP, SOB, PAIN. NO COUGH NOTED. PT DEMONSTRATES ABILITY TO USE CALL LIGHT, IT IS IN REACH.
[2019-02-27 12:32] LABS: Influenza A Negative (NEGATIVE); Influenza B Negative (NEGATIVE)
--- NOTE | 2019-02-27 15:38 | NUR ---
PT SITTING UP IN CHAIR MOST OF THE DAY. NO REQUESTS, ENCOURAGED TO USE COMMODE 2P ASSIST. TRANSFER WAS BETTER GETTING BACK INTO BED THAN INTO CHAIR, PER SALES FLOOR TEAM LEADER. NO SIG CHANGES THIS SHIFT WHILE IN PCU. REPORT CALLED TO JOSUE DAWSON RN.
[2019-02-27] MEDS ORDERED: ATOR20 PO (16:34)
[2019-02-27] MEDS ORDERED: BISA5EC PO (16:35)
[2019-02-27] MEDS ORDERED: Bumetanide1 MG PO (16:40)
[2019-02-27] MEDS ORDERED: SPIR50 PO (16:41)
[2019-02-27] MEDS ORDERED: ALVESCO INH (16:41)
[2019-02-27] MEDS ORDERED: BISA10S PR (16:43)
[2019-02-27] MEDS ORDERED: Fleet Enema132 ML PR (16:45)
--- NOTE | 2019-02-27 17:27 | NUR ---
PCU 7 TRANSFER TO 341 APPROX 1600. PT IS A/O X3, PLEASANT AFFECT. STATE NO DISCOMFORT @ THIS TIME. ACCOMPANIED TO ROOM BY HER DAUGHTERS WHO HAVE STAYED TO VISIT MOST OF AFTERNOON. HRR @ THIS TIME, 90-100. LS DECREASED T/O, BIOX 98% 2L. BT+, HYPO. ATTENDS CDI. VSS.
--- NOTE | 2019-02-27 23:35 | NUR ---
WHEN CALLING PCU RESPIRATORY THERAPY AIDE RE TELE, PCU TECH SAID NO NOTED ORDER FOR TRANSER OR FOR DISCONTINUING TELE (TELE WAS REMOVED FROM PT BEFORE TRANSFER). CALL PLACED TO SEAMLESS TUBE ROLLER, ORDERS OBTAINED FOR TELE CONTINUANCE ON MED FLOOR AND TO REMAIN N MED FLOOR WHILE STABLE AND TO HAVE AM NURSE F/U WITH PRIMARY MD FOR EVALUAION OF FLOOR STATUS, I.E. TO REMIAIN ON MED OR RETURN TO PCU. WILL F/U WITH AM NURSE. CHARGE NURSE NOTIFIED.
--- NOTE | 2019-02-28 03:57 | NUR ---
HAS BEEN RESTING QUIETLY WITH FEW INTERRUPTIONS THIS SHIFT. MED TELE A FLUTTER. ASYMPTOMATIC. CALL LIGHT IN REACH.
[2019-02-28 05:42] LABS: International Normalized Ratio 3.16; Prothrombin Time Results 31.7 Sec (9.7-11.5)
[2019-02-28] MEDS ORDERED: LEVO750 PO (12:31)
[2019-02-28] MEDS ORDERED: ABAT250V (15:49)
--- NOTE | 2019-02-28 16:46 | NUR ---
DISCHARGE SUMMARY PT DISCHARGED TO [facility]. PT TRANSPORTED BY [facility]. PT LETHARGIC DURING THIS SHIFT. PT'S DAUGHTER STATED THAT THIS WAS NEAR THE PT'S BASELINE. PT COOPERATIVE WITH CARE DURING THIS SHIFT. PT TRANSFERED TO WHEELCHAIR FOR DISCHARGE WITH 2 PERSON ASSIST. IV REMOVED PRIOR TO DISCHARGE. REPORT CALLED TO ISABEL AT [facility].
== END 2019-02-28 16:00 | DRG 871 ==
LOC: ER 10:50 → PCU 13:02 → MEDS 02-27 16:17 → ENPENDDIS 02-28 13:31 → MEDS 02-28 16:00
PROVIDERS: Emergency Medicine; Hospitalist; ADMIT Internal Medicine
DX: A41.9 Sepsis, unspecified organism (principal); J96.01 Acute respiratory failure with hypoxia; I50.33 Acute on chronic diastolic (congestive) heart failure; J18.9 Pneumonia, unspecified organism; N17.9 Acute kidney failure, unspecified; I48.20 Chronic atrial fibrillation, unspecified; J44.0 Chronic obstructive pulmonary disease with (acute) lower respiratory infection; R65.20 Severe sepsis without septic shock; Z66 Do not resuscitate; D63.8 Anemia in other chronic diseases classified elsewhere; R54 Age-related physical debility; K21.9 Gastro-esophageal reflux disease without esophagitis; Z51.5 Encounter for palliative care; Z88.1 Allergy status to other antibiotic agents; Z88.0 Allergy status to penicillin; Z88.2 Allergy status to sulfonamides; Z88.8 Allergy status to other drugs, medicaments and biological substances; Z79.01 Long term (current) use of anticoagulants; Z79.899 Other long term (current) drug therapy
CPT/HCPCS: 36415; 71046; 80053; 82140; 82803; 83605; 83735; 83880; 84100; 84145; 84484; 85025; 85610; 87040; 87804; 92526; 92610; 93005; 93010; 94640; 94644; 94760; 96361; 96365; 96366; 96367; 96375; 99285-25; J1956; J2930; J7030

== ENCOUNTER → 2019-03-19 | Outpatient (CLI) | payer MEDICARE, OTHER ==
[~2019-03-19] MED LIST changes: +ABAT250V; +ATOR20 PO; +BISA10S PR; +Bumetanide1 MG PO; +CALC.25 PO; +Fleet Enema132 ML PR; +LACTULOSE20 GM/301 PO; +LANS30EC PO; +SPIR50 PO
[2019-03-19 10:23] LABS: International Normalized Ratio 1.28; Prothrombin Time Results 13.5 Sec (9.7-11.5)
== END | disposition home or self-care (01) ==
LOC: LAB RH 08:39 → EDSTATUS 15:20 → LAB RH 15:21
DX: Z79.01 Long term (current) use of anticoagulants (principal); Z51.81 Encounter for therapeutic drug level monitoring
CPT/HCPCS: 36415; 85610

== ENCOUNTER → 2019-04-09 | Outpatient (CLI) | payer MEDICARE, OTHER ==
[2019-04-09 10:21] LABS: International Normalized Ratio 1.61; Prothrombin Time Results 16.8 Sec (9.7-11.5)
== END | disposition home or self-care (01) ==
LOC: LAB RH 09:09 → EDSTATUS 14:11
PROVIDERS: Nurse Practitioner Gerontology
DX: I48.91 Unspecified atrial fibrillation (principal)
CPT/HCPCS: 36415; 85610

== ENCOUNTER → 2019-05-01 | Outpatient (CLI) | payer MEDICARE, OTHER ==
[2019-05-01 09:33] LABS: International Normalized Ratio 1.67; Prothrombin Time Results 17.4 Sec (9.7-11.5)
== END | disposition home or self-care (01) ==
LOC: LAB RH 07:50 → EDSTATUS 11:26
PROVIDERS: Family Medicine
DX: I48.91 Unspecified atrial fibrillation (principal)
CPT/HCPCS: 36415; 85610

== ENCOUNTER → 2019-05-08 | Outpatient (CLI) | payer MEDICARE, OTHER ==
[2019-05-08 09:17] LABS: International Normalized Ratio 1.72; Prothrombin Time Results 17.8 Sec (9.7-11.5)
== END | disposition home or self-care (01) ==
LOC: LAB RH 07:34 → EDSTATUS 13:24
DX: I48.91 Unspecified atrial fibrillation (principal)
CPT/HCPCS: 36415; 85610

== ENCOUNTER → 2019-05-10 | Outpatient (CLI) | payer MEDICARE, OTHER | END | disposition home or self-care (01) | LOC: EDSTATUS 13:26 → LAB RH 19:36 | DX: E72.20 Disorder of urea cycle metabolism, unspecified (principal) | CPT/HCPCS: 82140 ==

== ENCOUNTER → 2019-05-24 | Outpatient (CLI) | payer MEDICARE, OTHER ==
[2019-05-24 09:50] LABS: Albumin, Blood 3.1 g/dL (3.4-5.0); Albumin/Globulin Ratio 0.7 (0.8-1.8); Bilirubin, Direct 0.2 mg/dL (0.0-0.3); Calcium, Blood 9.3 mg/dL (8.5-10.1); Creatinine, Blood 1.03 mg/dL (0.40-1.00); Globulin, Blood 4.7 g/dL (2.2-4.0); Phosphorus, Blood 3.1 mg/dL (2.5-4.9); Total Protein, Blood 7.8 g/dL (6.4-8.2)
[2019-05-24 09:54] LABS: Bilirubin, Indirect 0.3 mg/dL (0.1-0.7); Bilirubin, Total 0.5 mg/dL (0.1-1.0)
== END | disposition home or self-care (01) ==
LOC: LAB SHORT 08:35 → LAB 08:35
PROVIDERS: Internal Medicine Nephrology
DX: N18.3 Chronic kidney disease, stage 3 (moderate) (principal); D63.1 Anemia in chronic kidney disease; R76.9 Abnormal immunological finding in serum, unspecified; R94.5 Abnormal results of liver function studies; R94.6 Abnormal results of thyroid function studies
CPT/HCPCS: 80053; 82140; 82248; 84100

== ENCOUNTER → 2019-07-10 | Outpatient (CLI) | payer MEDICARE, OTHER | END | disposition home or self-care (01) | LOC: EDSTATUS 12:55 → LAB RH 16:52 | DX: E72.20 Disorder of urea cycle metabolism, unspecified (principal) | CPT/HCPCS: 82140 ==

== ENCOUNTER → 2019-07-11 | Outpatient (CLI) | payer MEDICARE, OTHER | END | disposition home or self-care (01) | LOC: EDSTATUS 12:57 → LAB RH 15:48 | DX: N18.3 Chronic kidney disease, stage 3 (moderate) (principal) | CPT/HCPCS: 82140 ==

== ENCOUNTER → 2019-07-31 | Outpatient (CLI) | payer MEDICARE, OTHER ==
[2019-07-31 08:39] LABS: BASOPHILS ABSOLUTE AUTO 0.03 K/mm3 (0.00-0.23); BASOPHILS PERCENT AUTO 1 % (0-2); EOSINOPHILS ABSOLUTE AUTO 0.12 K/mm3 (0.00-0.68); EOSINOPHILS PERCENT AUTO 3 % (0-6); Hematocrit 36.9 % (33.0-51.0); IMMATURE GRAN PERCENT AUTO 0 % (0-1); LYMPHOCYTES ABSOLUTE AUTO 0.62 K/mm3 (0.84-5.20); LYMPHOCYTES PERCENT AUTO 17 % (21-46); MONOCYTES ABSOLUTE AUTO 0.61 K/mm3 (0.16-1.47); MONOCYTES PERCENT AUTO 17 % (4-13); Mean Corpuscular HGB 27.3 pg (26.0-34.0); Mean Corpuscular HGB Conc 29.8 g/dL (31.5-36.5); Mean Corpuscular Volume 92 fL (80-100); Mean Platelet Volume 11.2 fL (9.1-12.4); NEUTROPHILS ABSOLUTE AUTO 2.25 K/mm3 (1.96-9.15); NEUTROPHILS PERCENT AUTO 62 % (41-73); Platelet Count 182 K/mm3 (150-400); RDW Coefficient Variation 19.9 % (11.7-14.2); RDW Standard Deviation 67.3 fL (35.1-46.3); Red Blood Cell Count 4.03 M/mm3 (3.80-5.20); White Blood Cell Count 3.63 K/mm3 (4.00-11.30)
[2019-07-31 08:49] LABS: Albumin, Blood 2.8 g/dL (3.4-5.0); Albumin/Globulin Ratio 0.6 (0.8-1.8); Bilirubin, Direct 0.2 mg/dL (0.0-0.3); Bilirubin, Indirect 0.2 mg/dL (0.1-0.7); Bilirubin, Total 0.4 mg/dL (0.1-1.0); Bun/Creatinine Ratio 27.6 (12.0-20.0); Calcium, Blood 8.9 mg/dL (8.5-10.1); Creatinine, Blood 1.34 mg/dL (0.40-1.00); Globulin, Blood 4.4 g/dL (2.2-4.0); Phosphorus, Blood 3.2 mg/dL (2.5-4.9); Potassium, Blood 5.1 mmol/L (3.5-5.5); Total Protein, Blood 7.2 g/dL (6.4-8.2)
== END | disposition home or self-care (01) ==
LOC: LAB 07:30 → LAB SHORT 07:30
PROVIDERS: Internal Medicine Nephrology
DX: N18.3 Chronic kidney disease, stage 3 (moderate) (principal); D63.1 Anemia in chronic kidney disease; R94.5 Abnormal results of liver function studies
CPT/HCPCS: 80053; 82140; 82248; 84100; 85025

== ENCOUNTER → 2019-10-03 | Outpatient (CLI) | payer MEDICARE, OTHER ==
[2019-10-03 07:42] LABS: BASOPHILS ABSOLUTE AUTO 0.03 K/mm3 (0.00-0.23); BASOPHILS PERCENT AUTO 1 % (0-2); EOSINOPHILS ABSOLUTE AUTO 0.08 K/mm3 (0.00-0.68); EOSINOPHILS PERCENT AUTO 2 % (0-6); Hemoglobin 10.8 g/dL (11.5-16.0); IMMATURE GRAN ABSOLUTE AUTO 0.02 K/mm3 (0.00-0.10); IMMATURE GRAN PERCENT AUTO 1 % (0-1); LYMPHOCYTES ABSOLUTE AUTO 0.74 K/mm3 (0.84-5.20); LYMPHOCYTES PERCENT AUTO 20 % (21-46); MONOCYTES PERCENT AUTO 16 % (4-13); Mean Corpuscular HGB 29.3 pg (26.0-34.0); Mean Corpuscular Volume 98 fL (80-100); Mean Platelet Volume 10.4 fL (9.1-12.4); NEUTROPHILS ABSOLUTE AUTO 2.21 K/mm3 (1.96-9.15); NEUTROPHILS PERCENT AUTO 60 % (41-73); Platelet Count 180 K/mm3 (150-400); RDW Coefficient Variation 18.2 % (11.7-14.2); RDW Standard Deviation 64.7 fL (35.1-46.3); Red Blood Cell Count 3.69 M/mm3 (3.80-5.20); White Blood Cell Count 3.68 K/mm3 (4.00-11.30)
[2019-10-03 08:09] LABS: Alanine Aminotransfer (ALT/SGP 22 U/L (12-78); Albumin/Globulin Ratio 0.6 (0.8-1.8); Alk Phos 197 U/L (50-136); Anion Gap 2 mmol/L (6-16); Aspartate Aminotrans (AST/SGOT 27 U/L (12-37); Bilirubin, Direct 0.2 mg/dL (0.0-0.3); Bilirubin, Indirect 0.3 mg/dL (0.1-0.7); Bilirubin, Total 0.5 mg/dL (0.1-1.0); Blood Urea Nitrogen 44 mg/dL (8-24); Bun/Creatinine Ratio 25.7 (12.0-20.0); CO2, Blood 33 mmol/L (21-32); Calcium, Blood 8.6 mg/dL (8.5-10.1); Chloride, Blood 105 mmol/L (98-108); Creatinine, Blood 1.71 mg/dL (0.40-1.00); Globulin, Blood 4.9 g/dL (2.2-4.0); Glomerular Filtration Rate 30 (60-); Glucose, Blood 79 mg/dL (70-99); Phosphorus, Blood 3.1 mg/dL (2.5-4.9); Potassium, Blood 4.3 mmol/L (3.5-5.5); Sodium, Blood 140 mmol/L (136-145); Total Protein, Blood 7.9 g/dL (6.4-8.2)
== END | disposition home or self-care (01) ==
LOC: LAB RH 07:34 → LAB SHORT 07:34 → EDSTATUS 09:43
PROVIDERS: Family Medicine
DX: N18.3 Chronic kidney disease, stage 3 (moderate) (principal); D63.1 Anemia in chronic kidney disease; N25.81 Secondary hyperparathyroidism of renal origin; E55.9 Vitamin D deficiency, unspecified; E78.00 Pure hypercholesterolemia, unspecified; R76.9 Abnormal immunological finding in serum, unspecified; R94.5 Abnormal results of liver function studies; R94.6 Abnormal results of thyroid function studies
CPT/HCPCS: 80053; 82140; 82248; 84100; 85025

== ENCOUNTER → 2019-10-05 | Outpatient (CLI) | payer MEDICARE, OTHER ==
[2019-10-05 08:16] LABS: Albumin/Globulin Ratio 0.6 (0.8-1.8); Bilirubin, Direct 0.2 mg/dL (0.0-0.3); Bilirubin, Indirect 0.3 mg/dL (0.1-0.7); Bilirubin, Total 0.5 mg/dL (0.1-1.0); Bun/Creatinine Ratio 26.8 (12.0-20.0); Calcium, Blood 9.2 mg/dL (8.5-10.1); Creatinine, Blood 1.64 mg/dL (0.40-1.00); Globulin, Blood 4.7 g/dL (2.2-4.0); Phosphorus, Blood 3.1 mg/dL (2.5-4.9); Potassium, Blood 4.2 mmol/L (3.5-5.5); Total Protein, Blood 7.7 g/dL (6.4-8.2)
== END | disposition home or self-care (01) ==
LOC: LAB RH 07:56 → EDSTATUS 15:28
PROVIDERS: Internal Medicine Nephrology
DX: N18.3 Chronic kidney disease, stage 3 (moderate) (principal); D63.1 Anemia in chronic kidney disease; N25.81 Secondary hyperparathyroidism of renal origin; E78.00 Pure hypercholesterolemia, unspecified; E55.9 Vitamin D deficiency, unspecified; R76.9 Abnormal immunological finding in serum, unspecified; R94.5 Abnormal results of liver function studies; R94.6 Abnormal results of thyroid function studies
CPT/HCPCS: 80053; 82140; 82248; 84100

== ENCOUNTER → 2019-10-08 | Outpatient (CLI) | payer MEDICARE, OTHER | END | disposition home or self-care (01) | LOC: LAB RH 08:06 → EDSTATUS 15:29 | DX: E72.20 Disorder of urea cycle metabolism, unspecified (principal) | CPT/HCPCS: 82140 ==

== ENCOUNTER → 2019-10-11 | Outpatient (CLI) | payer MEDICARE, OTHER | END | disposition home or self-care (01) | LOC: LAB RH 08:01 → EDSTATUS 15:30 | DX: E72.20 Disorder of urea cycle metabolism, unspecified (principal) | CPT/HCPCS: 82140 ==

== ENCOUNTER → 2019-10-15 | Outpatient (CLI) | payer MEDICARE, OTHER | END | disposition home or self-care (01) | LOC: LAB RH 08:00 → EDSTATUS 15:32 | DX: E72.29 Other disorders of urea cycle metabolism (principal) | CPT/HCPCS: 82140 ==

== ENCOUNTER → 2019-10-24 | Outpatient (CLI) | payer MEDICARE, OTHER ==
[2019-10-24 11:10] LABS: Albumin/Globulin Ratio 0.6 (0.8-1.8); Bilirubin, Direct 0.3 mg/dL (0.0-0.3); Bilirubin, Indirect 0.2 mg/dL (0.1-0.7); Bilirubin, Total 0.5 mg/dL (0.1-1.0); Bun/Creatinine Ratio 30.9 (12.0-20.0); Creatinine, Blood 1.81 mg/dL (0.40-1.00); Phosphorus, Blood 4.3 mg/dL (2.5-4.9); Potassium, Blood 4.4 mmol/L (3.5-5.5)
== END | disposition home or self-care (01) ==
LOC: LAB SHORT 10:11 → LAB 10:11
PROVIDERS: Internal Medicine Nephrology
DX: N18.3 Chronic kidney disease, stage 3 (moderate) (principal); D63.1 Anemia in chronic kidney disease
CPT/HCPCS: 80053; 82140; 82248; 84100

== ENCOUNTER → 2019-11-13 | Outpatient (CLI) | payer MEDICARE, OTHER | END | disposition home or self-care (01) | LOC: LAB RH 08:02 → EDSTATUS 11:05 | DX: N18.3 Chronic kidney disease, stage 3 (moderate) (principal) | CPT/HCPCS: 87493 ==

== ENCOUNTER 2019-11-14 15:29 | Emergency (ER) | payer MEDICARE, OTHER | END 2019-11-14 17:29 | disposition home or self-care (01) | LOC: ER 15:29 | DX: E86.0 Dehydration (principal); I10 Essential (primary) hypertension; I48.91 Unspecified atrial fibrillation; N19 Unspecified kidney failure; R41.82 Altered mental status, unspecified; Z88.2 Allergy status to sulfonamides; Z88.0 Allergy status to penicillin; Z88.1 Allergy status to other antibiotic agents; Z79.899 Other long term (current) drug therapy; Z79.01 Long term (current) use of anticoagulants ==

== ENCOUNTER → 2019-11-14 | Outpatient (CLI) | payer MEDICARE, OTHER | END | disposition home or self-care (01) | LOC: EDSTATUS 11:07 → LAB RH 13:55 | DX: E72.20 Disorder of urea cycle metabolism, unspecified (principal) | CPT/HCPCS: 82140 ==

== ENCOUNTER → 2019-11-16 | Outpatient (CLI) | payer MEDICARE, OTHER | END | disposition home or self-care (01) | LOC: LAB RH 07:46 → EDSTATUS 13:59 | DX: E72.29 Other disorders of urea cycle metabolism (principal) | CPT/HCPCS: 82140 ==

== ENCOUNTER → 2019-11-19 | Outpatient (CLI) | payer MEDICARE, OTHER | END | disposition home or self-care (01) | LOC: LAB RH 07:57 → EDSTATUS 14:01 | DX: E72.29 Other disorders of urea cycle metabolism (principal) | CPT/HCPCS: 82140 ==

== ENCOUNTER → 2019-12-05 | Outpatient (CLI) | payer MEDICARE, OTHER ==
[2019-12-05 10:22] LABS: Albumin, Blood 3.1 g/dL (3.4-5.0); Albumin/Globulin Ratio 0.6 (0.8-1.8); Bilirubin, Direct 0.3 mg/dL (0.0-0.3); Bilirubin, Indirect 0.3 mg/dL (0.1-0.7); Bilirubin, Total 0.6 mg/dL (0.1-1.0); Bun/Creatinine Ratio 33.5 (12.0-20.0); Calcium, Blood 9.1 mg/dL (8.5-10.1); Creatinine, Blood 1.55 mg/dL (0.40-1.00); Globulin, Blood 5.2 g/dL (2.2-4.0); Total Protein, Blood 8.3 g/dL (6.4-8.2)
== END | disposition home or self-care (01) ==
LOC: EDSTATUS 09:15 → LAB RH 09:56
PROVIDERS: Family Medicine
DX: N18.30 Chronic kidney disease, stage 3 unspecified (principal)
CPT/HCPCS: 80053; 82140; 82248; 84100; 85018

== ENCOUNTER → 2019-12-07 | Outpatient (CLI) | payer MEDICARE, OTHER ==
[2019-12-07 12:47] LABS: BASOPHILS ABSOLUTE AUTO 0.03 K/mm3 (0.00-0.23); BASOPHILS PERCENT AUTO 0 % (0-2); EOSINOPHILS PERCENT AUTO 0 % (0-6); Hematocrit 36.2 % (33.0-51.0); Hemoglobin 11.1 g/dL (11.5-16.0); IMMATURE GRAN ABSOLUTE AUTO 0.02 K/mm3 (0.00-0.10); IMMATURE GRAN PERCENT AUTO 0 % (0-1); LYMPHOCYTES PERCENT AUTO 5 % (21-46); MONOCYTES ABSOLUTE AUTO 0.94 K/mm3 (0.16-1.47); MONOCYTES PERCENT AUTO 12 % (4-13); Mean Corpuscular HGB 30.3 pg (26.0-34.0); Mean Corpuscular HGB Conc 30.7 g/dL (31.5-36.5); Mean Corpuscular Volume 99 fL (80-100); Mean Platelet Volume 11.8 fL (9.1-12.4); NEUTROPHILS ABSOLUTE AUTO 6.71 K/mm3 (1.96-9.15); NEUTROPHILS PERCENT AUTO 83 % (41-73); Platelet Count 185 K/mm3 (150-400); RDW Coefficient Variation 15.3 % (11.7-14.2); RDW Standard Deviation 56.1 fL (35.1-46.3); Red Blood Cell Count 3.66 M/mm3 (3.80-5.20)
[2019-12-07 13:03] LABS: Albumin, Blood 2.6 g/dL (3.4-5.0); Albumin/Globulin Ratio 0.5 (0.8-1.8); Bilirubin, Total 1.1 mg/dL (0.1-1.0); Calcium, Blood 9.3 mg/dL (8.5-10.1); Creatinine, Blood 1.91 mg/dL (0.40-1.00); Potassium, Blood 5.4 mmol/L (3.5-5.5); Total Protein, Blood 7.6 g/dL (6.4-8.2)
== END | disposition home or self-care (01) ==
LOC: LAB RH 12:38 → EDSTATUS 14:05
PROVIDERS: Family Medicine
DX: E72.29 Other disorders of urea cycle metabolism (principal)
CPT/HCPCS: 80053; 82140; 85025

== ENCOUNTER → 2019-12-13 | Outpatient (CLI) | payer MEDICARE, OTHER ==
[2019-12-13 10:26] LABS: Prothrombin Time Results 47.4 Sec (9.7-11.5)
[2019-12-13 10:30] LABS: International Normalized Ratio 4.84
== END | disposition home or self-care (01) ==
LOC: LAB 09:47 → LAB SHORT 09:47
PROVIDERS: Family Medicine
DX: I48.91 Unspecified atrial fibrillation (principal)
CPT/HCPCS: 85610

== ENCOUNTER 2020-01-01 08:51 | Day surgery (SDC) | payer MEDICARE, OTHER | END 2020-01-01 10:30 | disposition home or self-care (01) | LOC: ORSCSDS 08:51 | DX: H25.12 Age-related nuclear cataract, left eye (principal); Z53.9 Procedure and treatment not carried out, unspecified reason | CPT/HCPCS: J2001; J2250; J3010; J3301; J7040 ==

== ENCOUNTER → 2020-01-21 | Outpatient (CLI) | payer MEDICARE, OTHER ==
[~2020-01-21] MED LIST changes: +ALVESCO6.1 GM INH; +BUME2; +CALCITRIOL PO; +RIFA550T2 PO; +[UNRECOGNIZED DRUG - CODE] PO
== END | disposition home or self-care (01) ==
LOC: LAB RH 11:51
DX: E87.5 Hyperkalemia (principal)
CPT/HCPCS: 84132

== ENCOUNTER → 2020-01-22 | Outpatient (CLI) | payer MEDICARE, OTHER ==
[2020-01-22 13:28] LABS: International Normalized Ratio 1.65; Prothrombin Time Results 17.2 Sec (9.7-11.5)
== END | disposition home or self-care (01) ==
LOC: LAB RH 11:50
PROVIDERS: Family Medicine
DX: I48.91 Unspecified atrial fibrillation (principal)
CPT/HCPCS: 85610

== ENCOUNTER 2020-01-29 07:33 | Day surgery (SDC) | payer MEDICARE, OTHER ==
[~2020-01-29] VITALS: Ht 170.2 cm; Wt 77.2 kg
[~2020-01-29 07:33] MED LIST changes: -ALVESCO6.1 GM INH; -BUME2; -CALCITRIOL PO; -RIFA550T2 PO; -[UNRECOGNIZED DRUG - CODE] PO
[2020-01-29] MEDS ORDERED: RIFA550T2 PO (08:43)
== END 2020-01-29 10:15 | disposition home or self-care (01) ==
LOC: ORSCSDS 07:33
PROVIDERS: Ophthalmology
PROC: 08RK3JZ Replacement of Left Lens with Synthetic Substitute, Percutaneous Approach (ICD-10-PCS; principal; 2020-01-29 09:15)
DX: H25.12 Age-related nuclear cataract, left eye (principal); I10 Essential (primary) hypertension; N18.9 Chronic kidney disease, unspecified; I50.9 Heart failure, unspecified; Z79.01 Long term (current) use of anticoagulants; Z79.899 Other long term (current) drug therapy
CPT/HCPCS: J2001; J2250; J3010; J3301; J7040; V2632

== ENCOUNTER → 2020-01-30 | Outpatient (CLI) | payer MEDICARE, OTHER ==
[~2020-01-30] MED LIST changes: +ALVESCO6.1 GM INH; +BUME2; +CALCITRIOL PO; +RIFA550T2 PO; +[UNRECOGNIZED DRUG - CODE] PO
== END | disposition home or self-care (01) ==
LOC: LAB RH 07:46
DX: E87.5 Hyperkalemia (principal)
CPT/HCPCS: 84132

== ENCOUNTER → 2020-02-06 | Outpatient (CLI) | payer MEDICARE, OTHER | END | disposition home or self-care (01) | LOC: LAB RH 06:50 | DX: E87.5 Hyperkalemia (principal) | CPT/HCPCS: 84132 ==

== ENCOUNTER → 2020-02-11 | Outpatient (CLI) | payer MEDICARE, OTHER | END | disposition home or self-care (01) | LOC: LAB RH 08:34 | DX: E87.5 Hyperkalemia (principal) | CPT/HCPCS: 84132 ==

== ENCOUNTER → 2020-02-12 | Outpatient (CLI) | payer MEDICARE, OTHER ==
[2020-02-12 07:59] LABS: Albumin, Blood 2.8 g/dL (3.4-5.0); Albumin/Globulin Ratio 0.6 (0.8-1.8); Bilirubin, Total 0.6 mg/dL (0.1-1.0); Bun/Creatinine Ratio 25.4 (12.0-20.0); Creatinine, Blood 1.3 mg/dL (0.40-1.00); Globulin, Blood 4.9 g/dL (2.2-4.0); Total Protein, Blood 7.7 g/dL (6.4-8.2)
== END | disposition home or self-care (01) ==
LOC: LAB RH 07:14
PROVIDERS: Family Medicine
DX: E72.20 Disorder of urea cycle metabolism, unspecified (principal)
CPT/HCPCS: 80053; 82140

== ENCOUNTER → 2020-02-18 | Outpatient (CLI) | payer MEDICARE, OTHER | END | disposition home or self-care (01) | LOC: LAB RH 08:29 | DX: E87.6 Hypokalemia (principal) | CPT/HCPCS: 84132 ==

== ENCOUNTER → 2020-02-19 | Outpatient (CLI) | payer MEDICARE, OTHER | END | disposition home or self-care (01) | LOC: LAB RH 08:00 | DX: E87.6 Hypokalemia (principal) | CPT/HCPCS: 84132 ==

== ENCOUNTER → 2020-02-22 | Outpatient (CLI) | payer MEDICARE, OTHER | END | disposition home or self-care (01) | LOC: LAB RH 07:00 | DX: N18.30 Chronic kidney disease, stage 3 unspecified (principal) | CPT/HCPCS: 84132 ==

== ENCOUNTER 2020-02-26 07:30 | Day surgery (SDC) | payer MEDICARE, OTHER ==
[~2020-02-26] VITALS: Ht 170.2 cm; Wt 77.3 kg
--- NOTE | 2020-02-26 09:32 | NUR ---
02/26/20 0932 Katherine Isaacs PT TRANSFERED WELL FROM BED TO . PT AWAKE, ALERT, ORIENTED. PT SMILING WHILE CONVERSING. PT TOLERATED WATER WELL. VS WNL. [facility] WILL BE TAKING PT HOME.
== END 2020-02-26 09:34 | disposition home or self-care (01) ==
LOC: ORSCSDS 07:30
PROVIDERS: Ophthalmology
PROC: 08RJ3JZ Replacement of Right Lens with Synthetic Substitute, Percutaneous Approach (ICD-10-PCS; principal; 2020-02-26 08:45)
DX: H25.11 Age-related nuclear cataract, right eye (principal); I10 Essential (primary) hypertension; K72.90 Hepatic failure, unspecified without coma; J44.9 Chronic obstructive pulmonary disease, unspecified; J45.909 Unspecified asthma, uncomplicated
CPT/HCPCS: J2001; J2250; J3010; J3301; J7040; V2632

== ENCOUNTER → 2020-02-27 | Outpatient (CLI) | payer MEDICARE, OTHER ==
[2020-02-27 12:21] LABS: Albumin, Blood 2.8 g/dL (3.4-5.0); Albumin/Globulin Ratio 0.5 (0.8-1.8); Bilirubin, Total 1.1 mg/dL (0.1-1.0); Calcium, Blood 8.8 mg/dL (8.5-10.1); Creatinine, Blood 1.26 mg/dL (0.40-1.00); Globulin, Blood 5.3 g/dL (2.2-4.0); Total Protein, Blood 8.1 g/dL (6.4-8.2)
== END | disposition home or self-care (01) ==
LOC: LAB RH 11:46
PROVIDERS: Internal Medicine Nephrology
DX: N18.30 Chronic kidney disease, stage 3 unspecified (principal)
CPT/HCPCS: 80053; 82140

== ENCOUNTER → 2020-03-05 | Outpatient (CLI) | payer MEDICARE, OTHER ==
[2020-03-05 09:57] LABS: Albumin, Blood 2.8 g/dL (3.4-5.0); Anion Gap 4 mmol/L (6-16); BASOPHILS ABSOLUTE AUTO 0.05 K/mm3 (0.00-0.23); BASOPHILS PERCENT AUTO 1 % (0-2); Blood Urea Nitrogen 33 mg/dL (8-24); Bun/Creatinine Ratio 25.2 (12.0-20.0); CO2, Blood 35 mmol/L (21-32); Calcium, Blood 9.2 mg/dL (8.5-10.1); Chloride, Blood 102 mmol/L (98-108); Creatinine, Blood 1.31 mg/dL (0.40-1.00); EOSINOPHILS ABSOLUTE AUTO 0.14 K/mm3 (0.00-0.68); EOSINOPHILS PERCENT AUTO 2 % (0-6); Glomerular Filtration Rate 41 (60-); Glucose, Blood 121 mg/dL (70-99); Hematocrit 38.2 % (33.0-51.0); Hemoglobin 11.2 g/dL (11.5-16.0); IMMATURE GRAN PERCENT AUTO 0 % (0-1); LYMPHOCYTES PERCENT AUTO 18 % (21-46); MONOCYTES PERCENT AUTO 11 % (4-13); Magnesium, Blood 2.2 mg/dL (1.6-2.4); Mean Corpuscular HGB 29.8 pg (26.0-34.0); Mean Corpuscular HGB Conc 29.3 g/dL (31.5-36.5); Mean Corpuscular Volume 102 fL (80-100); Mean Platelet Volume 11.1 fL (9.1-12.4); NEUTROPHILS ABSOLUTE AUTO 3.94 K/mm3 (1.96-9.15); NEUTROPHILS PERCENT AUTO 69 % (41-73); Phosphorus, Blood 3.2 mg/dL (2.5-4.9); Platelet Count 272 K/mm3 (150-400); Potassium, Blood 3.9 mmol/L (3.5-5.5); RDW Coefficient Variation 14.6 % (11.7-14.2); RDW Standard Deviation 54.4 fL (35.1-46.3); Red Blood Cell Count 3.76 M/mm3 (3.80-5.20); Sodium, Blood 141 mmol/L (136-145); White Blood Cell Count 5.73 K/mm3 (4.00-11.30)
== END | disposition home or self-care (01) ==
LOC: LAB RH 09:34
PROVIDERS: Family Medicine
DX: N18.30 Chronic kidney disease, stage 3 unspecified (principal)
CPT/HCPCS: 80069; 82140; 83036; 83735; 83970; 85025

== ENCOUNTER → 2020-03-11 | Outpatient (CLI) | payer MEDICARE, OTHER ==
[2020-03-11 10:22] LABS: International Normalized Ratio 2.14; Prothrombin Time Results 21.9 Sec (9.7-11.5)
[2020-03-11 10:42] LABS: Albumin, Blood 2.7 g/dL (3.4-5.0); Albumin/Globulin Ratio 0.5 (0.8-1.8); Bilirubin, Total 0.6 mg/dL (0.1-1.0); Bun/Creatinine Ratio 27.1 (12.0-20.0); Calcium, Blood 9.2 mg/dL (8.5-10.1); Creatinine, Blood 1.29 mg/dL (0.40-1.00); Globulin, Blood 5.2 g/dL (2.2-4.0); Potassium, Blood 4.3 mmol/L (3.5-5.5); Total Protein, Blood 7.9 g/dL (6.4-8.2)
== END | disposition home or self-care (01) ==
LOC: LAB RH 09:59
PROVIDERS: Family Medicine
DX: I48.91 Unspecified atrial fibrillation (principal); N18.30 Chronic kidney disease, stage 3 unspecified; J96.21 Acute and chronic respiratory failure with hypoxia; I50.32 Chronic diastolic (congestive) heart failure
CPT/HCPCS: 80053; 82140; 85610

== ENCOUNTER → 2020-03-25 | Outpatient (CLI) | payer MEDICARE, OTHER ==
[2020-03-25 08:19] LABS: Albumin, Blood 2.7 g/dL (3.4-5.0); Albumin/Globulin Ratio 0.5 (0.8-1.8); Bilirubin, Total 0.6 mg/dL (0.1-1.0); Bun/Creatinine Ratio 27.9 (12.0-20.0); Calcium, Blood 8.7 mg/dL (8.5-10.1); Creatinine, Blood 1.29 mg/dL (0.40-1.00); Globulin, Blood 5.4 g/dL (2.2-4.0); Potassium, Blood 4.1 mmol/L (3.5-5.5); Total Protein, Blood 8.1 g/dL (6.4-8.2)
[2020-03-25 12:49] LABS: International Normalized Ratio 2.1; Prothrombin Time Results 21.5 Sec (9.7-11.5)
== END | disposition home or self-care (01) ==
LOC: LAB RH 07:58 → EDSTATUS 11:26
PROVIDERS: Family Medicine
DX: E72.20 Disorder of urea cycle metabolism, unspecified (principal); I48.91 Unspecified atrial fibrillation
CPT/HCPCS: 80053; 82140; 85610

== ENCOUNTER → 2020-04-07 | Outpatient (CLI) | payer MEDICARE, OTHER ==
[2020-04-07 08:45] LABS: BASOPHILS ABSOLUTE AUTO 0.05 K/mm3 (0.00-0.23); BASOPHILS PERCENT AUTO 1 % (0-2); EOSINOPHILS ABSOLUTE AUTO 0.12 K/mm3 (0.00-0.68); EOSINOPHILS PERCENT AUTO 2 % (0-6); Hematocrit 36.4 % (33.0-51.0); Hemoglobin 10.8 g/dL (11.5-16.0); IMMATURE GRAN ABSOLUTE AUTO 0.02 K/mm3 (0.00-0.10); IMMATURE GRAN PERCENT AUTO 0 % (0-1); LYMPHOCYTES ABSOLUTE AUTO 0.82 K/mm3 (0.84-5.20); LYMPHOCYTES PERCENT AUTO 16 % (21-46); MONOCYTES ABSOLUTE AUTO 0.75 K/mm3 (0.16-1.47); MONOCYTES PERCENT AUTO 15 % (4-13); Mean Corpuscular HGB 28.9 pg (26.0-34.0); Mean Corpuscular HGB Conc 29.7 g/dL (31.5-36.5); Mean Corpuscular Volume 97 fL (80-100); Mean Platelet Volume 11.7 fL (9.1-12.4); NEUTROPHILS ABSOLUTE AUTO 3.24 K/mm3 (1.96-9.15); NEUTROPHILS PERCENT AUTO 65 % (41-73); Platelet Count 214 K/mm3 (150-400); RDW Coefficient Variation 14.3 % (11.7-14.2); RDW Standard Deviation 50.6 fL (35.1-46.3); Red Blood Cell Count 3.74 M/mm3 (3.80-5.20)
[2020-04-07 08:50] LABS: Albumin, Blood 2.6 g/dL (3.4-5.0); Anion Gap 3 mmol/L (6-16); Blood Urea Nitrogen 36 mg/dL (8-24); Bun/Creatinine Ratio 25.7 (12.0-20.0); CO2, Blood 37 mmol/L (21-32); Calcium, Blood 9.3 mg/dL (8.5-10.1); Chloride, Blood 100 mmol/L (98-108); Glomerular Filtration Rate 38 (60-); Glucose, Blood 77 mg/dL (70-99); Magnesium, Blood 2.1 mg/dL (1.6-2.4); Phosphorus, Blood 3.3 mg/dL (2.5-4.9); Potassium, Blood 4.4 mmol/L (3.5-5.5); Sodium, Blood 140 mmol/L (136-145)
== END | disposition home or self-care (01) ==
LOC: PLD 07:40 → LAB SHORT 07:40
PROVIDERS: Internal Medicine Nephrology
DX: N18.30 Chronic kidney disease, stage 3 unspecified (principal); D63.1 Anemia in chronic kidney disease; N25.81 Secondary hyperparathyroidism of renal origin; E78.00 Pure hypercholesterolemia, unspecified; E55.9 Vitamin D deficiency, unspecified; G60.9 Hereditary and idiopathic neuropathy, unspecified; R76.9 Abnormal immunological finding in serum, unspecified; R94.5 Abnormal results of liver function studies; R73.09 Other abnormal glucose
CPT/HCPCS: 80069; 82140; 83036; 83735; 83970; 85025

== ENCOUNTER → 2020-04-14 | Outpatient (CLI) | payer MEDICARE, OTHER ==
[2020-04-14 11:54] LABS: Albumin, Blood 2.8 g/dL (3.4-5.0); Anion Gap 2 mmol/L (6-16); Blood Urea Nitrogen 39 mg/dL (8-24); Bun/Creatinine Ratio 26.9 (12.0-20.0); CO2, Blood 37 mmol/L (21-32); Calcium, Blood 9.2 mg/dL (8.5-10.1); Chloride, Blood 99 mmol/L (98-108); Creatinine, Blood 1.45 mg/dL (0.40-1.00); Glomerular Filtration Rate 37 (60-); Glucose, Blood 134 mg/dL (70-99); Phosphorus, Blood 3.3 mg/dL (2.5-4.9); Potassium, Blood 3.8 mmol/L (3.5-5.5); Sodium, Blood 138 mmol/L (136-145)
== END | disposition home or self-care (01) ==
LOC: LAB RH 06:55 → EDSTATUS 13:46
PROVIDERS: Internal Medicine Nephrology
DX: N18.32 Chronic kidney disease, stage 3b (principal)
CPT/HCPCS: 80069

== ENCOUNTER → 2020-04-22 | Outpatient (CLI) | payer MEDICARE, OTHER ==
[2020-04-22 10:37] LABS: International Normalized Ratio 2.26; Prothrombin Time Results 23.1 Sec (9.7-11.5)
[2020-04-22 10:45] LABS: Albumin, Blood 2.7 g/dL (3.4-5.0); Albumin/Globulin Ratio 0.5 (0.8-1.8); Bilirubin, Total 0.7 mg/dL (0.1-1.0); Bun/Creatinine Ratio 29.3 (12.0-20.0); Calcium, Blood 9.2 mg/dL (8.5-10.1); Creatinine, Blood 1.5 mg/dL (0.40-1.00); Globulin, Blood 5.2 g/dL (2.2-4.0); Total Protein, Blood 7.9 g/dL (6.4-8.2)
== END | disposition home or self-care (01) ==
LOC: LAB RH 10:15 → EDSTATUS 13:47
PROVIDERS: Family Medicine
DX: I48.91 Unspecified atrial fibrillation (principal); E72.20 Disorder of urea cycle metabolism, unspecified; N18.2 Chronic kidney disease, stage 2 (mild)
CPT/HCPCS: 80053; 82140; 85610

== ENCOUNTER → 2020-05-06 | Outpatient (CLI) | payer MEDICARE, OTHER ==
[2020-05-06 08:31] LABS: International Normalized Ratio 1.97; Prothrombin Time Results 20.3 Sec (9.7-11.5)
[2020-05-06 08:40] LABS: Albumin, Blood 2.8 g/dL (3.4-5.0); Albumin/Globulin Ratio 0.5 (0.8-1.8); Bilirubin, Total 0.6 mg/dL (0.1-1.0); Bun/Creatinine Ratio 26.9 (12.0-20.0); Creatinine, Blood 1.45 mg/dL (0.40-1.00); Globulin, Blood 5.3 g/dL (2.2-4.0); Potassium, Blood 3.6 mmol/L (3.5-5.5); Total Protein, Blood 8.1 g/dL (6.4-8.2)
== END | disposition home or self-care (01) ==
LOC: LAB UVN 08:08 → LAB RH 08:08 → EDSTATUS 13:49
PROVIDERS: Family Medicine
DX: I48.91 Unspecified atrial fibrillation (principal); N18.32 Chronic kidney disease, stage 3b
CPT/HCPCS: 80053; 82140; 85610

== ENCOUNTER → 2020-05-18 | Outpatient (CLI) | payer MEDICARE, OTHER ==
[2020-05-18 09:54] LABS: BASOPHILS ABSOLUTE AUTO 0.02 K/mm3 (0.00-0.23); BASOPHILS PERCENT AUTO 0 % (0-2); EOSINOPHILS ABSOLUTE AUTO 0.01 K/mm3 (0.00-0.68); EOSINOPHILS PERCENT AUTO 0 % (0-6); Hematocrit 30.7 % (33.0-51.0); Hemoglobin 9.3 g/dL (11.5-16.0); IMMATURE GRAN ABSOLUTE AUTO 0.03 K/mm3 (0.00-0.10); IMMATURE GRAN PERCENT AUTO 0 % (0-1); LYMPHOCYTES ABSOLUTE AUTO 0.44 K/mm3 (0.84-5.20); LYMPHOCYTES PERCENT AUTO 6 % (21-46); MONOCYTES ABSOLUTE AUTO 1.14 K/mm3 (0.16-1.47); MONOCYTES PERCENT AUTO 15 % (4-13); Mean Corpuscular HGB 29.2 pg (26.0-34.0); Mean Corpuscular HGB Conc 30.3 g/dL (31.5-36.5); Mean Corpuscular Volume 96 fL (80-100); Mean Platelet Volume 11.6 fL (9.1-12.4); NEUTROPHILS ABSOLUTE AUTO 5.78 K/mm3 (1.96-9.15); NEUTROPHILS PERCENT AUTO 78 % (41-73); Platelet Count 160 K/mm3 (150-400); RDW Coefficient Variation 16.5 % (11.7-14.2); RDW Standard Deviation 57.8 fL (35.1-46.3); Red Blood Cell Count 3.19 M/mm3 (3.80-5.20); White Blood Cell Count 7.42 K/mm3 (4.00-11.30)
[2020-05-18 17:26] LABS: Albumin, Blood 2.6 g/dL (3.4-5.0); Albumin/Globulin Ratio 0.5 (0.8-1.8); Bilirubin, Total 1.1 mg/dL (0.1-1.0); Bun/Creatinine Ratio 20.1 (12.0-20.0); Calcium, Blood 8.4 mg/dL (8.5-10.1); Creatinine, Blood 1.59 mg/dL (0.40-1.00); Potassium, Blood 4.5 mmol/L (3.5-5.5); Total Protein, Blood 7.6 g/dL (6.4-8.2)
== END | disposition home or self-care (01) ==
LOC: LAB RH 09:46 → EDSTATUS 09:57
PROVIDERS: Internal Medicine
DX: I10 Essential (primary) hypertension (principal); E72.20 Disorder of urea cycle metabolism, unspecified
CPT/HCPCS: 80053; 85025

== ENCOUNTER → 2020-05-20 | Outpatient (CLI) | payer MEDICARE, OTHER ==
[2020-05-20 08:24] LABS: Albumin, Blood 2.6 g/dL (3.4-5.0); Albumin/Globulin Ratio 0.5 (0.8-1.8); Bilirubin, Total 0.9 mg/dL (0.1-1.0); Calcium, Blood 8.2 mg/dL (8.5-10.1); Creatinine, Blood 1.54 mg/dL (0.40-1.00); Globulin, Blood 5.6 g/dL (2.2-4.0); Potassium, Blood 3.4 mmol/L (3.5-5.5); Total Protein, Blood 8.2 g/dL (6.4-8.2)
[2020-05-20 08:43] LABS: International Normalized Ratio 1.84
== END | disposition home or self-care (01) ==
LOC: LAB RH 07:51 → LAB SHORT 07:51 → EDSTATUS 09:58
PROVIDERS: Internal Medicine Nephrology
DX: N18.32 Chronic kidney disease, stage 3b (principal); I48.91 Unspecified atrial fibrillation
CPT/HCPCS: 80053; 82140; 85610

== ENCOUNTER → 2020-05-27 | Outpatient (CLI) | payer MEDICARE, OTHER ==
[2020-05-27 12:51] LABS: International Normalized Ratio 2.16; Prothrombin Time Results 22.3 Sec (9.7-11.5)
== END | disposition home or self-care (01) ==
LOC: EDSTATUS 10:00 → LAB UVN 10:49 → LAB RH 10:49
PROVIDERS: Family Medicine
DX: N18.32 Chronic kidney disease, stage 3b (principal); N39.0 Urinary tract infection, site not specified
CPT/HCPCS: 84132; 85610

== ENCOUNTER → 2020-06-03 | Outpatient (CLI) | payer MEDICARE, OTHER ==
[2020-06-03 14:19] LABS: International Normalized Ratio 2.64
[2020-06-03 14:25] LABS: Albumin, Blood 2.6 g/dL (3.4-5.0); Albumin/Globulin Ratio 0.5 (0.8-1.8); Bilirubin, Total 0.6 mg/dL (0.1-1.0); Bun/Creatinine Ratio 22.3 (12.0-20.0); Calcium, Blood 8.6 mg/dL (8.5-10.1); Creatinine, Blood 1.39 mg/dL (0.40-1.00); Globulin, Blood 5.1 g/dL (2.2-4.0); Potassium, Blood 4.3 mmol/L (3.5-5.5); Total Protein, Blood 7.7 g/dL (6.4-8.2)
== END | disposition home or self-care (01) ==
LOC: EDSTATUS 10:01 → LAB RH 13:54
PROVIDERS: Family Medicine
DX: I48.91 Unspecified atrial fibrillation (principal); I50.32 Chronic diastolic (congestive) heart failure; N18.32 Chronic kidney disease, stage 3b
CPT/HCPCS: 80053; 82140; 85610

== ENCOUNTER → 2020-06-11 | Outpatient (CLI) | payer MEDICARE, OTHER | END | disposition home or self-care (01) | LOC: LAB RH 10:00 → LAB 10:00 → EDSTATUS 10:02 | DX: N18.32 Chronic kidney disease, stage 3b (principal) | CPT/HCPCS: 82140 ==

== ENCOUNTER → 2020-06-17 | Outpatient (CLI) | payer MEDICARE, OTHER ==
[2020-06-17 08:11] LABS: Albumin, Blood 2.8 g/dL (3.4-5.0); Albumin/Globulin Ratio 0.5 (0.8-1.8); Bilirubin, Total 0.9 mg/dL (0.1-1.0); Bun/Creatinine Ratio 18.4 (12.0-20.0); Calcium, Blood 8.7 mg/dL (8.5-10.1); Creatinine, Blood 1.36 mg/dL (0.40-1.00); Globulin, Blood 5.4 g/dL (2.2-4.0); Total Protein, Blood 8.2 g/dL (6.4-8.2)
== END | disposition home or self-care (01) ==
LOC: LAB RH 07:45 → EDSTATUS 13:32
PROVIDERS: Family Medicine
DX: J96.21 Acute and chronic respiratory failure with hypoxia (principal); N18.32 Chronic kidney disease, stage 3b
CPT/HCPCS: 80053; 82140

== ENCOUNTER → 2020-07-01 | Outpatient (CLI) | payer MEDICARE, OTHER ==
[2020-07-01 13:09] LABS: International Normalized Ratio 1.83; Prothrombin Time Results 19.1 Sec (9.7-11.5)
[2020-07-01 14:23] LABS: Albumin, Blood 2.8 g/dL (3.4-5.0); Albumin/Globulin Ratio 0.6 (0.8-1.8); Bilirubin, Total 0.7 mg/dL (0.1-1.0); Calcium, Blood 9.5 mg/dL (8.5-10.1); Creatinine, Blood 1.39 mg/dL (0.40-1.00); Potassium, Blood 4.1 mmol/L (3.5-5.5); Total Protein, Blood 7.8 g/dL (6.4-8.2)
== END | disposition home or self-care (01) ==
LOC: LAB RH 11:12 → EDSTATUS 13:34
PROVIDERS: Internal Medicine
DX: I48.91 Unspecified atrial fibrillation (principal); N18.32 Chronic kidney disease, stage 3b
CPT/HCPCS: 80053; 85610

== ENCOUNTER → 2020-07-07 | Outpatient (CLI) | payer MEDICARE, OTHER ==
[2020-07-07 10:16] LABS: BASOPHILS ABSOLUTE AUTO 0.02 K/mm3 (0.00-0.23); BASOPHILS PERCENT AUTO 1 % (0-2); EOSINOPHILS PERCENT AUTO 3 % (0-6); Hematocrit 36.5 % (33.0-51.0); Hemoglobin 10.6 g/dL (11.5-16.0); IMMATURE GRAN ABSOLUTE AUTO 0.01 K/mm3 (0.00-0.10); IMMATURE GRAN PERCENT AUTO 0 % (0-1); LYMPHOCYTES ABSOLUTE AUTO 0.58 K/mm3 (0.84-5.20); LYMPHOCYTES PERCENT AUTO 14 % (21-46); MONOCYTES ABSOLUTE AUTO 0.54 K/mm3 (0.16-1.47); MONOCYTES PERCENT AUTO 13 % (4-13); Mean Corpuscular HGB 28.6 pg (26.0-34.0); Mean Corpuscular Volume 98 fL (80-100); Mean Platelet Volume 11.1 fL (9.1-12.4); NEUTROPHILS ABSOLUTE AUTO 2.78 K/mm3 (1.96-9.15); NEUTROPHILS PERCENT AUTO 69 % (41-73); Platelet Count 211 K/mm3 (150-400); RDW Standard Deviation 57.3 fL (35.1-46.3); Red Blood Cell Count 3.71 M/mm3 (3.80-5.20); White Blood Cell Count 4.03 K/mm3 (4.00-11.30)
[2020-07-07 10:41] LABS: Albumin, Blood 2.8 g/dL (3.4-5.0); Albumin/Globulin Ratio 0.5 (0.8-1.8); Bilirubin, Direct 0.3 mg/dL (0.0-0.3); Bilirubin, Indirect 0.4 mg/dL (0.1-0.7); Bilirubin, Total 0.7 mg/dL (0.1-1.0); Bun/Creatinine Ratio 22.2 (12.0-20.0); Calcium, Blood 9.3 mg/dL (8.5-10.1); Creatinine, Blood 1.26 mg/dL (0.40-1.00); Globulin, Blood 5.4 g/dL (2.2-4.0); Phosphorus, Blood 3.4 mg/dL (2.5-4.9); Total Protein, Blood 8.2 g/dL (6.4-8.2)
== END | disposition home or self-care (01) ==
LOC: LAB RH 10:11 → EDSTATUS 11:54
PROVIDERS: Internal Medicine
DX: E72.29 Other disorders of urea cycle metabolism (principal); N18.32 Chronic kidney disease, stage 3b
CPT/HCPCS: 80053; 82140; 82248; 84100; 85025

== ENCOUNTER → 2020-07-15 | Outpatient (CLI) | payer MEDICARE, OTHER ==
[2020-07-15 10:49] LABS: International Normalized Ratio 1.57; Prothrombin Time Results 16.5 Sec (9.7-11.5)
== END ==
LOC: LAB RH 09:21 → EDSTATUS 09:56
PROVIDERS: Internal Medicine
DX: I48.91 Unspecified atrial fibrillation (principal)
CPT/HCPCS: 85610

== ENCOUNTER → 2020-08-01 | Outpatient (CLI) | payer MEDICARE, OTHER ==
[2020-08-01 15:45] LABS: BASOPHILS ABSOLUTE AUTO 0.02 K/mm3 (0.00-0.23); BASOPHILS PERCENT AUTO 0 % (0-2); EOSINOPHILS PERCENT AUTO 2 % (0-6); Hematocrit 34.3 % (33.0-51.0); Hemoglobin 10.2 g/dL (11.5-16.0); IMMATURE GRAN PERCENT AUTO 0 % (0-1); LYMPHOCYTES ABSOLUTE AUTO 0.91 K/mm3 (0.84-5.20); LYMPHOCYTES PERCENT AUTO 20 % (21-46); MONOCYTES ABSOLUTE AUTO 0.64 K/mm3 (0.16-1.47); MONOCYTES PERCENT AUTO 14 % (4-13); Mean Corpuscular HGB 29.4 pg (26.0-34.0); Mean Corpuscular HGB Conc 29.7 g/dL (31.5-36.5); Mean Corpuscular Volume 99 fL (80-100); Mean Platelet Volume 11.7 fL (9.1-12.4); NEUTROPHILS ABSOLUTE AUTO 2.86 K/mm3 (1.96-9.15); NEUTROPHILS PERCENT AUTO 63 % (41-73); Platelet Count 181 K/mm3 (150-400); RDW Coefficient Variation 15.9 % (11.7-14.2); RDW Standard Deviation 57.9 fL (35.1-46.3); Red Blood Cell Count 3.47 M/mm3 (3.80-5.20); White Blood Cell Count 4.53 K/mm3 (4.00-11.30)
[2020-08-01 16:11] LABS: Bun/Creatinine Ratio 27.8 (12.0-20.0); Calcium, Blood 8.9 mg/dL (8.5-10.1); Creatinine, Blood 1.26 mg/dL (0.40-1.00); Potassium, Blood 4.3 mmol/L (3.5-5.5)
== END | disposition home or self-care (01) ==
LOC: EDSTATUS 10:29 → LAB RH 15:38
PROVIDERS: Internal Medicine
DX: N18.32 Chronic kidney disease, stage 3b (principal)
CPT/HCPCS: 80048; 82140; 85025

== ENCOUNTER → 2020-08-19 | Outpatient (CLI) | payer MEDICARE, OTHER ==
[~2020-08-19] MED LIST changes: +ALDACTONE25 MG PO; +BUME2 PO; +CELEXA40 M1 PO; +Lopressor 25 mg25 MG PO; +MIRT30ST PO
[2020-08-19 12:32] LABS: International Normalized Ratio 2.61; Prothrombin Time Results 26.7 Sec (9.7-11.5)
== END ==
LOC: EDSTATUS 09:51 → LAB RH 10:48
PROVIDERS: Internal Medicine
DX: I48.91 Unspecified atrial fibrillation (principal); Z79.01 Long term (current) use of anticoagulants
CPT/HCPCS: 85610

== ENCOUNTER 2020-10-04 09:53 | Inpatient (IN) | payer MEDICARE, OTHER ==
[~2020-10-04] VITALS: Ht 170.2 cm; Wt 89.8 kg
[~2020-10-04 09:53] MED LIST changes: -ALDACTONE25 MG PO; -BUME2 PO; -CELEXA40 M1 PO; -Lopressor 25 mg25 MG PO; -MIRT30ST PO
[2020-10-04 10:33] LABS: BASOPHILS ABSOLUTE AUTO 0.01 K/mm3 (0.00-0.23); BASOPHILS PERCENT AUTO 0 % (0-2); EOSINOPHILS ABSOLUTE AUTO 0.09 K/mm3 (0.00-0.68); EOSINOPHILS PERCENT AUTO 1 % (0-6); Hematocrit 31.2 % (33.0-51.0); Hemoglobin 9.9 g/dL (11.5-16.0); IMMATURE GRAN ABSOLUTE AUTO 0.08 K/mm3 (0.00-0.10); IMMATURE GRAN PERCENT AUTO 1 % (0-1); LYMPHOCYTES ABSOLUTE AUTO 0.61 K/mm3 (0.84-5.20); LYMPHOCYTES PERCENT AUTO 5 % (21-46); MONOCYTES ABSOLUTE AUTO 1.55 K/mm3 (0.16-1.47); MONOCYTES PERCENT AUTO 13 % (4-13); Mean Corpuscular HGB 30.7 pg (26.0-34.0); Mean Corpuscular HGB Conc 31.7 g/dL (31.5-36.5); Mean Corpuscular Volume 97 fL (80-100); Mean Platelet Volume 11.2 fL (9.1-12.4); NEUTROPHILS ABSOLUTE AUTO 9.58 K/mm3 (1.96-9.15); NEUTROPHILS PERCENT AUTO 80 % (41-73); Platelet Count 198 K/mm3 (150-400); RDW Coefficient Variation 16.1 % (11.7-14.2); RDW Standard Deviation 56.9 fL (35.1-46.3); Red Blood Cell Count 3.23 M/mm3 (3.80-5.20); White Blood Cell Count 11.92 K/mm3 (4.00-11.30)
[2020-10-04 10:53] LABS: Albumin, Blood 2.7 g/dL (3.4-5.0); Albumin/Globulin Ratio 0.6 (0.8-1.8); Bun/Creatinine Ratio 27.6 (12.0-20.0); Calcium, Blood 9.4 mg/dL (8.5-10.1); Creatinine, Blood 2.75 mg/dL (0.40-1.00); Globulin, Blood 4.4 g/dL (2.2-4.0); Potassium, Blood 4.5 mmol/L (3.5-5.5); Total Protein, Blood 7.1 g/dL (6.4-8.2); Troponin I 0.02 ng/mL (0.000-0.040)
[2020-10-04 11:15] LABS: International Normalized Ratio 1.32
[2020-10-04] MEDS ORDERED: BUME2 PO (15:04)
[2020-10-04] MEDS ORDERED: CELEXA40 M1 PO (15:05)
[2020-10-04] MEDS ORDERED: GABA100 PO (15:06)
[2020-10-04] MEDS ORDERED: Lopressor 25 mg25 MG PO (15:07)
[2020-10-04] MEDS ORDERED: MIRT30ST PO (15:08)
[2020-10-04] MEDS ORDERED: ALDACTONE25 MG PO (15:10)
[2020-10-04 17:49] LABS: SARS-Cov-2 (COVID-19) PCR, MMC NEGATIVE (NEGATIVE)
--- NOTE | 2020-10-04 19:50 | NUR ---
SHIFT SUMMARY: PATIENT ARRIVED FROM ED AT 1845. TRANSFERRED FROM [facility] TO BED USING SLIDE SHEET. VERY WEAK, CANNOT HELP TURN HERSELF. DENIED PAIN, VERY SLEEPY. ATTENDS IN PLACE.
--- NOTE | 2020-10-05 01:58 | NUR ---
0015: LIQUOR INSPECTOR CALLS TO REPORT A 4 BEAT RUN OF V-TACH.
[2020-10-05 06:05] LABS: BASOPHILS ABSOLUTE AUTO 0.01 K/mm3 (0.00-0.23); BASOPHILS PERCENT AUTO 0 % (0-2); EOSINOPHILS ABSOLUTE AUTO 0.01 K/mm3 (0.00-0.68); EOSINOPHILS PERCENT AUTO 0 % (0-6); Hemoglobin 9.2 g/dL (11.5-16.0); IMMATURE GRAN ABSOLUTE AUTO 0.06 K/mm3 (0.00-0.10); IMMATURE GRAN PERCENT AUTO 1 % (0-1); LYMPHOCYTES ABSOLUTE AUTO 0.42 K/mm3 (0.84-5.20); LYMPHOCYTES PERCENT AUTO 4 % (21-46); MONOCYTES ABSOLUTE AUTO 1.28 K/mm3 (0.16-1.47); MONOCYTES PERCENT AUTO 12 % (4-13); Mean Corpuscular HGB 30.2 pg (26.0-34.0); Mean Corpuscular HGB Conc 30.7 g/dL (31.5-36.5); Mean Corpuscular Volume 98 fL (80-100); Mean Platelet Volume 11.4 fL (9.1-12.4); NEUTROPHILS ABSOLUTE AUTO 8.97 K/mm3 (1.96-9.15); NEUTROPHILS PERCENT AUTO 83 % (41-73); Platelet Count 180 K/mm3 (150-400); RDW Coefficient Variation 16.2 % (11.7-14.2); RDW Standard Deviation 57.5 fL (35.1-46.3); Red Blood Cell Count 3.05 M/mm3 (3.80-5.20); White Blood Cell Count 10.75 K/mm3 (4.00-11.30)
[2020-10-05 06:22] LABS: International Normalized Ratio 1.43; Prothrombin Time Results 15.1 Sec (9.7-11.5)
[2020-10-05 06:40] LABS: Albumin, Blood 2.4 g/dL (3.4-5.0); Albumin/Globulin Ratio 0.6 (0.8-1.8); Bilirubin, Total 1.2 mg/dL (0.1-1.0); Calcium, Blood 8.4 mg/dL (8.5-10.1); Creatinine, Blood 3.16 mg/dL (0.40-1.00); Globulin, Blood 4.1 g/dL (2.2-4.0); Magnesium, Blood 2.6 mg/dL (1.6-2.4); Potassium, Blood 5.6 mmol/L (3.5-5.5); Total Protein, Blood 6.5 g/dL (6.4-8.2)
--- NOTE | 2020-10-05 07:31 | NUR ---
SHIFT SUMMARY PT HAD A BLOODY VOID AT 0500 THIS AM. THE ATTENDS WERE SOAKED WITH URINE MIXED WITH DARK RED BLOOD, UNABLE TO DETERMINE IF THE BLOOD WAS COMING FROM URETHRA OR VAGINA. VAGINAL AREA WAS DARK RED. PT REPORTS ABD PAIN, CONSISTENT WITH PANCREATITIS. USING 3LPM OF OXYGEN VIA NC.
--- NOTE | 2020-10-05 21:23 | NUR ---
SHIFT SUMMARY: NO ACUTE EVENTS. NO HEMATURIA REPORTED BY CONSTRUCTION SUPERVISOR. C/O MILD PAIN IN UPPER ABDOMEN, STATED IT WAS TOLERABLE AND BETTER THAN IT HAD BEEN BEFORE. TOLERATING PO INTAKE, NO EMESIS. POOR PERFUSION IN BILATERAL HANDS AND FEET, DIFFICULT TO OBTAIN ACCURATE O2 SATURATION, NO RESP COMPLAINTS. O2 @ 3-4 L/MIN NC. NO EVENTS ON TELEMETRY, AFIB LOW 100'S.
[2020-10-06 05:27] LABS: Hematocrit 28.1 % (33.0-51.0); Hemoglobin 8.8 g/dL (11.5-16.0); Mean Corpuscular HGB Conc 31.3 g/dL (31.5-36.5); Mean Corpuscular Volume 96 fL (80-100); Mean Platelet Volume 11.7 fL (9.1-12.4); NRBC ABSOLUTE 0.02 K/mm3 (0.00-0.02); NRBC Auto 0.2 /100 WBC (0.0-0.2); Platelet Count 166 K/mm3 (150-400); RDW Coefficient Variation 15.6 % (11.7-14.2); RDW Standard Deviation 54.4 fL (35.1-46.3); Red Blood Cell Count 2.93 M/mm3 (3.80-5.20); White Blood Cell Count 9.73 K/mm3 (4.00-11.30)
[2020-10-06 05:42] LABS: International Normalized Ratio 1.99; Prothrombin Time Results 20.7 Sec (9.7-11.5)
[2020-10-06 05:49] LABS: Albumin, Blood 2.3 g/dL (3.4-5.0); Albumin/Globulin Ratio 0.6 (0.8-1.8); Bun/Creatinine Ratio 23.9 (12.0-20.0); Calcium, Blood 8.1 mg/dL (8.5-10.1); Creatinine, Blood 3.6 mg/dL (0.40-1.00); Potassium, Blood 5.2 mmol/L (3.5-5.5); Total Protein, Blood 6.3 g/dL (6.4-8.2)
--- NOTE | 2020-10-06 07:37 | NUR ---
SHIFT SUMMARY PT C/O PAIN TO HER LEFT FOOT, CRYING OUT IN PAIN. CALLED DR. CALVILLO AT 0200 AND RECEIVED ORDERS FOR TRAMADOL 50MG Q 6HRS PRN PAIN. AFTER RECEIVING TRAMADOL, PT SLEPT WELL THE REST OF THE SHIFT. DENIES PAIN TO HER ABD.
[2020-10-06 10:36] LABS: Percent Saturation 22.8 % (15.0-50.0)
[2020-10-06 12:00] LABS: SARS-Cov-2 (COVID-19) PCR, MMC NEGATIVE (NEGATIVE)
--- NOTE | 2020-10-06 15:06 | NUR ---
DISCHARGE SUMMARY PT AxOx3 WITH INTERMITTENT CONFUSION AND SLEEPINESS. PT PLEASANT AND COOPERATIVE WITH CARE. PT DISCHARGING BACK TO [facility] TODAY. PT VITAL SIGNS REVIEWED. DC PAPERWORK GIVEN TO TRANSPORTER AND PATIENT SAFELY ESCORTED OUT VIA GURNEY.
== END 2020-10-06 14:21 | DRG 438 ==
LOC: ER 09:53 → ERHOLD 15:29 → MEDS 18:42
PROVIDERS: Student in an Organized Health Care Education/Training Program; ADMIT Internal Medicine
DX: K85.90 Acute pancreatitis without necrosis or infection, unspecified (principal); J96.01 Acute respiratory failure with hypoxia; J96.21 Acute and chronic respiratory failure with hypoxia; Z66 Do not resuscitate; Z95.2 Presence of prosthetic heart valve; D63.8 Anemia in other chronic diseases classified elsewhere; Z88.2 Allergy status to sulfonamides; Z88.8 Allergy status to other drugs, medicaments and biological substances; Z88.1 Allergy status to other antibiotic agents; Z88.0 Allergy status to penicillin; I11.0 Hypertensive heart disease with heart failure; J44.9 Chronic obstructive pulmonary disease, unspecified; F03.90 Unspecified dementia, unspecified severity, without behavioral disturbance, psychotic disturbance, mood disturbance, and anxiety; I48.91 Unspecified atrial fibrillation; Z96.649 Presence of unspecified artificial hip joint
CPT/HCPCS: 36415; 71045; 74176; 80053; 82728; 83540; 83550; 83690; 83735; 83880; 84484; 85025; 85027; 85610; 93005; 93010; 96374; 96375; 99285-25; A9270; J1650; J1940; J2270; J2405; P9046; U0004

== ENCOUNTER 2020-10-09 13:10 | Inpatient (IN) | payer MEDICARE, OTHER ==
[~2020-10-09] VITALS: Ht 170.2 cm; Wt 99.8 kg
[~2020-10-09 13:10] MED LIST changes: +ALDACTONE25 MG PO; +BUME2 PO; +CELEXA40 M1 PO; +Lopressor 25 mg25 MG PO; +MIRT30ST PO
[2020-10-09 13:48] LABS: Source, Urine Catheter
[2020-10-09 13:53] LABS: Appearance, Urine Clear (Clear); Bilirubin, Urine Neg (Neg); Blood, Urine Neg (Neg); Color, Urine Yellow (P-Yellow); Glucose Qualitative, Urine Neg (Neg); Ketones, Urine Neg (Neg); Leukocyte Esterase, Urine Neg (Neg); Nitrite, Urine Neg (Neg); Protein, Urine 2+ (Neg); Urobilinogen, Urine NORM (Normal)
[2020-10-09 13:59] LABS: BASOPHILS ABSOLUTE AUTO 0.01 K/mm3 (0.00-0.23); BASOPHILS PERCENT AUTO 0 % (0-2); EOSINOPHILS ABSOLUTE AUTO 0.05 K/mm3 (0.00-0.68); EOSINOPHILS PERCENT AUTO 0 % (0-6); Hematocrit 28.7 % (33.0-51.0); Hemoglobin 9.3 g/dL (11.5-16.0); IMMATURE GRAN ABSOLUTE AUTO 0.09 K/mm3 (0.00-0.10); IMMATURE GRAN PERCENT AUTO 1 % (0-1); LYMPHOCYTES ABSOLUTE AUTO 0.99 K/mm3 (0.84-5.20); LYMPHOCYTES PERCENT AUTO 8 % (21-46); MONOCYTES ABSOLUTE AUTO 2.12 K/mm3 (0.16-1.47); MONOCYTES PERCENT AUTO 17 % (4-13); Mean Corpuscular HGB 30.4 pg (26.0-34.0); Mean Corpuscular HGB Conc 32.4 g/dL (31.5-36.5); Mean Corpuscular Volume 94 fL (80-100); Mean Platelet Volume 11.2 fL (9.1-12.4); NEUTROPHILS ABSOLUTE AUTO 9.59 K/mm3 (1.96-9.15); NEUTROPHILS PERCENT AUTO 75 % (41-73); NRBC ABSOLUTE 0.05 K/mm3 (0.00-0.02); NRBC Auto 0.4 /100 WBC (0.0-0.2); Platelet Count 193 K/mm3 (150-400); RDW Coefficient Variation 15.6 % (11.7-14.2); RDW Standard Deviation 52.6 fL (35.1-46.3); Red Blood Cell Count 3.06 M/mm3 (3.80-5.20); White Blood Cell Count 12.85 K/mm3 (4.00-11.30)
[2020-10-09 14:20] LABS: Albumin, Blood 2.7 g/dL (3.4-5.0); Albumin/Globulin Ratio 0.7 (0.8-1.8); Calcium, Blood 7.7 mg/dL (8.5-10.1); Creatinine, Blood 6.6 mg/dL (0.40-1.00); Globulin, Blood 4.1 g/dL (2.2-4.0); Potassium, Blood 6.2 mmol/L (3.5-5.5); Total Protein, Blood 6.8 g/dL (6.4-8.2)
[2020-10-09 14:26] LABS: Bacteria Few /hpf; Red Blood Cells, Urine 0-2 /hpf (0-2); Squamous Epithelial Cells Few /hpf (Few); White Blood Cells, Urine 0-2 /hpf (0-5)
[2020-10-09 14:27] LABS: Calcium Oxalate Crystals Mod /hpf
[2020-10-09 14:53] LABS: International Normalized Ratio 3.29; Prothrombin Time Results 33.2 Sec (9.7-11.5)
[2020-10-09 15:35] LABS: SARS-Cov-2 (COVID-19) PCR, MMC NEGATIVE (NEGATIVE)
[2020-10-09] MEDS ORDERED: METO25ER PO (16:00)
[2020-10-09 18:19] LABS: Albumin, Blood 2.8 g/dL (3.4-5.0); Anion Gap 11 mmol/L (6-16); Blood Urea Nitrogen 124 mg/dL (8-24); Bun/Creatinine Ratio 19.2 (12.0-20.0); CO2, Blood 24 mmol/L (21-32); Calcium, Blood 7.7 mg/dL (8.5-10.1); Chloride, Blood 99 mmol/L (98-108); Creatinine, Blood 6.46 mg/dL (0.40-1.00); Glomerular Filtration Rate 6 (60-); Glucose, Blood 111 mg/dL (70-99); Phosphorus, Blood 8.4 mg/dL (2.5-4.9); Potassium, Blood 6.3 mmol/L (3.5-5.5); Sodium, Blood 134 mmol/L (136-145)
[2020-10-09 23:05] LABS: Albumin, Blood 2.9 g/dL (3.4-5.0); Anion Gap 11 mmol/L (6-16); Blood Urea Nitrogen 125 mg/dL (8-24); CO2, Blood 24 mmol/L (21-32); Calcium, Blood 7.9 mg/dL (8.5-10.1); Chloride, Blood 99 mmol/L (98-108); Creatinine, Blood 6.96 mg/dL (0.40-1.00); Glomerular Filtration Rate 6 (60-); Glucose, Blood 123 mg/dL (70-99); Phosphorus, Blood 8.2 mg/dL (2.5-4.9); Sodium, Blood 134 mmol/L (136-145)
[2020-10-10 02:34] LABS: Hemoglobin 9.3 g/dL (11.5-16.0); Mean Corpuscular HGB 30.7 pg (26.0-34.0); Mean Corpuscular HGB Conc 32.1 g/dL (31.5-36.5); Mean Corpuscular Volume 96 fL (80-100); Mean Platelet Volume 10.8 fL (9.1-12.4); NRBC ABSOLUTE 0.06 K/mm3 (0.00-0.02); NRBC Auto 0.5 /100 WBC (0.0-0.2); Platelet Count 166 K/mm3 (150-400); RDW Coefficient Variation 15.7 % (11.7-14.2); Red Blood Cell Count 3.03 M/mm3 (3.80-5.20)
[2020-10-10 03:31] LABS: Albumin, Blood 2.9 g/dL (3.4-5.0); Albumin/Globulin Ratio 0.7 (0.8-1.8); Bilirubin, Total 1.2 mg/dL (0.1-1.0); Bun/Creatinine Ratio 18.2 (12.0-20.0); Calcium, Blood 8.2 mg/dL (8.5-10.1); Creatinine, Blood 6.91 mg/dL (0.40-1.00); Potassium, Blood 6.2 mmol/L (3.5-5.5); Total Protein, Blood 6.9 g/dL (6.4-8.2)
[2020-10-10 07:19] LABS: Bun/Creatinine Ratio 17.7 (12.0-20.0); Calcium, Blood 7.6 mg/dL (8.5-10.1); Creatinine, Blood 7.06 mg/dL (0.40-1.00); Potassium, Blood 5.9 mmol/L (3.5-5.5)
--- NOTE | 2020-10-10 11:15 | NUR ---
Ethics consult order received and processed. The principal is a frail women of advanced age, being held in the ER, who is decompensating secondary to multi-system organ failure. Conversations have ensued as to the appropriateness of surgically treating the principal, with the end result of placing a permanent catheter to accomodate for renal dyalisis. Given the poor trajectory of the patient, her probability of not tolerating ongoing dialysis, her rapidly declining and terminal condition, and her advance care planning instrument stipulating a decidely non-aggressive care strategy, it would be medically irresponsible and ethically problematic to impose such an unwanted, non-beneficial, and disproportionate burden on the patient. To proceed with such a plan without the principle revoking her POLST would be an abuse to her dignity and autonomy of choice, and would constitute an act of medical battery. Thank you for this consult. Srinivasan Delcid ThD
--- NOTE | 2020-10-10 13:48 | NUR ---
Called to ER to assess pt. pt minimally responsive and hypotensive. worseing organ system failure. Pt was scheduled for dialysis catheter placement. Pt has polst that states no cpr and limited interventions. Review of plan with interventional radiologist He is concered pt will not tolerate procedure. Pt kps score is 20%. Reviiew of case with ethics team. Contacted pt daughter and family and carefully reviewed diailysis and prognosis. Family had a meeting and called back and decided to make pt comfort care. Offered to send her back to [facility] but family does not want her back there not sure she can tolerate the transfer.
--- NOTE | 2020-10-10 19:04 | NUR ---
SHIFT SUMMARY PT ADMITTED FROM [facility]ARE. PT TO DC HOME WITH FAMILY ON HOSPICE TOMORROW. PT LOOKS IMMINENT. PALLIATIVE CARE CONSULTED. FAMIY AT THE BEDSIDE SINCE PT SEEMS IMMINENT. FISCHER AND RECTAL TUBE IN PLACE. WILL REPORT TO CACHORRO MERRILL.
--- NOTE | 2020-10-10 20:23 | NUR ---
multiple visits pt more comfortable. Repirations changing pt looks eminent. Nursing had to increase roaxinol for air hunger. Brought her a quilt and got cofort cart and lavender for her family. They are very happy to see her that have not had contact for a months. After seeing her they were reassured they made the right choice to move towards hospice.
--- NOTE | 2020-10-11 12:59 | NUR ---
PT PASSED AT 1255. PT WAS COMFORTABLE AND HAD DAUGHTER IN THE ROOM. DAUGHTER INFORMING FAMILY MEMBERS. CONFIRMED WITH HIGH ENERGY FORMING EQUIPMENT OPERATOR. PHYSICIAN NOTIFIED.
--- NOTE | 2020-10-11 14:19 | NUR ---
pt passed peacfully with family at bedside.
== END 2020-10-11 12:55 | DRG 441 ==
LOC: ER 13:10 → MEDS 16:29 → ERHOLD 16:29 → MEDS 10-10 15:25
PROVIDERS: Emergency Medicine; Internal Medicine Nephrology; ADMIT Internal Medicine
DX: K72.00 Acute and subacute hepatic failure without coma (principal); G93.41 Metabolic encephalopathy; N17.9 Acute kidney failure, unspecified; I50.32 Chronic diastolic (congestive) heart failure; E87.1 Hypo-osmolality and hyponatremia; J96.10 Chronic respiratory failure, unspecified whether with hypoxia or hypercapnia; N25.81 Secondary hyperparathyroidism of renal origin; Z66 Do not resuscitate; Z51.5 Encounter for palliative care; E87.5 Hyperkalemia; D63.1 Anemia in chronic kidney disease; I48.91 Unspecified atrial fibrillation; Z95.2 Presence of prosthetic heart valve; Z96.641 Presence of right artificial hip joint; Z88.2 Allergy status to sulfonamides; Z88.0 Allergy status to penicillin; Z88.1 Allergy status to other antibiotic agents; Z88.8 Allergy status to other drugs, medicaments and biological substances; Z79.899 Other long term (current) drug therapy; Z20.822 Contact with and (suspected) exposure to COVID-19; J44.9 Chronic obstructive pulmonary disease, unspecified; N18.9 Chronic kidney disease, unspecified; E83.39 Other disorders of phosphorus metabolism; Z79.01 Long term (current) use of anticoagulants
CPT/HCPCS: 36415; 51702; 71045; 76770; 80048; 80053; 80069; 81001; 82140; 83605; 83735; 84100; 85025; 85027; 85610; 93005; 93010; 96365-59; 99285-25; A9270; J0610; J1815; J7040; J7060; U0004